=== PATIENT | male | born 1935 | race Caucasian/White ===

== ENCOUNTER 2017-08-17 15:38 | Emergency (ER) | payer OTHER ==
[2017-08-17 15:52] VITALS: BP 156/97
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
== END 2017-08-17 18:18 | disposition home or self-care (01) ==
DX: S06.0X0A Concussion without loss of consciousness, initial encounter (principal); S70.02XA Contusion of left hip, initial encounter; I10 Essential (primary) hypertension; I25.10 Atherosclerotic heart disease of native coronary artery without angina pectoris; Z87.891 Personal history of nicotine dependence; Z79.82 Long term (current) use of aspirin; V18.2XXA Unspecified pedal cyclist injured in noncollision transport accident in nontraffic accident, initial encounter

== ENCOUNTER 2017-08-25 17:19 | Emergency (ER) | payer OTHER ==
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
[2017-08-25] MEDS ORDERED: ACETAMINOPHEN 500 MG TAB PO ONE (18:32)
[2017-08-25 20:11] VITALS: BP 158/78
== END 2017-08-25 20:23 | disposition home or self-care (01) ==
DX: S42.142A Displaced fracture of glenoid cavity of scapula, left shoulder, initial encounter for closed fracture (principal); S70.02XA Contusion of left hip, initial encounter; I10 Essential (primary) hypertension; I25.10 Atherosclerotic heart disease of native coronary artery without angina pectoris; Z95.5 Presence of coronary angioplasty implant and graft; Z79.82 Long term (current) use of aspirin; W01.0XXA Fall on same level from slipping, tripping and stumbling without subsequent striking against object, initial encounter

== ENCOUNTER 2017-09-17 09:39 | Inpatient (IN) | payer OTHER ==
--- NOTE | 2017-09-17 10:00 | CPEKG ---
Heart Rate: 74 RR Interval: 811 P-R Interval: 168 QRSD Interval: 92 QT Interval: 404 QTC Interval: 449 P [place]: 74 QRS [place]: 46 T Wave [place]: 39 EKG Severity - NORMAL ECG - EKG Impression: SINUS RHYTHM Electronically Signed By: Paulo Chisholm 17-Sep-2017 14:10:10
--- NOTE | 2017-09-17 10:18 | EDPHY ---
H & P Stated Complaint: DIFFICULTY SPEAKING, R ARM NUMBNESS Time Seen by Provider: 09/17/17 09:53 HPI/ROS: Chief Complaint: Difficulty speaking, numbness HPI: 82-year-old male with a history of coronary artery disease, diabetes and hypertension was reading his newspaper at 8:45 a.m. This morning when he was having difficulty understanding the words and had to reduce several times. He tried to speak with his and he was unable to get words out. He also is complaining of some weakness and numbness in his right face and right hand. This persisted for about 30-45 minutes. Does not have a history of similar episodes in the past. He says he feels much better and about back to his baseline now. Denies any recent falls. No chest pain shortness of breath. He does take a full adult aspirin every day. 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 ROS: 10 point Review of Systems is negative except as noted in the HPI. Social History: No smoking, no alcohol, no recreational drug use Family History: non-contributory Physical Exam: Gen: Awake, Alert, No Distress HEENT: Nose: no rhinorrhea Eyes: PERRLA, EOMI Mouth: Moist mucosa Neck: Supple, no JVD Chest: nontender, lungs clear to auscultation Heart: S1, S2 normal, no murmur Abd: Soft, non-tender, no guarding Back: no CVA tenderness, no midline tenderness Ext: no edema, non-tender Skin: no rash Neuro: See NIH stroke score - Personal History Current Tetanus/Diphtheria Vaccine: Unsure Tetanus Vaccine Date: guessing 10 years ago - Medical/Surgical History Hx Asthma: No Hx Chronic Respiratory Disease: No Hx Diabetes: No Hx Cardiac Disease: Yes Hx Renal Disease: No Hx Cirrhosis: No Hx Alcoholism: No Hx HIV/AIDS: No Hx Splenectomy or Spleen Trauma: No Other PMH: 2 Stents, CAD, prostate surgery, hernia repair surgery, HTN, knee sx , chronic back pain, NIDDM, hyperlipidemia - Social History Smoking Status: Former smoker Constitutional: Initial Vital Signs Temperature (C) 36.8 C 09/17/17 09:44 Heart Rate 81 09/17/17 09:44 Respiratory Rate 16 09/17/17 09:44 Blood Pressure 178/100 H 09/17/17 09:44 O2 Sat (%) 92 09/17/17 09:44 O2 Delivery Mode Room Air Allergies/Adverse Reactions: No Known Allergies Allergy (Verified 08/17/17 15:53) Home Medications: Medication Instructions Recorded Pantoprazole Sodium [Protonix 40mg 40 mg PO DAILY 04/25/15 (*)] Aspirin [Aspirin 325 mg (*)] 325 mg PO HS 08/17/17 Clopidogrel Bisulfate [Plavix (*)] 75 mg PO HS 08/17/17 metFORMIN HCL [Glucophage 500 mg 500 mg PO DAILY 08/17/17 (*)] Atorvastatin Calcium [Lipitor 40 80 mg PO HS 09/17/17 mg (*)] Calcium Carbonate [Oyster Shell 500 mg PO DAILY 09/17/17 Calcium 500 mg (*)] Carboxymethylcellulose 1% [Refresh 1 drop EACHEYE DAILY PRN 09/17/17 Celluvisc (*)] Cholecalciferol Vit D3 [Vitamin D3 1,000 units PO DAILY 09/17/17 (*)] Lactase [Lactase 3000 Unit (*)] 3,000 unit PO DAILY PRN 09/17/17 Losartan Potassium [Cozaar 25 mg 25 mg PO DAILY 09/17/17 (*)] Melatonin [Melatonin 3 MG (*)] 3 mg PO HS PRN 09/17/17 Metoprolol Succinate Xr [Toprol Xl 50 mg PO HS 09/17/17 50 mg (*)] Multivitamins [Multivitamin (*)] 1 each PO DAILY 09/17/17 metFORMIN HCL [Glucophage 1000 mg] 1,000 mg PO DAILY18 09/17/17 Medical Decision Making - Diagnostics Imaging Results: Imaging Impressions Head CT 09/17/17 09:54 Impression: Stable elderly head CT x 5 weeks. Results called and discussed with Paulo Chisholm MD, at 09/17/2017 10:49 General information for patients regarding this examination can be found at [email or web address]. If you have questions or comments about this report, please contact me at [phone] (hospital) or [phone] (cell). Imaging: Discussed imaging studies w/ career representative Radiologist ED Course/Re-evaluation: 82-year-old male with episode of a facial numbness. Symptoms have resolved. NIH score of [address] head is unremarkable for acute process per Dr. Villa. I have discussed with the hospitalist. Will be admitted under Dr. Perez for further evaluation. - Data Points Laboratory Results: Laboratory Results 09/17/17 09:45 09/17/17 09:49 09/17/17 09/17/17 09/17/17 09:54 09:49 09:45 WBC 4.67 10^3/uL 10^3/uL (3.80-9.50) RBC 3.56 10^6/uL L 10^6/uL (4.40-6.38) Hgb 11.6 g/dL L g/dL (13.7-17.5) POC Hgb 10.9 gm/dL L gm/dL (13.7-17.5) Hct 33.5 % L % (40.0-51.0) POC Hct 32 % L % (40-51) MCV 94.1 fL fL (81.5-99.8) MCH 32.6 pg pg (27.9-34.1) MCHC 34.6 g/dL g/dL (32.4-36.7) RDW 14.0 % % (11.5-15.2) Plt Count 148 10^3/uL L 10^3/uL (150-400) MPV 9.4 fL fL (8.7-11.7) Neut % (Auto) 61.1 % % (39.3-74.2) Lymph % (Auto) 30.2 % % (15.0-45.0) [place] % (Auto) 6.6 % % (4.5-13.0) Eos % (Auto) 1.3 % % (0.6-7.6) Baso % (Auto) 0.6 % % (0.3-1.7) Nucleat RBC Rel Count 0.0 % % (0.0-0.2) Absolute Neuts (auto) 2.85 10^3/uL 10^3/uL (1.70-6.50) Absolute Lymphs (auto) 1.41 10^3/uL 10^3/uL (1.00-3.00) Absolute Monos (auto) 0.31 10^3/uL 10^3/uL (0.30-0.80) Absolute Eos (auto) 0.06 10^3/uL 10^3/uL (0.03-0.40) Absolute Basos (auto) 0.03 10^3/uL 10^3/uL (0.02-0.10) Absolute Nucleated RBC 0.00 10^3/uL 10^3/uL (0-0.01) Immature Gran % 0.2 % % (0.0-1.1) Immature Gran # 0.01 10^3/uL 10^3/uL (0.00-0.10) POC Sodium 142 mEq/L mEq/L (135-145) Sodium 142 mEq/L mEq/L (135-145) POC Potassium 4.1 mEq/L mEq/L (3.3-5.0) Potassium 4.2 mEq/L mEq/L (3.3-5.0) POC Chloride 102 mEq/L mEq/L (97-110) Chloride 103 mEq/L mEq/L (97-110) Carbon Dioxide 29 mEq/l mEq/l (22-31) Anion Gap 10 mEq/L mEq/L (8-16) POC BUN 23 mg/dL mg/dL (7-23) BUN 23 mg/dL mg/dL (7-23) Creatinine 1.0 mg/dL mg/dL (0.7-1.3) POC Creatinine 1.2 mg/dL mg/dL (0.7-1.3) Estimated GFR > 60 Glucose 218 mg/dL H mg/dL (70-100) POC Glucose 225 mg/dL H mg/dL (70-100) Calcium 9.8 mg/dL mg/dL (8.5-10.4) Total Bilirubin 0.7 mg/dL mg/dL (0.1-1.4) AST 24 IU/L IU/L (17-59) ALT 33 IU/L IU/L (21-72) Alkaline Phosphatase 60 IU/L IU/L (38-126) Total Protein 6.4 g/dL g/dL (6.3-8.2) Albumin 3.9 g/dL g/dL (3.5-5.0) Point of Care Test Results: Chemistry 09/17/17 09:54 POC Sodium 142 mEq/L mEq/L (135-145) POC Potassium 4.1 mEq/L mEq/L (3.3-5.0) POC Chloride 102 mEq/L mEq/L (97-110) POC BUN 23 mg/dL mg/dL (7-23) POC Creatinine 1.2 mg/dL mg/dL (0.7-1.3) POC Glucose 225 mg/dL H mg/dL (70-100) ISTAT H&H 09/17/17 09:54 POC Hgb 10.9 gm/dL L gm/dL (13.7-17.5) POC Hct 32 % L % (40-51) NIH Stroke Scale Date of Exam: 09/17/17 Time of Exam: 09:45 Level of Consciousness: Alert LOC Questions: Answers Both LOC Commands: Performs Both Correctly Best Gaze: Normal Visual: No Visual Loss Facial Palsy: Normal Motor Arm-Left: No Drift Motor Arm-Right: No Drift Motor Leg-Left: No Drift Motor Leg-Right: No Drift Limb Ataxis: Absent Sensory: Normal Best Language: No Aphasia Dysarthria: Normal Extinction and Inattention (Neglect): No Abnormality NIH Scale Score: 0
[2017-09-17 10:49] LABS: PLATELET COUNT 148 10^3/uL (150-400)
[2017-09-17] MEDS ORDERED: ONDANSETRON DISINTEGRATING 4 MG TAB PO PRN (12:23)
[2017-09-17] MEDS ORDERED: ONDANSETRON 4 MG/2 ML VIAL IVP PRN (12:23)
[2017-09-17] MEDS: ACETAMINOPHEN 325 MG TAB PO PRN ×2 (12:41→18:20)
[2017-09-17] MEDS ORDERED: CARBOXYMETHYLCELLULOSE 1% 0.4 ML DROPERETTE EACHEYE PRN (12:45)
[2017-09-17] MEDS ORDERED: MELATONIN 3 MG TAB PO PRN (12:45)
[2017-09-17] MEDS ORDERED: LACTASE 3,000 UNIT TAB PO PRN (12:45)
[2017-09-17] MEDS ORDERED: D50W 25 GM/50 ML SYR IVP PRN (12:49)
--- NOTE | 2017-09-17 13:47 | GHP ---
[f rep st] HISTORY AND PHYSICAL DATE OF ADMISSION: 09/17/2017 CHIEF COMPLAINT: Difficulty speaking. HISTORY OF PRESENT ILLNESS: This is an 82-year-old man with a history of heart disease, who presents with difficulty speaking. This occurred at about 8:30 this morning. He was trying to read the news paper, had no problem with his vision, but was unable to understand what he was reading. He also not iced that his right arm was "clumsy." He got up to go to the bathroom, felt odd with these symptoms, as well as a headache, and was going to ask his to bring him to the hospital. He had significa nt difficulty getting these words out. This was not associated with any other weakness in his legs o r confusion. Symptoms resolved in about 20 minutes. He tells me that all the symptoms are completel y resolved, except for the headache. He follows with Varun Miles, had a heart monitor placed about a week ago. He was told that he was skipping beats. He checks his blood pressure at home. His blood pressure was very normal about an hour before the event happened. PAST MEDICAL/SURGICAL HISTORY: 1. Coronary artery disease. 2. Hyperlipidemia. 3. Hypertension. 4. Diabetes mellitus. 5. Chronic kidney disease. 6. 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 7. Lung nodule with a negative biopsy. 8. Prostate cancer, status post radical resection about 25 years ago. MEDICATIONS: Please see medication reconciliation. ALLERGIES: No known drug allergies. FAMILY HISTORY: He believes that his father had a stroke. SOCIAL HISTORY: He drinks about two 5-ounce glasses of wine a night and about 2-3 beers a week. He does not smoke. REVIEW OF SYSTEMS: He has a 10-point negative review of systems, except per HPI. PHYSICAL EXAM: VITAL SIGNS: Blood pressure initially on presentation was 178/100, down to 156/77, h eart rate 81, respiration rate 16, saturating at 92% on room air. Temperature 36.8. GENERAL: The kaela stevens is a pleasant man who is resting comfortably, fully participating in the interview. HEENT: ows him to be normocephalic, atraumatic. CARDIOVASCULAR: Quite diminished S1 and S2. He has occasi onal premature beats. I do not appreciate any murmurs, rubs, or gallops. PULMONARY: Lungs clear to auscultation bilaterally. ABDOMEN: Soft, nontender, nondistended. SKIN: No rash. : No Preston. NEUROLOGIC: Exam shows him to be alert and oriented x3. Cranial nerves 2-12 are intact. Finger-to -nose, as well as dysmetria are normal bilaterally. His motor is 5/5 in the upper and lower extremit ies throughout. He has sensation to light touch intact in the upper and lower extremities. PSYCHIAT ROWAN: Exam shows a normal mood and affect. LABS: His hemoglobin is 11.6. This is the same as his last lab check. Platelets are 148. Basic met abolic panel shows a creatinine of 1.0. Sugar is 218. LFTs are unremarkable. DATA: 1. Reviewed his head CT scan. This shows nothing acute since the last head CT scan 5 weeks ago. 2. EKG, which I personally reviewed and interpreted, shows sinus rhythm. He has mild T-wave flatten ing in lead III. He has a normal axis. IMPRESSION AND PLAN: 1. Neurologic changes: Suspect that this was a transient ischemic attack. Also consider could cons ider complex migraine, as well as hypertensive encephalopathy. Symptoms have resolved. He is curren tly on maximal treatment for his heart disease, which is appropriate treatment for a transient ischem ic attack. This would change if he is having intermittent atrial fibrillation. Will get a carotid u ltrasound of his neck. I would hold on contrast imaging given low likelihood of changing management and mild chronic kidney disease. We will check an echocardiogram, place him on telemetry and have pl aced a neurology consult. 2. Coronary artery disease: He follows with Dr. Miles. He did have stents placed, but not recentl y. We will continue his aspirin, Plavix, statin, and beta-rosalio. 3. Hypertension: Will follow his blood pressures while he is here. Will continue his metoprolol fo r now. Would not be too aggressive with his blood pressure control at this time. 4. Diabetes mellitus: Will hold his metformin, follow his blood sugars, place him on sliding scale insulin. 5. Chronic kidney disease: Creatinine is normal at this point. Will be careful with nephrotoxins. 6. Prostate cancer, status post radical resection. He is followed by Dr. Yang. He has an artifici al urethral sphincter in. He would need a urology consult prior to placing a Preston if this becomes n ecessary. 7. Still waiting on urinalysis. 8. He is a full code, full tube. He confirms this with me. Copy requested to: Dr. Franco Osborne Marketing Developer /[id number]/[id number]
--- NOTE | 2017-09-17 16:13 | GCON ---
[f rep st] CONSULTATION NEUROLOGY CONSULTATION DATE OF CONSULTATION: 09/17/2017 REFERRING PHYSICIAN: Everton Perez MD CHIEF COMPLAINT: Transient neurologic symptoms. HISTORY OF PRESENT ILLNESS: The patient is a very pleasant 82-year-old gentleman with known coronary artery disease on dual antiplatelet therapy with aspirin and Plavix. The patient also is being monitored for [address] Miles of Cardiology for any possible underlying dysrhythmia. He does not have a diagnosis of atrial fibrillation or atrial flutter at this point that I am aware of. The patient was sitting at home after breakfast reading the paper this morning when he suddenly realized he could see the words and letters, but had trouble comprehending meaning from the words and sentences and was unable to read clearly. He struggled to do this for a few minutes and then realized that his right hand was discoordinated. Prior to these symptoms starting, the patient had a slow onset of holocephalic or occipital headache, which slowly grew in intensity with the symptoms starting as described above. He has no history of migraines personally. He then spoke to his and found that he knew what he wanted to say, but the words were coming out less clearly or nonsensically. All of these symptoms lasted for around 20 to 30 minutes and spontaneously resolved. The headache continued and now is slowly diminishing over several hours after the focal neurologic symptoms resolved. He came into the emergency department and was found to have a blood pressure of 170s over 100, which is very elevated for this patient. It is now lowering. He had a carotid Doppler, which is pending. Echo ordered and pending. The head CT showed nothing acute. PAST MEDICAL/SOCIAL/FAMILY/HISTORY/MEDICATIONS/ALLERGIES: See Dr. Perez's H and P. PHYSICAL EXAMINATION: VITAL SIGNS: Blood pressure is now 140s over 70s. He is afebrile. Respiration 18. GENERAL: In no acute distress, very pleasant. NEUROLOGIC: Higher mental function: He is awake and alert. He has no aphasia now. His speech is fluent and clear. He can follow commands 5/5, names 5/5, and repeat 5/5. Cranial nerve exam is normal 2 through 7. He has no facial droop or weakness. On motor exam, there is no focal weakness. Sensory is normal to light touch throughout. Coordination is normal. IMPRESSION/PLAN: 1. Transient neurologic symptoms, resolved. 2. Hypertension. 3. Coronary artery disease. I think the primary differential diagnosis for these transient neurologic symptoms are a left hemisphere transient ischemic attack or a hypertensive encephalopathy with focal symptoms. The factors suggesting hypertensive encephalopathy with transient ischemic attack-like symptoms would be the concomitant headache and elevated blood pressures upon initial evaluation in the emergency department. However, I counseled the patient that we should treat this as if he had a left hemisphere transient ischemic attack. He is agreeable to the plan. He will continue dual anti-platelet therapy. We will await results of echocardiogram and carotid ultrasound. If there are no significant abnormalities on echocardiogram or carotid ultrasound, then the plan would be to discharge with Cardiology followup with his 30 day event monitor. If the 30-day event monitor is negative, then consideration for an implantable area operations director (LINQ) would be reasonable. He understands that if he has atrial fibrillation/flutter, then anti-platelet therapy would need to be changed to oral anticoagulation. Otherwise, if this was a hypertensive emergency diagnosis, then we discussed that the tight control of blood pressure would be long-term treatment, in addition to his other medications for vascular disease. He understood and appreciate the counseling. Seventy total minutes floor time reviewing previous and current hospital records , direct counseling of the patient and coordination of care. I did speak with Dr. Perez regarding our plan. The patient may discharge later today or tomorrow morning. He can follow up with Neurology as well as needed. We will sign off and follow up p.r.n. Please do not hesitate to call if there are any questions or change in neurologic status with this very pleasant patient. Thank you for the consult. /[id number]/MODL MTDD
--- NOTE | 2017-09-17 16:28 | ECHO ---
[email or web address] [address] [address] Main: [phone] Fax: Transthoracic Echocardiogram Name: MATTHEW HEARD MR#: [id number] Study Date: 09/17/2017 Study Time: 02:56 PM Date of : 1935 Age: 82 year(s) Height: 177.8 cm (70 in.) Weight: 72.58 kg (160 lb.) BSA: 1.9 m2 Gender: Male Examination: Indication: TIA Image Quality: Contrast: Requested by: Everton Perez BP: / Heart Rate: Rhythm: Normal sinus rhythm with ectopy Indication: TIA Procedure Staff Silver Cleaner: George Wahl RDCS Reading Physician: Osvaldo Varela MD Requesting Provider: Conclusions: Normal size left ventricle. Normal global systolic LV function. EF is 69 %. No regional wall motion abnormality. Diastolic dysfunction is present. . Mild mitral valve leaflet calcification is present. Trivial to mild mitral regurgitation. Mild aortic cusp calcification is noted. Mild aortic valve regurgitation is present. No obvious cardiac source for embolism. Consider CANELO if there is a high clinical index of suspicion. Measurements: Chambers Valvular Assessment AV/MV Valvular Assessment TV/PV Normal Normal Normal Name Value Range Name Value Range Name Value Range Ao Julissa (MM): 3.4 cm (2.2 cm-3.7 AV Vmax: 1.03 m/s (1 m/s-1.7 PV Vmax: 0.91 m/s (0.6 m/s-0.9 cm) m/s) m/s) IVSd (2D): 1.0 cm (0.6 cm-1.1 AV maxP mmHg ( - ) PV PGmax: 3 mmHg ( - ) cm) AV meanP mmHg ( - ) LVDd (2D): 4.4 cm (4.2 cm-5.9 GREG (VTI): 2.8 cm ( - ) cm) AR (PHT): 599 ms ( - ) LVDs (2D): 2.7 cm (2.1 cm-4 MV E Vmax: 0.58 m/s ( - ) cm) MV A Vmax: 0.90 m/s ( - ) LVPWd (2D): 1.0 cm (0.6 cm-1 cm) MV E/A: 0.64 ( - ) LVOTd 2.1 cm 2.1 cm mm LVEF (2D): 69 (>=54 %) Continued Measurements: Chambers Valvular Assessment AV/MV Patient: MATTHEW HEARD Study Date: 09/17/2017 Page 1 of 2 02:56 PM Name Value Name Value LADs Lon.4 cm MV E' Septal: 0.04 m/s LA Area: 16.3 cm2 MV E/E' Septal: 16.60 MV E/E' Lateral: 10.70 AR Vmax: 2.77 cm/s AR VTI: 111.0 cm Findings: Left Ventricle: Normal size left ventricle. No LV hypertrophy. Normal global systolic LV function. EF is 69 %. No regional wall motion abnormality. Diastolic dysfunction is present. . Right Ventricle: Normal size right ventricle. Normal RV function. Left Atrium: The left atrium is normal in size. Right Atrium: The right atrium is normal in size. Mitral Valve: Mild mitral valve leaflet calcification is present. Trivial to mild mitral regurgitation. Aortic Valve: Mild aortic cusp calcification is noted. Mild aortic valve regurgitation is present. No aortic valve stenosis is present. Tricuspid Valve: The tricuspid valve is normal in appearance and function. Pulmonic Valve: The pulmonic valve is normal in appearance and function. Aorta: The aorta is normal. Pericardium: No pericardial effusion. (No Signature Object) Patient: MATTHEW HEARD Study Date: 09/17/2017 Page 2 of 2 02:56 PM [id number]
[2017-09-17] MEDS: INSULIN LISPRO 100 UNIT/ML SC SCH (18:20)
[2017-09-17] MEDS ORDERED: NS 1,000 ML IV SCH (20:00)
[2017-09-17] MEDS ORDERED: IOPAMIDOL (ISOVUE 370) 100 ML BTL IV ONE (20:03)
[2017-09-17] MEDS: ATORVASTATIN CALCIUM 40 MG TAB PO SCH (20:41)
[2017-09-17] MEDS: METOPROLOL SUCCINATE XR 50 MG TAB PO SCH (20:42)
[2017-09-17] MEDS: ASPIRIN 325 MG TAB PO SCH (20:43)
[2017-09-17] MEDS ORDERED: CLOPIDOGREL BISULFATE 75 MG TAB PO SCH (21:00)
[2017-09-18] MEDS: INSULIN LISPRO 100 UNIT/ML SC SCH ×4 (08:14→17:56)
[2017-09-18] MEDS: PANTOPRAZOLE SODIUM 40 MG TAB PO SCH (08:20)
[2017-09-18] MEDS: CHOLECALCIFEROL VIT D3 1,000 UNITS TAB PO SCH (08:20)
[2017-09-18] MEDS: MULTIVITAMINS 1 EACH TAB PO SCH (08:20)
--- NOTE | 2017-09-18 09:20 | NEUROPROG ---
Assessment: ADDENDUM TO CONSULT: Carotid u/s and revised CTA neck reviewed. Appears that LICA has >70% stenosis. Recommendations: Consultation with surgery (Dr. Hitchcock) Objective: Vital Signs Temp Pulse Resp BP Pulse Ox 36.4 C 64 15 142/68 H 98 09/18/17 08:00 09/18/17 08:00 09/18/17 08:00 09/18/17 08:00 09/18/17 08:00 Laboratory Results 09/18/17 04:17 09/17/17 09/18/17 09/19/17 05:59 05:59 05:59 Intake Total 750 Output Total 1325 525 Balance -575 -525 Allergies/Adverse Reactions: No Known Allergies Allergy (Verified 08/17/17 15:53)
[2017-09-18] MEDS ORDERED: HEPARIN 10,000 UNIT/10 ML MDV (1,000 UNIT/ML) IVP PRN (12:50)
--- NOTE | 2017-09-18 12:57 | HOSPPROG ---
Hospitalist Progress Note Assessment/Plan: # TIA with 74% L ICA stenosis - discussed with Dr Hitchcock - plans CEA tomorrow - heparin gtt overnight - otherwise, hold plavix, cont asa, cont statin # CAD - hold plavix while on heparin gtt - cont asa/statin/metop # casey-operative planning - Dr Bryson will consult given Dr Miles's concern for pauses and patient wearing a heart monitor (nothing on tele) # htn - cont metop # DM - cont SSI Subjective: still no recurrence of aphasia or R arm weakness Objective: Vital Signs Temp Pulse Resp BP Pulse Ox 36.6 C 70 11 L 108/59 L 96 09/18/17 11:32 09/18/17 11:32 09/18/17 11:32 09/18/17 11:32 09/18/17 11:32 Laboratory Results 09/18/17 04:17 09/17/17 09/18/17 09/19/17 05:59 05:59 05:59 Intake Total 750 Output Total 1325 525 Balance -575 -525 - Physical Exam Constitutional: no apparent distress, appears nourished Cardiovascular: regular rate and rhythym, no murmur, rub, or gallop Respiratory: no respiratory distress, no rales or rhonchi, clear to auscultation Gastrointestinal: normoactive bowel sounds, soft, non-tender abdomen, no palpable masses Neurologic: AAOx3, No facial droop ICD10 Worksheet Patient Problems: Problems Problem Status Onset SOCORRO (acute kidney injury) Acute Acute respiratory failure with hypoxia Acute Chronic Disease Mgmt/Transitional Care Acute Community acquired pneumonia Acute 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
[2017-09-18] MEDS ORDERED: HEPARIN/DEXTROSE 500 ML IV SCH (13:00)
--- NOTE | 2017-09-18 13:02 | SOAPPROG ---
MOHIT Progress Note Assessment/Plan: Assessment: 82-YEAR-OLD MALE WITH CLASSIC TIA NOW RESOLVED WITH NO NEURO DEFICIT CTA OF THE NECK REVEALS 75+% LEFT CAROTID STENOSIS AND CT OF THE HEAD REVEALS NO EVIDENCE OF CVA PAST HISTORY OF CARDIAC STENTS AND IS PRESENTLY ON A HEART MONITOR/HE HAS HAD NO PREVIOUS TIA SYMPTOMS HOWEVER HEENT WITH LEFT CAROTID BRUIT CHEST CLEAR COR REGULAR RHYTHM NEURO EXAM SYMMETRIC AND PHYSIOLOGIC, CRANIAL NERVES INTACT IMPRESSION CRITICAL LEFT CAROTID STENOSIS WITH TIA/ I WOULD RECOMMEND ANTICOAGULATION AND REPAIR SOON CONVENIENT RISKS AND OPTIONS FULLY DISCUSSED WITH THE PATIENT WHO WISHES TO PROCEED WITH LEFT CEA IN THE A.M. 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
[2017-09-18 14:10] LABS: PLATELET COUNT 158 10^3/uL (150-400)
[2017-09-18 14:18] LABS: INR 1.03 (0.83-1.16); PROTIME(PATIENT) 13.7 SEC (12.0-15.0)
--- NOTE | 2017-09-18 14:44 | GCON ---
[f rep st] CONSULTATION CARDIOLOGY CONSULTATION DATE OF CONSULTATION: 09/18/2017 REFERRING PHYSICIAN: Everton Perez MD INDICATION FOR CONSULTATION: History of coronary artery disease, TIA. Plan for carotid endarterecto my tomorrow with Dr. Hitchcock. Complaints of palpitations. HISTORY OF PRESENT ILLNESS: The patient is a pleasant 82-year-old gentleman known to [facility] ith a history of coronary artery disease status post PCI to the right coronary artery in 2012, diabet es, hypertension, and hyperlipidemia, who presented to [facility] yesterday with new onset of slurred speech at approximately 8:30 in the morning, coupled with difficulty with understand ing what he was reading in the newspaper and right arm weakness. His symptoms resolved in about 20 m inutes. Workup demonstrated 74% stenosis of the left proximal internal carotid artery, and plans for undergoi ng carotid endarterectomy with Dr. Cong Hitchcock tomorrow. The patient was most recently seen at [facility] by Dr. Varun Miles on August 23, 2017. From a cardi ac perspective, he had been complaining of symptoms of shortness of breath and dyspnea on exertion as well as fatigue. He states the symptoms had been somewhat worse over the previous 4-5 months. Cardozo felisha, he states he has felt this way for at least the last 3 years with no clear answer as to the unde rlying etiology of his symptoms. He had also complained of some intermittent "skipped beats." He is currently wearing a [employer] long-term heart monitor. There are no data to date. Telemetry at [facility] demonstrates sinus rhythm with no significant arrhythmias. He denies any complaints of exertional chest pain. He denies PND, orthopnea, or lower extremity irineo a. He does complain of some mild lightheadedness with change in position, with no associated syncope . He has had some recent falls, resulting in a concussion. He was seen at [facility] for this episode. Currently, at the time of my exam, he is resting comfortably. He is awake, alert, and oriented. PAST MEDICAL HISTORY: Coronary artery disease status post PCI to the RCA in 2012, hypertension, hype rlipidemia, diabetes, history of prostate cancer, essential hypertension, nocturnal hypoxemia. MEDICATIONS ON ADMISSION: Include aspirin 325 mg daily, atorvastatin 80 mg daily, Plavix 75 mg daily , metoprolol succinate 50 mg daily, Protonix 40 mg daily, glipizide 5 mg daily. ALLERGIES TO MEDICATION: None. SOCIAL HISTORY: He lives with his . His is present at the time of my exam. FAMILY HISTORY: No known history of premature coronary artery disease. PHYSICAL EXAMINATION: GENERAL: He is awake, alert, oriented, appropriate. No apparent distress. V ITAL SIGNS: Blood pressure 108/59, heart rate 70 (in sinus rhythm), oxygen saturation 96% on room ai r, temperature 36.6. NECK: There is no evidence of JVP or carotid bruits. LUNGS: Clear to auscult ation bilaterally. CARDIAC EXAM: S1, S2. Regular rate and rhythm. No murmurs, rubs, or gallops. PMI is not displaced. ABDOMEN: Soft, nontender, and nondistended. There is no pulsatile mass or ab dominal bruit. EXTREMITIES: There is no evidence of cyanosis, clubbing, or edema. DATA: White blood cell count 4.67, hemoglobin 11.6, hematocrit 33.5, platelets 148. Sodium 138, pot assium 3.7, chloride 109, bicarbonate 27, BUN 20, creatinine 0.9. Total cholesterol 122, triglycerid es 116, HDL 36, LDL 63. Echocardiogram performed September 17, 2017, demonstrates normal left ventricular size and function with LV EF of 69%. No wall motion abnormalities. Evidence of mild mitral and aortic valve calcifications an d no evidence of stenosis or significant regurgitation, with no obvious cardiac source of embolism. ECG demonstrates normal sinus rhythm at 74 beats per minute with normal intervals and normal axis. Q T corrected of [address] of the carotids demonstrates 74% left proximal internal carotid artery stenosis. Most recent stress test: Exercise nuclear stress test performed February 22, 2016, demonstrates no ev idence of ischemia, with LVEF of 56%. IMPRESSION: 1. New-onset transient ischemic attack with evidence of 74% stenosis of the left internal carotid ar harpal. 2. No evidence of cerebrovascular accident on CAT scan of the brain. Known history of coronary gena ry disease. He has been on dual antiplatelet therapy since his percutaneous coronary intervention in 2012. Echocardiogram demonstrates normal left ventricular function, no significant valvular disease , and no evidence of clear source of cardiac emboli or source of transient ischemic attack. Most rec ent stress test in February 2016 with no evidence of ischemia. He has recent complaints of palpitations and chronic complaints of shortness of breath, dyspnea, and fatigue. He is currently wearing a [employer] heart monitor secondary to complaints of irregular hea rt beats. No known history of atrial fibrillation. ECG demonstrates sinus rhythm. No events on tel emetry. PLAN: 1. No cardiac contraindication to pursuing carotid endarterectomy tomorrow. 2. Continue to keep patient on telemetry. 3. Continue to wear [employer] cardiac long-term monitor throughout the course of his hospitalizatio n. 4. Would recommend evaluation for obstructive sleep apnea as an outpatient with overnight oximetry. Please call with further questions or concerns. /[id number]/MODL
--- NOTE | 2017-09-18 14:46 | ASMTCMCOM ---
CM Note CM Note Notes: Pt admitted to r/o TIA. History includes coronary artery disease, hyperlipidemia, diabetes, chronic kidney disease, prostate cancer. Pt is and lives with his spouse. Per MD notes, pt found to have a 75% occlusion to the carotid artery; intervention and anticoagulation recommended Discharge needs remain unclear at this time. CM will continue to follow. Current Discharge Plan: To be determined Date Signed: 09/18/2017 02:45 PM Electronically Signed By:Mari James RN
[2017-09-18] MEDS: ASPIRIN 325 MG TAB PO SCH (20:19)
[2017-09-18] MEDS: ATORVASTATIN CALCIUM 40 MG TAB PO SCH (20:20)
[2017-09-18] MEDS: METOPROLOL SUCCINATE XR 50 MG TAB PO SCH (20:20)
[2017-09-18] MEDS ORDERED: INSULIN LISPRO 100 UNIT/ML SC ONE (22:00)
[2017-09-19] MEDS: INSULIN LISPRO 100 UNIT/ML SC SCH ×3 (08:11→18:47)
[2017-09-19] MEDS ORDERED: ceFAZolin 2 GM/DEXTROSE 100 ML IV ONE (08:35)
[2017-09-19] MEDS ORDERED: LR 1,000 ML IV ONE (09:49)
[2017-09-19] MEDS: CHOLECALCIFEROL VIT D3 1,000 UNITS TAB PO SCH (10:42)
[2017-09-19] MEDS: MULTIVITAMINS 1 EACH TAB PO SCH (10:42)
[2017-09-19] MEDS: PANTOPRAZOLE SODIUM 40 MG TAB PO SCH (10:43)
--- NOTE | 2017-09-19 10:48 | PDMN ---
Medical Necessity Medical necessity: Change to IP, as of 09/18/17, per MD; los >2 mn for ongoing management of TIA w/74% L ICA stenosis; requiring carotid endarterectomy; hx CAD , HTN & diabetes; per progress note & order 09/18/17
[2017-09-19] MEDS ORDERED: THROMBIN (BOVINE) 20,000 UNIT SPRAY TP ONE (11:45)
[2017-09-19] MEDS ORDERED: PROTAMINE SULFATE 50 MG/5 ML VIAL IVP ONE ×2 (11:45→14:23)
[2017-09-19] MEDS ORDERED: BUPIVACAINE 0.25% 30 ML SDV ONE (11:45)
--- NOTE | 2017-09-19 11:49 | PDANEPAE ---
ANE History of Present Illness 82 year old male with recent TIA for carotid endarterectomy. ANE Past Medical History - Cardiovascular History Hx Hypertension: Yes Hx Arrhythmias: Yes Hx Chest Pain: No Hx Coronary Artery / Peripheral Vascular Disease: Yes Hx CHF / Valvular Disease: Yes Hx Palpitations: Yes Cardiovascular History Comment: Stents x 2 in 2013. Has been wearing a heart monitor due to cardiac pauses. - Pulmonary History Hx COPD: No Hx Asthma/Reactive Airway Disease: No Hx Oxygen in Use at Home: No Hx Sleep Apnea: No Sleep Apnea Screening Result - Last Documented: Positive - Neurologic History Hx Cerebrovascular Accident: Yes Hx Seizures: No Hx Dementia: No Neurologic History Comment: TIA on 09-17-17. - Endocrine History Hx Diabetes: Yes Hypothyroid: No Hyperthyroid: No Obesity: no - Renal History Hx Renal Disorders: No - Cancer History Hx Cancer: No - Congenital Disorder History Hx Congenital Disorders: No - Chronic Pain History Chronic Pain: No ANE Review of Systems Review of Systems: - Exercise capacity Exercise capacity: <4 METS ANE Patient History - Allergies Allergies/Adverse Reactions: No Known Allergies Allergy (Verified 08/17/17 15:53) - Home Medications Home medications: home medication list seen and reviewed Home Medications: RX: Pantoprazole Sodium [Protonix 40mg (*)] 40 mg PO DAILY 04/25/15 [Last Taken 09/17/17] Aspirin [Aspirin 325 mg (*)] 325 mg PO HS 08/17/17 [Last Taken 09/16/17] Clopidogrel Bisulfate [Plavix (*)] 75 mg PO HS 08/17/17 [Last Taken 09/16/17] metFORMIN HCL [Glucophage 500 mg (*)] 500 mg PO DAILY 08/17/17 [Last Taken 09/17] Atorvastatin Calcium [Lipitor 40 mg (*)] 80 mg PO HS 09/17/17 [Last Taken ] Calcium Carbonate [Oyster Shell Calcium 500 mg (*)] 500 mg PO DAILY 09/17/17 [ Last Taken 09/17/17] Carboxymethylcellulose 1% [Refresh Celluvisc (*)] 1 drop EACHEYE DAILY PRN 09/17 [Last Taken Unknown] Cholecalciferol Vit D3 [Vitamin D3 (*)] 1,000 units PO DAILY 09/17/17 [Last Taken 09/17/17] Lactase [Lactase 3000 Unit (*)] 3,000 unit PO DAILY PRN 09/17/17 [Last Taken Unknown] Losartan Potassium [Cozaar 25 mg (*)] 25 mg PO DAILY 09/17/17 [Last Taken ] Melatonin [Melatonin 3 MG (*)] 3 mg PO HS PRN 09/17/17 [Last Taken Unknown] Metoprolol Succinate Xr [Toprol Xl 50 mg (*)] 50 mg PO HS 09/17/17 [Last Taken 09/16/17] Multivitamins [Multivitamin (*)] 1 each PO DAILY 09/17/17 [Last Taken 09/17/17] metFORMIN HCL [Glucophage 1000 mg] 1,000 mg PO DAILY18 09/17/17 [Last Taken 05/05] - NPO status NPO Status: no food or drink >8 hours NPO Since - Liquids (Date): 09/19/17 NPO Since - Liquids (Time): 00:00 NPO Since - Solids (Date): 09/19/17 NPO Since - Solids (Time): 00:00 - Anes Hx Anes Hx: no prior problems - Smoking Hx Smoking Status: Former smoker Marijuana use: No - Family Anes Hx Family Anes Hx: neg - N/A ANE Labs/Vital Signs - Labs Result Diagrams: 09/18/17 13:15 09/18/17 04:17 - Vital Signs Vital Signs: reviewed preoperatively; see RN documention for details Blood Pressure: 180/79 Heart Rate: 67 Respiratory Rate: 16 O2 Sat (%): 97 Height: 167.64 cm Weight: 68.39 kg ANE Physical Exam - Airway Neck exam: decreased ROM Mallampati Score: Class 3 Mouth exam: dentures Mouth image: 1 - bridge - Pulmonary Pulmonary: no respiratory distress - Cardiovascular Cardiovascular: regular rate and rhythym - ASA Status ASA Status: III ANE Anesthesia Plan Anesthesia Plan: general endotracheal anesthesia Lines/Monitors: arterial line
[2017-09-19] MEDS ORDERED: PROPOFOL/EMULSION 500 MG/50 ML BOTTLE IV ONE (12:02)
[2017-09-19] MEDS ORDERED: REMIFENTANIL HCL 1 MG VIAL ONE (12:02)
[2017-09-19] MEDS ORDERED: fentaNYL 100 MCG/2 ML INJ ONE ×2 (12:05→15:53)
[2017-09-19] MEDS ORDERED: PROPOFOL 200 MG/20 ML VIAL ONE (12:05)
--- NOTE | 2017-09-19 12:06 | SOAPPROG ---
MOHIT Progress Note Assessment/Plan: Assessment: 82-YEAR-OLD MALE WITH CLASSIC TIA NOW RESOLVED WITH NO NEURO DEFICIT CTA OF THE NECK REVEALS 75+% LEFT CAROTID STENOSIS AND CT OF THE HEAD REVEALS NO EVIDENCE OF CVA PAST HISTORY OF CARDIAC STENTS AND IS PRESENTLY ON A HEART MONITOR/HE HAS HAD NO PREVIOUS TIA SYMPTOMS HOWEVER HEENT WITH LEFT CAROTID BRUIT CHEST CLEAR COR REGULAR RHYTHM NEURO EXAM SYMMETRIC AND PHYSIOLOGIC, CRANIAL NERVES INTACT IMPRESSION CRITICAL LEFT CAROTID STENOSIS WITH TIA/ I WOULD RECOMMEND ANTICOAGULATION AND REPAIR SOON CONVENIENT RISKS AND OPTIONS FULLY DISCUSSED WITH THE PATIENT WHO WISHES TO PROCEED WITH LEFT CEA IN THE A.M. Plan: LEFT CAROTID ENDARTERECTOMY 09/18/17 13:00 09/19/17 12:05 SURGICAL RISKS AND OPTIONS AGAIN FULLY DISCUSSED THIS MORNING AND HE WISHES TO PROCEED WITH A LEFT CAROTID ENDARTERECTOMY. CHEST CLEAR. COR REGULAR RHYTHM. NEURO INTACT. PATIENT HAS BEEN ON HEPARIN OVERNIGHT Objective: Vital Signs Temp Pulse Resp BP Pulse Ox 36.6 C 67 16 180/79 H 97 09/19/17 09:52 09/19/17 11:51 09/19/17 11:51 09/19/17 11:51 09/19/17 11:51 Laboratory Results 09/18/17 13:15 09/18/17 09/19/17 09/20/17 05:59 05:59 05:59 Intake Total 850 Output Total 875 120 Balance -25 -120 PT 13.7 SEC (12.0-15.0) 09/18/17 13:15 INR 1.03 (0.83-1.16) 09/18/17 13:15 ICD10 Worksheet Patient Problems: Problems Problem Status Onset SOCORRO (acute kidney injury) Acute Acute respiratory failure with hypoxia Acute Chronic Disease [facility]/Transitional Care Acute Community acquired pneumonia Acute 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
[2017-09-19] MEDS ORDERED: PHENYLEPHRINE HCL 100 MCG/ML SYR ONE ×2 (12:26→13:18)
--- NOTE | 2017-09-19 12:42 | NEUROPROG ---
Assessment: PATIENT NOT SEEN - HE WAS IN OR 1. Left internal carotid artery stenosis 2. Left hemisphere TIA Patient is in OR for left CEA. I defer to surgery in terms of timing of restarting anti-platelet therapy postoperatively. Recommendations: 1. Restart anti-platelet therapy (per general surgery in terms of timing) postoperatively 2. Outpatient Cardiology follow-up to complete heart rhythm monitoring for possible paroxysmal atrial fibrillation. No further recommendations now. We will continue to follow up p.r.n. Please do not hesitate to call with any questions or changes in neurologic status with this very pleasant patient. Objective: Vital Signs Temp Pulse Resp BP Pulse Ox 36.6 C 67 16 180/79 H 97 09/19/17 09:52 09/19/17 11:51 09/19/17 11:51 09/19/17 11:51 09/19/17 11:51 Laboratory Results 09/18/17 13:15 09/18/17 09/19/17 09/20/17 05:59 05:59 05:59 Intake Total 850 Output Total 875 120 Balance -25 -120 PT 13.7 SEC (12.0-15.0) 09/18/17 13:15 INR 1.03 (0.83-1.16) 09/18/17 13:15 Allergies/Adverse Reactions: No Known Allergies Allergy (Verified 08/17/17 15:53)
[2017-09-19] MEDS ORDERED: ONDANSETRON 4 MG/2 ML VIAL ONE (13:13)
[2017-09-19] MEDS ORDERED: HEPARIN 10,000 UNIT/10 ML MDV (1,000 UNIT/ML) ONE (13:13)
[2017-09-19] MEDS ORDERED: DEXAMETHASONE 4 MG/ML VIAL ONE (13:13)
[2017-09-19] MEDS ORDERED: fentaNYL 100 MCG/2 ML INJ IVP PRN (13:53)
[2017-09-19] MEDS ORDERED: ONDANSETRON 4 MG/2 ML VIAL IVP PRN ×2 (13:53→18:00)
[2017-09-19] MEDS ORDERED: PHENYLEPHRINE HCL 100 MCG/ML SYR IVP PRN (13:53)
[2017-09-19] MEDS ORDERED: HYDROmorphONE/DILAUDID 1 MG/ML INJ IVP PRN (13:53)
[2017-09-19] MEDS ORDERED: LR 500 ML IV PRN (13:53)
[2017-09-19] MEDS ORDERED: NALOXONE HCL 0.4 MG/ML INJ IVP PRN (13:53)
[2017-09-19] MEDS ORDERED: BACITRACIN ZINC 14.2 GM OINTTUBE TP ONE (14:37)
[2017-09-19] MEDS ORDERED: LABETALOL HCL 5 MG/ML 20 ML MDV ONE (15:16)
[2017-09-19] MEDS: LABETALOL HCL 5 MG/ML 20 ML MDV IVP PRN ×3 (15:16→15:43)
--- NOTE | 2017-09-19 15:54 | HOSPPROG ---
Hospitalist Progress Note Assessment/Plan: # TIA with 74% L ICA stenosis s/p CEA today - restart anti-platelets when appropriate per Dr Hitchcock - cont lipitor - f/u Dr Miles for heart monitoring # CAD - cont asa/statin/metop # casey-operative planning - ok'd for surgery by Dr Bryson # htn - cont metop # DM - cont SSI Subjective: seen in PACU; s/p CEA today; c/o L jaw pain Objective: Vital Signs Temp Pulse Resp BP Pulse Ox 36.5 C 68 17 194/74 H 99 09/19/17 15:06 09/19/17 15:43 09/19/17 15:45 09/19/17 15:43 09/19/17 15:36 Laboratory Results 09/18/17 13:15 09/18/17 09/19/17 09/20/17 05:59 05:59 05:59 Intake Total 850 Output Total 875 270 Balance -25 -270 PT 13.7 SEC (12.0-15.0) 09/18/17 13:15 INR 1.03 (0.83-1.16) 09/18/17 13:15 high risk s/p CEA - Physical Exam Constitutional: uncomfortable Ears, Nose, Mouth, Throat: other (L neck gauze, CDI) Cardiovascular: no murmur, rub, or gallop, systolic murmur Respiratory: no respiratory distress, no rales or rhonchi, clear to auscultation Gastrointestinal: soft, non-tender abdomen, no palpable masses, No distension ICD10 Worksheet Patient Problems: Problems Problem Status Onset 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
--- NOTE | 2017-09-19 16:01 | POSTOPPROG ---
Post Op Note Date of Operation: 09/19/17 Surgeon: Cong Hitchcock Forensics Analyst: LEONA AGUILERA Anesthesiologist: JODY Anesthesia: GET(General Endotracheal) Pre-op Diagnosis: TIA AND LEFT CAROTID STENOSIS Post-op Diagnosis: SAME Indication: TIA AND 75% OCCLUSION Procedure: LEFT CAROTID ENDARTERECTOMY WITH EEG MONITORING Findings: TIGHT ULCERATED PLAQUE BUT NO NEUROLOGIC DEFICITS Inf/Abcess present in the surg proc area at time of surgery?: No Depth: Organ Space EBL: 50-100 Complications: NONE Specimen(s): PLAQUE
[2017-09-19] MEDS ORDERED: hydrALAZINE 20 MG/ML VIAL IVP PRN (16:04)
[2017-09-19] MEDS ORDERED: ONDANSETRON DISINTEGRATING 4 MG TAB PO PRN (18:00)
[2017-09-19] MEDS ORDERED: D5W 1/2 NS W/ 20 KCl/L 1,000 ML IV SCH (18:00)
[2017-09-19] MEDS ORDERED: OXYCODONE/APAP 5/325 TAB PO PRN (18:00)
[2017-09-19] MEDS: HYDROmorphONE/DILAUDID 1 MG/ML INJ IVP PRN (18:19)
--- NOTE | 2017-09-19 18:30 | SOAPPROG ---
MOHIT Progress Note Assessment/Plan: Assessment: 82-YEAR-OLD MALE WITH CLASSIC TIA NOW RESOLVED WITH NO NEURO DEFICIT CTA OF THE NECK REVEALS 75+% LEFT CAROTID STENOSIS AND CT OF THE HEAD REVEALS NO EVIDENCE OF CVA PAST HISTORY OF CARDIAC STENTS AND IS PRESENTLY ON A HEART MONITOR/HE HAS HAD NO PREVIOUS TIA SYMPTOMS HOWEVER HEENT WITH LEFT CAROTID BRUIT CHEST CLEAR COR REGULAR RHYTHM NEURO EXAM SYMMETRIC AND PHYSIOLOGIC, CRANIAL NERVES INTACT IMPRESSION CRITICAL LEFT CAROTID STENOSIS WITH TIA/ I WOULD RECOMMEND ANTICOAGULATION AND REPAIR SOON CONVENIENT RISKS AND OPTIONS FULLY DISCUSSED WITH THE PATIENT WHO WISHES TO PROCEED WITH LEFT CEA IN THE A.M. Plan: LEFT CAROTID ENDARTERECTOMY 09/18/17 13:00 09/19/17 12:05 SURGICAL RISKS AND OPTIONS AGAIN FULLY DISCUSSED THIS MORNING AND HE WISHES TO PROCEED WITH A LEFT CAROTID ENDARTERECTOMY. CHEST CLEAR. COR REGULAR RHYTHM. NEURO INTACT. PATIENT HAS BEEN ON HEPARIN OVERNIGHT 09/19/17 18:29 POSTOP: SOME PAIN/VITAL SIGNS STABLE/WOUND OKAY / NEURO INTACT Objective: Vital Signs Temp Pulse Resp BP Pulse Ox 36.6 C 70 13 117/45 L 100 09/19/17 16:37 09/19/17 18:00 09/19/17 18:00 09/19/17 18:00 09/19/17 18:00 Laboratory Results 09/18/17 13:15 09/18/17 09/19/17 09/20/17 05:59 05:59 05:59 Intake Total 850 3000 Output Total 875 745 Balance -25 2255 PT 13.7 SEC (12.0-15.0) 09/18/17 13:15 INR 1.03 (0.83-1.16) 09/18/17 13:15 ICD10 Worksheet Patient Problems: Problems Problem Status Onset SOCORRO (acute kidney injury) Acute Acute respiratory failure with hypoxia Acute Chronic Disease Mgmt/Transitional Care Acute Community acquired pneumonia Acute 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
[2017-09-19] MEDS ORDERED: NOREPINEPHRINE BITARTRATE 4 MG in NS 500 ML IV SCH (19:30)
[2017-09-19] MEDS ORDERED: NOREPINEPHRINE BITARTRATE 4 MG in D5W 500 ML IV SCH (19:30)
[2017-09-19] MEDS ORDERED: NS BOLUS 1000 ML (Wide open) IV ONE (19:30)
[2017-09-19] MEDS: LOSARTAN POTASSIUM 25 MG TAB PO SCH (20:23)
--- NOTE | 2017-09-19 20:26 | POSTANESTH ---
Post Anesthetic Evaluation Cardiovascular Status: Similar to Pre-Op Cond, Tx Hyper/Hypo-tension (Patient required labetalol and hydralazine in PACU to keep systolic BP < 160mmHg.) Respiratory Status: Normal, Stable, Similar to Pre-op Cond. Level of Consciousness/Mental Status: Can Participate in Eval, Alert and Oriented Pain Control: Adequate, Prn Tx Ordered Nausea/Vomiting Control: Adequate, Prn Tx Ordered Complications Possibly Related to Anesthesia: None Noted
[2017-09-19] MEDS: ASPIRIN 325 MG TAB PO SCH (20:27)
[2017-09-19] MEDS: ATORVASTATIN CALCIUM 40 MG TAB PO SCH (20:27)
[2017-09-19] MEDS: METOPROLOL SUCCINATE XR 50 MG TAB PO SCH (20:27)
[2017-09-19] MEDS ORDERED: NS W/ 20 KCl/L 1,000 ML IV SCH (23:45)
--- NOTE | 2017-09-20 02:38 | GOP ---
[f rep st] OPERATIVE REPORT DATE OF OPERATION: 09/19/2017 SURGEON: Cong Hitchcock MD HAT BRIM CURLER: Esperanza Joshi, nurse practitioner. ANESTHESIOLOGIST: Dr. White. PREOPERATIVE DIAGNOSIS: Transient ischemic attack and critical left carotid stenosis. POSTOPERATIVE DIAGNOSIS: Transient ischemic attack and critical left carotid stenosis. PROCEDURE PERFORMED: Left carotid endarterectomy with EEG monitoring. FINDINGS: The patient was found to have a tight ulcerated plaque in the origin of the internal carot id artery extending well up into the internal carotid itself. He had a fair amount of scar tissue in the area from previous procedure in the neck. DESCRIPTION OF PROCEDURE: The patient was taken to the operating room where he received a satisfacto ry general endotracheal anesthesia by Dr. White. The patient was systemically heparinized prior to induction of anesthesia. He was prepped and draped in the usual sterile fashion. A longitudinal inc ision was made along the anterior border of the sternocleidomastoid muscle. Dissection was carried d own through the platysma and subcutaneous tissue and then through the cervical fascia. The carotid a rterial tree was dissected free and exposed. There were multiple venous branches rather than 1 big f acial vein. These were multiply ligated and divided and the carotid arterial tree was completely exp osed with care to avoid injury to the hypoglossal nerve, common carotid, external carotid, internal c arotid, and the thyroid artery were all controlled with vessel loops. After adequate exposure was ac hieved additional heparin was given. The patient had been totally heparinized prior to induction of anesthesia. Good control was obtained. Arteriotomy was made in the common carotid and extended up t hrough the ulcerated plaque into the internal carotid artery. There was significant amount of bleedi ng encountered and posterior collateral branch coming through the carotid body was eventually identif ied and controlled with a bulldog vascular clamp. Expeditious endarterectomy was done removing the plaque with a good feathered end. A shunt was then placed in the artery and circulation was restored through the shunt. The carotid bed was evaluated. All debris was irrigated out or removed with vascular forceps. A Dacron patch was then sewn in plac e with a Hemashield 7 suture securing it to the arterial wall. When the suture line was almost compl ete, the shunt was cross clamped and removed and there was excellent return of flow. All vessels wer e flushed and the arteriotomy was completed. Flow was first established through the external carotid then back through the carotid and with good pulsations in the carotid artery above the suture line. The suture line was reinforced in places with interrupted 6-0 Prolene sutures where necessary. Hepa rin was reversed with protamine. The wound was sprayed with some topical thrombin, closed in layers using 3-0 Vicryl for the cervical fascia, 3-0 Vicryl for the platysma and subcutaneous tissue and a r unning vertical mattress 3-0 Prolene suture for the skin because of the ooziness of the skin edges. The wound was infiltrated with 0.5% Marcaine. He tolerated procedure well, was taken to the recovery room in good condition. He awoke moving all extremities and neurologically intact. /[id number]/MODL
[2017-09-20] MEDS: HYDROmorphONE/DILAUDID 1 MG/ML INJ IVP PRN ×2 (03:12→07:33)
[2017-09-20 04:25] LABS: PLATELET COUNT 135 10^3/uL (150-400)
[2017-09-20] MEDS: hydrALAZINE 20 MG/ML VIAL IVP PRN ×2 (07:19→23:24)
[2017-09-20] MEDS: LOSARTAN POTASSIUM 25 MG TAB PO SCH (08:32)
[2017-09-20] MEDS: CHOLECALCIFEROL VIT D3 1,000 UNITS TAB PO SCH (08:33)
[2017-09-20] MEDS: PANTOPRAZOLE SODIUM 40 MG TAB PO SCH (08:33)
[2017-09-20] MEDS: MULTIVITAMINS 1 EACH TAB PO SCH (08:33)
[2017-09-20] MEDS: INSULIN LISPRO 100 UNIT/ML SC SCH ×3 (08:33→17:12)
--- NOTE | 2017-09-20 09:57 | SOAPPROG ---
MOHIT Progress Note Assessment/Plan: Assessment: 82-YEAR-OLD MALE WITH CLASSIC TIA NOW RESOLVED WITH NO NEURO DEFICIT CTA OF THE NECK REVEALS 75+% LEFT CAROTID STENOSIS AND CT OF THE HEAD REVEALS NO EVIDENCE OF CVA PAST HISTORY OF CARDIAC STENTS AND IS PRESENTLY ON A HEART MONITOR/HE HAS HAD NO PREVIOUS TIA SYMPTOMS HOWEVER HEENT WITH LEFT CAROTID BRUIT CHEST CLEAR COR REGULAR RHYTHM NEURO EXAM SYMMETRIC AND PHYSIOLOGIC, CRANIAL NERVES INTACT IMPRESSION CRITICAL LEFT CAROTID STENOSIS WITH TIA/ I WOULD RECOMMEND ANTICOAGULATION AND REPAIR SOON CONVENIENT RISKS AND OPTIONS FULLY DISCUSSED WITH THE PATIENT WHO WISHES TO PROCEED WITH LEFT CEA IN THE A.M. Plan: LEFT CAROTID ENDARTERECTOMY 09/18/17 13:00 09/19/17 12:05 SURGICAL RISKS AND OPTIONS AGAIN FULLY DISCUSSED THIS MORNING AND HE WISHES TO PROCEED WITH A LEFT CAROTID ENDARTERECTOMY. CHEST CLEAR. COR REGULAR RHYTHM. NEURO INTACT. PATIENT HAS BEEN ON HEPARIN OVERNIGHT 09/19/17 18:29 POSTOP: SOME PAIN/VITAL SIGNS STABLE/WOUND OKAY / NEURO INTACT 09/20/17 09:56 DOING WELL/ VS STABLE/ AFEBRILE/ NEURO INTACT/ WOUND OK PLAN TRANSFER TO PCU/ CONTINUE PLAVIX AND LIPITOR Objective: Vital Signs Temp Pulse Resp BP Pulse Ox 36.6 C 70 15 130/45 H 92 09/20/17 09:00 09/20/17 09:00 09/20/17 09:00 09/20/17 09:00 09/20/17 09:00 Laboratory Results 09/20/17 04:11 09/20/17 04:11 09/19/17 09/20/17 09/21/17 05:59 05:59 05:59 Intake Total 850 5526.8 Output Total 875 1395 Balance -25 4131.8 PT 13.7 SEC (12.0-15.0) 09/18/17 13:15 INR 1.03 (0.83-1.16) 09/18/17 13:15 ICD10 Worksheet Patient Problems: Problems Problem Status Onset SOCORRO (acute kidney injury) Acute Acute respiratory failure with hypoxia Acute Chronic Disease Mgmt/Transitional Care Acute Community acquired pneumonia Acute 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
[2017-09-20] MEDS ORDERED: CALCIUM CARBONATE 500 MG CHEWABLE TAB PO PRN (15:17)
--- NOTE | 2017-09-20 16:13 | HOSPPROG ---
Hospitalist Progress Note Assessment/Plan: # TIA with 74% L ICA stenosis s/p CEA 09/19 - restart anti-platelets when appropriate per Dr Hitchcock - cont lipitor - f/u Dr Miles for heart monitoring # CAD - cont plavix/statin/metop # htn - cont metop # DM - cont SSI # dispo - possibly tomorrow Subjective: still with some jaw pain; very somnolent today Objective: Vital Signs Temp Pulse Resp BP Pulse Ox 36.4 C 77 12 146/69 H 94 09/20/17 12:00 09/20/17 12:00 09/20/17 12:00 09/20/17 12:00 09/20/17 12:00 Laboratory Results 09/20/17 04:11 09/20/17 04:11 09/19/17 09/20/17 09/21/17 05:59 05:59 05:59 Intake Total 850 5526.8 50 Output Total 875 1395 Balance -25 4131.8 50 PT 13.7 SEC (12.0-15.0) 09/18/17 13:15 INR 1.03 (0.83-1.16) 09/18/17 13:15 - Physical Exam Constitutional: no apparent distress, appears nourished Cardiovascular: regular rate and rhythym, no murmur, rub, or gallop Respiratory: no respiratory distress, no rales or rhonchi, clear to auscultation Gastrointestinal: normoactive bowel sounds, soft, non-tender abdomen Neurologic: AAOx3, other (motor 5/5 UE bilat) ICD10 Worksheet Patient Problems: Problems Problem Status Onset 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
[2017-09-20] MEDS: CLOPIDOGREL BISULFATE 75 MG TAB PO SCH (17:13)
[2017-09-20] MEDS: METOPROLOL SUCCINATE XR 50 MG TAB PO SCH (21:02)
[2017-09-20] MEDS: ATORVASTATIN CALCIUM 40 MG TAB PO SCH (21:02)
--- NOTE | 2017-09-21 08:57 | SOAPPROG ---
SOAP Progress Note Assessment/Plan: Assessment: s/p L CEA Ideally would like BP <150. Had one reading o SBP 180 Feeling well Eager to go home F/U with Dr. Hitchcock in 1-2 weeks Call if headaches, BP not controlled or concerns of bleeding or infection S: Feeling well. Eager to dc O: Incision CDI NV intact CTAB regular rate Plan: 09/21/17 08:55 Objective: Vital Signs Temp Pulse Resp BP Pulse Ox 36.8 C 81 18 120/61 95 09/21/17 07:56 09/21/17 07:56 09/21/17 07:56 09/21/17 07:56 09/21/17 07:56 Laboratory Results 09/20/17 04:11 09/20/17 04:11 09/20/17 09/21/17 09/22/17 05:59 05:59 05:59 Intake Total 5526.8 850 Output Total 1395 Balance 4131.8 850 PT 13.7 SEC (12.0-15.0) 09/18/17 13:15 INR 1.03 (0.83-1.16) 09/18/17 13:15 ICD10 Worksheet Patient Problems: Problems Problem Status Onset SOCORRO (acute kidney injury) Acute Acute respiratory failure with hypoxia Acute Chronic Disease Mgmt/Transitional Care Acute Community acquired pneumonia Acute 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
[2017-09-21] MEDS: INSULIN LISPRO 100 UNIT/ML SC SCH ×2 (09:04→12:58)
[2017-09-21] MEDS: CLOPIDOGREL BISULFATE 75 MG TAB PO SCH (09:05)
[2017-09-21] MEDS: PANTOPRAZOLE SODIUM 40 MG TAB PO SCH (09:05)
[2017-09-21] MEDS: CHOLECALCIFEROL VIT D3 1,000 UNITS TAB PO SCH (09:05)
[2017-09-21] MEDS: LOSARTAN POTASSIUM 25 MG TAB PO SCH (09:05)
[2017-09-21] MEDS: MULTIVITAMINS 1 EACH TAB PO SCH (09:05)
[2017-09-21 11:29] VITALS: BP 122/51
--- NOTE | 2017-09-21 12:16 | ASMTCMCOM ---
CM Note CM Note Notes: 09/21/2017 Case Management Note Met w/pt and to discuss d/c needs. PT recommending home PT. Pt agreeable to need for home care. Faxed referrals via [employer]. [facility] accepted pt. Pt has previously used [facility] outpatient PT and plans to resume after home care is complete. Case Management d/c poc: [facility] PT and OT Case Management to follow. Date Signed: 09/21/2017 12:15 PM Electronically Signed By:Nilsa Weinstein RN
[2017-09-21] MEDS ORDERED: LOSARTAN POTASSIUM 25 MG TAB PO PRN (12:30)
--- NOTE | 2017-09-21 12:30 | HOSPPROG ---
Hospitalist Progress Note Assessment/Plan: 82 yo M pod 3 from CEA TIA with 74% L ICA stenosis s/p CEA / -plavix restarted - cont lipitor - f/u Dr Miles for heart monitoring CAD - cont plavix/statin/metop htn - cont metop losartan DM - cont SSI dispo - home today > 30 minutes Subjective: case d/w dr queen. anxious for dc Objective: Vital Signs Temp Pulse Resp BP Pulse Ox 36.8 C 79 18 122/51 H 96 09/21/17 11:29 09/21/17 11:29 09/21/17 11:29 09/21/17 11:29 09/21/17 11:29 Laboratory Results 09/20/17 04:11 09/20/17 04:11 09/20/17 09/21/17 09/22/17 05:59 05:59 05:59 Intake Total 5526.8 850 Output Total 1395 Balance 4131.8 850 PT 13.7 SEC (12.0-15.0) 09/18/17 13:15 INR 1.03 (0.83-1.16) 09/18/17 13:15 - Physical Exam Constitutional: no apparent distress, appears nourished Eyes: PERRL, anicteric sclera Ears, Nose, Mouth, Throat: moist mucous membranes, hearing normal, other ( carotid incision c/d/i) Cardiovascular: regular rate and rhythym, no murmur, rub, or gallop Respiratory: no respiratory distress Gastrointestinal: normoactive bowel sounds, soft, non-tender abdomen Genitourinary: no bladder fullness, No ruiz in urethra Skin: warm, normal color Musculoskeletal: full muscle strength Neurologic: AAOx3 Psychiatric: interacting appropriately ICD10 Worksheet Patient Problems: Problems Problem Status Onset SOCORRO (acute kidney injury) Acute Acute respiratory failure with hypoxia Acute Chronic Disease Mgmt/Transitional Care Acute Community acquired pneumonia Acute 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
--- NOTE | 2017-09-21 13:01 | GDS ---
[f rep st] DISCHARGE SUMMARY DISCHARGE DIAGNOSES: 1. Transient ischemic attack. 2. Left carotid stenosis status post carotid endarterectomy. 3. Hypertension. 4. Coronary artery disease. 5. Diabetes. 6. Chronic kidney disease. HOSPITAL COURSE: Please see admission history and physical by Dr. Alejandro Perez. The patient presented with difficulty speaking. It was felt to be consistent with a TIA. He was not a candidate for lytics. He had carotid ultrasounds showing evidence of carotid artery disease. This was confirmed with CTA. He underwent carotid endarterectomy with Dr. Sumit Hitchcock without difficulty. He had his Plavix restarted. His aspirin was held for a week following surgery. His blood pressures intermittently elevated but mostly at goal. He was advised to take an additional losartan on a daily basis for blood pressures greater than 175. This was put in his discharge paperwork. He is to follow up with Dr. Hitchcock. /[id number]/MODL MTDD
--- NOTE | 2017-09-21 13:30 | NEUROPROG ---
Assessment: 1. Left internal carotid artery stenosis, status post left carotid endarterectomy this hospitalization 2. Left hemisphere TIA 35 total minutes floor time; this included review of interim inpatient records, direct counseling and coordination of care. Essentially, the patient has done very well with left carotid endarterectomy and has had no further symptoms of retinal or cerebral ischemia. He has been restarted on Plavix 75 mg daily by surgery. He will continue other cardiovascular medications as prescribed. I mainly followed up to see if the patient and his family had any further questions from the neurologic standpoint. I answered their questions to the best my ability. I recommend an indefinite anti-platelet therapy and follow-up with cardiology to complete his 30 day event monitor to screen for any paroxysmal atrial fibrillation. He is agreeable to the plan. I left my name and office number in case they need further neurologic follow- up. He will likely discharge home later today. We will sign off and follow up as needed. Subjective: No new symptoms Objective: Vital Signs Temp Pulse Resp BP Pulse Ox 36.8 C 79 18 122/51 H 96 09/21/17 11:29 09/21/17 11:29 09/21/17 11:29 09/21/17 11:29 09/21/17 11:29 Laboratory Results 09/20/17 04:11 09/20/17 04:11 09/20/17 09/21/17 09/22/17 05:59 05:59 05:59 Intake Total 5526.8 850 Output Total 1395 Balance 4131.8 850 PT 13.7 SEC (12.0-15.0) 09/18/17 13:15 INR 1.03 (0.83-1.16) 09/18/17 13:15 Awake alert No aphasia Decreased hearing Allergies/Adverse Reactions: No Known Allergies Allergy (Verified 08/17/17 15:53)
--- NOTE | 2017-09-21 15:10 | ASMTDCNOTE ---
Case Management Discharge Discharge Order Complete? Answers: Yes Patient to Obtain Answers: via Family Medications Transportation Arranged Answers: Family/Friends Faxed Final Orders Answers: Yes Agency/Facility Transfer Answers: Yes Report Printed & Faxed to Receiving Agency Discharge Comments Notes: 09/21/2017 Case Management Note Pt d/c with [facility]. Faxed final orders. Pt transported home. No further case management needs were identified. Date Signed: 09/21/2017 03:09 PM Electronically Signed By:Nilsa Weinstein RN
--- NOTE | 2017-09-21 15:11 | PDIAF ---
- Diagnosis Diagnosis: carotid stenosis Code Status: Full Code - Medication Management Discharge Medications: Medications to Continue on Transfer Pantoprazole Sodium [Protonix 40mg (*)] 40 mg PO DAILY 04/25/15 [Last Taken 06/02] Clopidogrel Bisulfate [Plavix (*)] 75 mg PO HS 08/17/17 [Last Taken 09/16/17] metFORMIN HCL [Glucophage 500 mg (*)] 500 mg PO DAILY 08/17/17 [Last Taken 09/17] Atorvastatin Calcium [Lipitor 40 mg (*)] 80 mg PO HS 09/17/17 [Last Taken ] Calcium Carbonate [Oyster Shell Calcium 500 mg (*)] 500 mg PO DAILY 09/17/17 [ Last Taken 09/17/17] Carboxymethylcellulose 1% [Refresh Celluvisc (*)] 1 drop EACHEYE DAILY PRN 09/17 [Last Taken Unknown] Cholecalciferol Vit D3 [Vitamin D3 (*)] 1,000 units PO DAILY 09/17/17 [Last Taken 09/17/17] Lactase [Lactase 3000 Unit (*)] 3,000 unit PO DAILY PRN 09/17/17 [Last Taken Unknown] Losartan Potassium [Cozaar 25 mg (*)] 25 mg PO DAILY 09/17/17 [Last Taken ] Melatonin [Melatonin 3 MG (*)] 3 mg PO HS PRN 09/17/17 [Last Taken Unknown] Metoprolol Succinate Xr [Toprol Xl 50 mg (*)] 50 mg PO HS 09/17/17 [Last Taken 09/16/17] Multivitamins [Multivitamin (*)] 1 each PO DAILY 09/17/17 [Last Taken 09/17/17] metFORMIN HCL [Glucophage 1000 mg] 1,000 mg PO DAILY18 09/17/17 [Last Taken 05/05] Aspirin [Aspirin 325 mg (*)] 325 mg PO DAILY #1 tab 09/21/17 [Last Taken Unknown ] Losartan Potassium [Cozaar 25 mg (*)] 25 mg PO DAILY PRN tab 09/21/17 [Last Taken Unknown] Discharge Medications: Refer to the Discharge Home Medication list for PRN reason. - Orders Services needed: Home Care, Registered Nurse, Physical Therapy, Occupational Therapy Home Care Face to Face: I certify that this patient was under my care and that I had the required [id number] encounter meeting the encounter requirements on the discharge day. My findings support the fact that the patient is homebound as defined in Home Care Face to Face Continued: CMS Chapter 7 Medicare Benefits Manual 30.1.1 , The condition of the patient is such that there exists a normal inability to leave home and consequently, leaving home would require a considerable and taxing effort. Isolation Type: None Diet Texture: Regular Texture Diet, Thin Liquids, Meds Whole w/Liquids, Meds Whole in Puree Additional Instructions: May shower F/U with Dr. Hitchcock in 1-2 weeks Call if headaches, BP not controlled or concerns of bleeding or infection - Follow Up Care Current Providers and Referrals: Cong Hitchcock MD [Medical Doctor] - (1-2 weeks) Keith Contreras MD [Primary Care Provider] - As per Instructions
--- NOTE | 2017-09-21 16:07 | ASDISCHSUM ---
Discharge Information Plan Status:Home with Home Health Medically Cleared to Leave:09/21/2017 Discharge Date:09/21/2017 02:00 PM CM D/C Disposition:Home Health Service ADT D/C Disposition:Home Health Service Projected Discharge Date:09/21/2017 11:00 AM Transportation at D/C:Family Discharge Delay Reason: Follow-Up Date:09/21/2017 11:00 AM Discharge Slot: Final Diagnosis: Placement Information Referral Type:*Home Health Care Services Referral ID:[id number] Provider Name:[facility] (formerly [facility]) Address 1[address] [facility] [address] [place] [place] [address] Address 2: City:[place] Selection Factors: State:[place] Patient Contact Information Contact Name:TANI Relationship: Address:[facility] Work Phone: City:[place] Alternate Phone: [facility]/Zip Code:[place] [address] Email: Financial Information Financial Class:Medicare Primary Plan Desc:MEDICARE INPATIENT Primary Plan Number:[id number] Secondary Plan Desc: Secondary Plan Number:[id number] Assessment Information LACE LACE Length of stay for Answers: 3 days current admission Acuity / Level of Answers: Yes Care: Did the patient have an inpatient admission? Comorbidities - select Answers: Any tumor (including all that apply lymphoma or leukemia) Coronary Artery Disease Diabetes (uncontrolled or controlled) Mild liver or renal disease Other Notes: HTN, hyperlipidemia # of Emergency department Answers: 3-4 visits in the last 6 months Score: 17 Date Signed: 09/21/2017 04:06 PM Electronically Signed By:Nilsa Weinstein RN [facility] CM Progress Note CM Note CM Note Notes: Pt admitted to r/o TIA. History includes coronary artery disease, hyperlipidemia, diabetes, chronic kidney disease, prostate cancer. Pt is and lives with his spouse. Per MD notes, pt found to have a 75% occlusion to the carotid artery; intervention and anticoagulation recommended Discharge needs remain unclear at this time. CM will continue to follow. Current Discharge Plan: To be determined Date Signed: 09/18/2017 02:45 PM Electronically Signed By:Mari James RN [facility] CM Progress Note CM Note CM Note Notes: 09/21/2017 Case Management Note Met w/pt and to discuss d/c needs. PT recommending home PT. Pt agreeable to need for home care. Faxed referrals via [employer]. [facility] accepted pt. Pt has previously used [facility] outpatient PT and plans to resume after home care is complete. Case Management d/c poc: [facility] PT and OT Case Management to follow. Date Signed: 09/21/2017 12:15 PM Electronically Signed By:Nilsa Weinstein RN Case Management Discharge Plan Note Case Management Discharge Discharge Order Complete? Answers: Yes Patient to Obtain Answers: via Family Medications Transportation Arranged Answers: Family/Friends Faxed Final Orders Answers: Yes Agency/Facility Transfer Answers: Yes Report Printed & Faxed to Receiving Agency Discharge Comments Notes: 09/21/2017 Case Management Note Pt d/c with [facility]. Faxed final orders. Pt transported home. No further case management needs were identified. Date Signed: 09/21/2017 03:09 PM Electronically Signed By:Nilsa Weinstein RN Intervention Information
== END 2017-09-21 14:00 | disposition home health service (06) | DRG 39 ==
LOC: INTOOBSV 11:17 → F3N 13:24 → OBSVTOIN 09-18 12:58 → F2N 09-19 14:41 → F2W 09-20 12:03
PROVIDERS: ADMIT Student in an Organized Health Care Education/Training Program; ATTEND Internal Medicine
PROC: 03CL0ZZ Extirpation of Matter from Left Internal Carotid Artery, Open Approach (ICD-10-PCS; principal; 2017-09-19 10:45)
DX: G45.9 Transient cerebral ischemic attack, unspecified (principal); I65.22 Occlusion and stenosis of left carotid artery; I25.10 Atherosclerotic heart disease of native coronary artery without angina pectoris; E78.5 Hyperlipidemia, unspecified; I12.9 Hypertensive chronic kidney disease with stage 1 through stage 4 chronic kidney disease, or unspecified chronic kidney disease; E11.9 Type 2 diabetes mellitus without complications; N18.9 Chronic kidney disease, unspecified; K86.9 Disease of pancreas, unspecified; R91.8 Other nonspecific abnormal finding of lung field; Z90.79 Acquired absence of other genital organ(s); Z85.46 Personal history of malignant neoplasm of prostate; Z79.82 Long term (current) use of aspirin
CPT/HCPCS: 82435-PO; 82565-PO; 82947-PO; 84132-PO; 84295-PO; 84520-PO; 85014-PO; 85520-90; 92610-GN; 97116-GP; 97161-GP; 97165-GO; 97535-GO; C1768; G0378; G8978-GP-CJ; G8979-GP-CI; G8987-GO-CI; G8988-GO-CI; G8996-GN-CH; G8996-GN-CI; G8997-GN-CH; G8998-GN-CH; J0360; J0690; J1100; J1170; J1644; J1815; J2370; J2405; J2704; J2720; J3010; Q9967

== ENCOUNTER 2017-09-22 08:57 | Observation (INO) | payer OTHER ==
--- NOTE | 2017-09-22 09:13 | CPEKG ---
Heart Rate: 70 RR Interval: 857 P-R Interval: 180 QRSD Interval: 94 QT Interval: 436 QTC Interval: 471 P [place]: 74 QRS [place]: 34 T Wave [place]: 55 EKG Severity - NORMAL ECG - EKG Impression: SINUS RHYTHM Electronically Signed By: Paulo Chisholm 22-Sep-2017 14:38:42
[2017-09-22 09:22] LABS: PLATELET COUNT 219 10^3/uL (150-400)
--- NOTE | 2017-09-22 09:34 | EDPHY ---
General Time Seen by Provider: 09/22/17 09:19 Narrative: CHIEF COMPLAINT: Loss of consciousness in the shower HISTORY OF PRESENT ILLNESS: Patient presents by EMS with complaints of loss of consciousness in the shower. This happened just prior to arrival. He was showering or 9:00 a.m. When he began to feel very warm and lightheaded. He began to feel faint and grabbed a hand support in the shower. He called for his . When she arrived she noticed him slumping down to the ground. He did strike his head on the side of the shower wall as he fell. She did not witness any seizure-like activity, shaking or urination. She said after only a few seconds he was much more coherent and conversing with her. He had no chest pain preceding this or at this time. He has no headache. He has ongoing neck pain from recent left end arterectomy this week. No numbness, tingling or weakness. No unilateral complaints. He was able to ambulate out of the shower but felt very lightheaded and laid down. EMS was activated. He does have 1 previous episode of vasovagal syncope remotely. No other associated complaints or modifying factors. REVIEW OF SYSTEMS: Ten systems reviewed and are negative unless otherwise noted in the HPI SPECIALISTS: Dr. Hitchcock, general surgeon Endocrinology PAST MEDICAL HISTORY: TIA, coronary artery disease, carotid stenosis, diabetes PAST SURGICAL HISTORY: Left Endarterectomy September 17, 2017 SOCIAL HISTORY: Never smoker. Retired. Lives independently with his spouse in [place] FAMILY HISTORY: Noncontributory EXAMINATION General Appearance: Alert, no distress Head: normocephalic, atraumatic. No Cruz sign. No raccoon eyes. No depression or hematoma. Eyes: EOM symmetric. Pupils equal and round, no conjunctival pallor or injection ENT, Mouth: Mucous membranes moist. Airway patent. Neck: There is a left-sided incision consistent with his recent endarterectomy that is clean, dry and intact. No dehiscence. No hematoma. No cellulitis or crepitus. There is no midline tenderness of the neck. No crepitus or deformity. Respiratory: Lungs are clear to auscultation. No wheezing rhonchi or crackles Cardiovascular: Regular rate and rhythm. No murmur Gastrointestinal: Abdomen is soft and nontender Back: non-tender, no bony abnormalities Neurological: GCS 15. A&O, nonfocal, strength is symmetric in all 4 limbs. No pronator drift. Normal [id number]. Skin: Warm and dry, no rash. Surgical incision as above. Skin is otherwise grossly intact. Extremities: Nontender, no pedal edema. Symmetric range of motion. Psychiatric: Mood and affect normal DIFFERENTIAL DIAGNOSES: Including but not limited to vasovagal syncope, syncope, seizure, dehydration, closed head injury, intracranial hemorrhage MDM: 9:25 a.m. Loss of consciousness that is suspected vasovagal episode. He has no headache. He has unchanged neck pain from recent surgery. No neuro complaints distally. There is no unilateral complaints or any abnormalities on his neuro examination. Vital signs are within normal limits with no hypotension. No chest pain. Cardiac workup commenced. Due to Plavix use and his head injury, I have ordered CT scan of the head and cervical spine. 10:40 a.m. Case discussed radiologist Dr. Underwood. We discussed the chronic changes as documented in the report. There are no acute findings. 11:00 a.m. Patient re-evaluated. I discussed his negative laboratory studies and CT scans. 11:20 a.m. Orthostatics are borderline positive with an 18 mm change in the systolic pressure, he has ambulated but felt somewhat lightheaded. I do feel it is reasonable for the patient to be admitted for observation, the patient is not comfortable going home. I will discuss with hospitalist for admission and we will proceed with slow IV fluid resuscitation. 11:30 a.m. Case discussed with hospitalist Dr. Aiken including his recent admission. He will admit the patient to his service. He requested a medical-surgical bed with telemetry, observation status. Patient is admitted in stable condition SUPERVISION: Patient was independently examined, but I discussed the case with my secondary supervising physician Dr. Chisholm - Diagnostics Imaging Results: Imaging Impressions Cervical Spine CT 09/22/17 09:35 Impression: 1. Elderly brain with atrophy and probable white matter small vessel disease. 2. Negative for intracranial hemorrhage. CT Cervical Spine Without Contrast History: Trauma. Technique: Multislice helical CT through the cervical spine without contrast from the skull base to T1. Soft tissue and bone evaluation is performed. Sagittal and coronal reconstructions are obtained and reviewed. Dose reduction techniques were utilized. Findings: There is mild reversal the normal cervical curvature. Postoperative changes of anterior cervical fusion are seen extending from C5 to C7. The hardware appears intact.. No fracture or dislocation is identified. The relationship between skull base and C1 is normal. The C1-C2 articulation is normal. The odontoid process is normal. The cervical thoracic junction is normal. Soft tissue window evaluation does not show evidence of epidural or prevertebral hematoma. Multilevel degenerative changes are noted disk space loss, postoperative changes and facet and uncovertebral arthropathy extending from C2-C3 to the C7- T1 level. Multilevel neural foraminal impingement is noted. Calcified carotid plaque is noted on the right side. The patient has had a left carotid endarterectomy. Bilateral thyroid nodules are noted. Impression: 1. Negative for fracture. 2. Reversal of the cervical curvature may reflect muscle spasm. 3. Postoperative and multilevel degenerative changes are noted. 4. See above report for additional findings. Results called and discussed with Eagle APODACA on 09/22/2017 at 10:40. Chest X-Ray 09/22/17 09:35 Impression: 1. Chest negative for acute cardiopulmonary abnormality. 2. See above report for additional findings. Head CT 09/22/17 09:35 Impression: 1. Elderly brain with atrophy and probable white matter small vessel disease. 2. Negative for intracranial hemorrhage. CT Cervical Spine Without Contrast History: Trauma. Technique: Multislice helical CT through the cervical spine without contrast from the skull base to T1. Soft tissue and bone evaluation is performed. Sagittal and coronal reconstructions are obtained and reviewed. Dose reduction techniques were utilized. Findings: There is mild reversal the normal cervical curvature. Postoperative changes of anterior cervical fusion are seen extending from C5 to C7. The hardware appears intact.. No fracture or dislocation is identified. The relationship between skull base and C1 is normal. The C1-C2 articulation is normal. The odontoid process is normal. The cervical thoracic junction is normal. Soft tissue window evaluation does not show evidence of epidural or prevertebral hematoma. Multilevel degenerative changes are noted disk space loss, postoperative changes and facet and uncovertebral arthropathy extending from C2-C3 to the C7- T1 level. Multilevel neural foraminal impingement is noted. Calcified carotid plaque is noted on the right side. The patient has had a left carotid endarterectomy. Bilateral thyroid nodules are noted. Impression: 1. Negative for fracture. 2. Reversal of the cervical curvature may reflect muscle spasm. 3. Postoperative and multilevel degenerative changes are noted. 4. See above report for additional findings. Results called and discussed with Eagle APODACA on 09/22/2017 at 10:40. - History Smoking Status: Former smoker - Objective Vital Signs: Initial Vital Signs Temperature (C) 98.6 F 09/22/17 09:08 Heart Rate 72 09/22/17 09:08 Respiratory Rate 16 09/22/17 09:08 Blood Pressure 144/74 H 09/22/17 09:08 O2 Sat (%) 85 L 09/22/17 09:08 O2 Delivery Mode Room Air O2 (L/minute) 2 Allergies/Adverse Reactions: No Known Allergies Allergy (Verified 08/17/17 15:53) Home Medications: Medication Instructions Recorded Pantoprazole Sodium [Protonix 40mg 40 mg PO DAILY 04/25/15 (*)] Clopidogrel Bisulfate [Plavix (*)] 75 mg PO HS 08/17/17 metFORMIN HCL [Glucophage 500 mg 500 mg PO DAILY 08/17/17 (*)] Cholecalciferol Vit D3 [Vitamin D3 1,000 units PO DAILY 09/17/17 (*)] Lactase [Lactase 3000 Unit (*)] 3,000 unit PO DAILY PRN 09/17/17 Melatonin [Melatonin 3 MG (*)] 3 mg PO HS PRN 09/17/17 Metoprolol Succinate Xr [Toprol Xl 50 mg PO HS 09/17/17 50 mg (*)] Multivitamins [Multivitamin (*)] 1 each PO DAILY 09/17/17 metFORMIN HCL [Glucophage 1000 mg] 1,000 mg PO DAILY18 09/17/17 Aspirin [Aspirin 325 mg (*)] 325 mg PO HS 09/22/17 Atorvastatin Calcium 80 mg PO HS 09/22/17 Calcium Carbonate/Vitamin D3 1 tab PO DAILY 09/22/17 [Calcium 1,000 + D3 Caplet] Laboratory Results: Laboratory Results 09/22/17 09:00 09/22/17 09:00 09/22/17 09/22/17 09/22/17 09:50 09:00 09:00 WBC 9.21 10^3/uL 10^3/uL (3.80-9.50) RBC 3.23 10^6/uL L 10^6/uL (4.40-6.38) Hgb 10.7 g/dL L g/dL (13.7-17.5) Hct 30.2 % L % (40.0-51.0) MCV 93.5 fL fL (81.5-99.8) MCH 33.1 pg pg (27.9-34.1) MCHC 35.4 g/dL g/dL (32.4-36.7) RDW 14.7 % % (11.5-15.2) Plt Count 219 10^3/uL 10^3/uL (150-400) MPV 10.0 fL fL (8.7-11.7) Neut % (Auto) 49.2 % % (39.3-74.2) Lymph % (Auto) 41.4 % % (15.0-45.0) [place] % (Auto) 8.0 % % (4.5-13.0) Eos % (Auto) 0.9 % % (0.6-7.6) Baso % (Auto) 0.3 % % (0.3-1.7) Nucleat RBC Rel Count 0.0 % % (0.0-0.2) Absolute Neuts (auto) 4.53 10^3/uL 10^3/uL (1.70-6.50) Absolute Lymphs (auto) 3.81 10^3/uL H 10^3/uL (1.00-3.00) Absolute Monos (auto) 0.74 10^3/uL 10^3/uL (0.30-0.80) Absolute Eos (auto) 0.08 10^3/uL 10^3/uL (0.03-0.40) Absolute Basos (auto) 0.03 10^3/uL 10^3/uL (0.02-0.10) Absolute Nucleated RBC 0.00 10^3/uL 10^3/uL (0-0.01) Immature Gran % 0.2 % % (0.0-1.1) Immature Gran # 0.02 10^3/uL 10^3/uL (0.00-0.10) Sodium 139 mEq/L mEq/L (135-145) Potassium 3.8 mEq/L mEq/L (3.3-5.0) Chloride 104 mEq/L mEq/L (97-110) Carbon Dioxide 27 mEq/l mEq/l (22-31) Anion Gap 8 mEq/L mEq/L (8-16) BUN 19 mg/dL mg/dL (7-23) Creatinine 1.0 mg/dL mg/dL (0.7-1.3) Estimated GFR > 60 Glucose 231 mg/dL H mg/dL (70-100) Calcium 9.9 mg/dL mg/dL (8.5-10.4) Total Bilirubin 1.0 mg/dL mg/dL (0.1-1.4) AST 22 IU/L IU/L (17-59) ALT 28 IU/L IU/L (21-72) Alkaline Phosphatase 63 IU/L IU/L (38-126) POC Troponin I 0.01 ng/mL ng/mL (0.00-0.08) Total Protein 6.4 g/dL g/dL (6.3-8.2) Albumin 3.8 g/dL g/dL (3.5-5.0) Point of Care Test Results: Chemistry 09/22/17 09:50 POC Troponin I 0.01 ng/mL ng/mL (0.00-0.08) Departure - Departure Disposition: [facility] Inpatient Acute Clinical Impression: Orthostasis Syncope Qualifiers: Syncope type: unspecified Qualified Code(s): R55 - Syncope and collapse Condition: Good Referrals: Patient,NotPresent [Unknown] - As per Instructions
[2017-09-22] MEDS ORDERED: NS 500 ML IV ONE (11:21)
[2017-09-22] MEDS ORDERED: ONDANSETRON 4 MG/2 ML VIAL IVP PRN (11:35)
[2017-09-22] MEDS ORDERED: ONDANSETRON DISINTEGRATING 4 MG TAB PO PRN (11:35)
[2017-09-22] MEDS ORDERED: MELATONIN 3 MG TAB PO PRN (13:15)
[2017-09-22] MEDS ORDERED: LACTASE 3,000 UNIT TAB PO PRN (13:15)
--- NOTE | 2017-09-22 14:30 | ASMTLACE ---
SHIMAE Acuity / Level of Answers: Yes Care: Did the patient have an inpatient admission? Comorbidities - select Answers: Any tumor (including all that apply lymphoma or leukemia) Cerebrovascular disease (CVA, TIA, aneurysms, vasc ular dementia) Coronary Artery Disease Diabetes (uncontrolled or controlled) History of falls Moderate or severe liver or renal disease Other Notes: Carotid stenosis # of Emergency department Answers: 3-4 visits in the last 6 months Score: 20 Date Signed: 09/22/2017 02:29 PM Electronically Signed By:Mari James RN
--- NOTE | 2017-09-22 14:36 | ASMTCMCOM ---
CM Note CM Note Notes: Pt presented to the Emergency Department s/p a syncopal episode this morning. Pt's history is extensive and includes a recent TIA, diabetes, carotid stenosis, chronic kidney disease, hyperlipidemia, coronary artery disease, prostate cancer. Pt is and lives with his . The pt has had four recent visits to [facility]. Last admission the pt was discharged home with [facility] (PT/OT services). Pt was admitted today for further observation and treatment. Discharge needs remain unclear at this time. CM will continue to follow. Current Discharge Plan: To be determined Date Signed: 09/22/2017 02:35 PM Electronically Signed By:Mari James RN
[2017-09-22] MEDS: ACETAMINOPHEN 325 MG TAB PO PRN ×2 (14:49→15:57)
--- NOTE | 2017-09-22 15:51 | PDGENHP ---
History and Physical - Chief Complaint Acute dizziness - History of Present Illness Primary product development actuary: Dr. Miles Primary oncologist: Dr. Rapp Primary surgeon: Dr. Hitchcock Primary restaurant hourly team member: Dr. Osborne HPI: 82-year-old male presenting with acute dizziness characterized as a "faint " sensation with associated brief loss of consciousness with onset of symptoms while he was engaging in a hot shower on the morning of presentation. The patient reports that after returning home from his most recent hospitalization last night, he was feeling particularly fatigue. He reports that he slept very deeply and very well. On the morning of presentation, the patient awoke, shaved in his bathroom, and then took a hot shower. At approximately 8:30 a.m. , the patient began experiencing dizziness while in the shower, and then slowly slid down the shower very briefly losing consciousness, and then awakening sitting in a crouching position. He did not experience any trauma. He had otherwise taken all of his home medications on the evening prior, but he is unclear as to the exact dosages. He denies any chest symptoms during the episode; he had yet to reconnect his outpatient 30 day monitor. History Information - Allergies/Home Medication List Allergies/Adverse Reactions: No Known Allergies Allergy (Verified 08/17/17 15:53) Home Medications: Pantoprazole Sodium [Protonix 40mg (*)] 40 mg PO DAILY 04/25/15 [Last Taken 10/02] Clopidogrel Bisulfate [Plavix (*)] 75 mg PO HS 08/17/17 [Last Taken 09/21/17] metFORMIN HCL [Glucophage 500 mg (*)] 500 mg PO DAILY 08/17/17 [Last Taken 09/21] Cholecalciferol Vit D3 [Vitamin D3 (*)] 1,000 units PO DAILY 09/17/17 [Last Taken 09/21/17] Lactase [Lactase 3000 Unit (*)] 3,000 unit PO DAILY PRN 09/17/17 [Last Taken 10/02] Melatonin [Melatonin 3 MG (*)] 3 mg PO HS PRN 09/17/17 [Last Taken 09/21/17] Metoprolol Succinate Xr [Toprol Xl 50 mg (*)] 50 mg PO HS 09/17/17 [Last Taken 09/21/17] Multivitamins [Multivitamin (*)] 1 each PO DAILY 09/17/17 [Last Taken 09/21/17] metFORMIN HCL [Glucophage 1000 mg] 1,000 mg PO DAILY18 09/17/17 [Last Taken 10/02] Aspirin [Aspirin 325 mg (*)] 325 mg PO HS 09/22/17 [Last Taken 09/21/17] Atorvastatin Calcium 80 mg PO HS 09/22/17 [Last Taken 09/21/17] Calcium Carbonate/Vitamin D3 [Calcium 1,000 + D3 Caplet] 1 tab PO DAILY [Last Taken 09/21/17] I have personally reviewed and updated: family history, medical history, social history, surgical history - Past Medical History Additional medical history: Carotid stenosis. Coronary artery disease. Chronic kidney disease stage 3. Diabetes mellitus. Hypertension. Benign pancreatic mass. Prostate cancer - Surgical History Additional surgical history: Recent CEA. Prostatectomy 25 years - Family History Additional family history: Father with CVA - Social History Smoking Status: Former smoker Alcohol Use: Other (Patient has wine nightly, but he did not have any alcohol on the evening prior to presentation) Drug Use: None Additional social history: Independent in his ADLs, lives with Review of Systems Review of Systems: ROS: 10pt was reviewed & negative except for what was stated in HPI & below Neurological: Reports: other (Dizziness, brief loss of consciousness) Physical Exam Physical Exam: Temp Pulse Resp BP Pulse Ox 36.9 C 98 14 169/82 H 95 09/22/17 15:25 09/22/17 15:25 09/22/17 15:25 09/22/17 15:25 09/22/17 15:25 Constitutional: no apparent distress, appears nourished, not in pain Eyes: PERRL, anicteric sclera, EOMI Ears, Nose, Mouth, Throat: moist mucous membranes, hearing normal, ears appear normal, no oral mucosal ulcers Cardiovascular: regular rate and rhythym, no murmur, rub, or gallop, No edema Respiratory: no respiratory distress, no rales or rhonchi, clear to auscultation Gastrointestinal: normoactive bowel sounds, soft, non-tender abdomen, no palpable masses Skin: warm, No abrasion Neurologic: AAOx3, sensation intact bilaterally, No weakness Psychiatric: interacting appropriately, not anxious, not encephalopathic, thought process linear Lab Data & Imaging Review 09/22/17 09:00 09/22/17 09:00 WBC 9.21 10^3/uL (3.80-9.50) 09/22/17 09:00 RBC 3.23 10^6/uL (4.40-6.38) L 09/22/17 09:00 Hgb 10.7 g/dL (13.7-17.5) L 09/22/17 09:00 Hct 30.2 % (40.0-51.0) L 09/22/17 09:00 MCV 93.5 fL (81.5-99.8) 09/22/17 09:00 MCH 33.1 pg (27.9-34.1) 09/22/17 09:00 MCHC 35.4 g/dL (32.4-36.7) 09/22/17 09:00 RDW 14.7 % (11.5-15.2) 09/22/17 09:00 Plt Count 219 10^3/uL (150-400) 09/22/17 09:00 MPV 10.0 fL (8.7-11.7) 09/22/17 09:00 Neut % (Auto) 49.2 % (39.3-74.2) 09/22/17 09:00 Lymph % (Auto) 41.4 % (15.0-45.0) 09/22/17 09:00 [place] % (Auto) 8.0 % (4.5-13.0) 09/22/17 09:00 Eos % (Auto) 0.9 % (0.6-7.6) 09/22/17 09:00 Baso % (Auto) 0.3 % (0.3-1.7) 09/22/17 09:00 Nucleat RBC Rel Count 0.0 % (0.0-0.2) 09/22/17 09:00 Absolute Neuts (auto) 4.53 10^3/uL (1.70-6.50) 09/22/17 09:00 Absolute Lymphs (auto) 3.81 10^3/uL (1.00-3.00) H 09/22/17 09:00 Absolute Monos (auto) 0.74 10^3/uL (0.30-0.80) 09/22/17 09:00 Absolute Eos (auto) 0.08 10^3/uL (0.03-0.40) 09/22/17 09:00 Absolute Basos (auto) 0.03 10^3/uL (0.02-0.10) 09/22/17 09:00 Absolute Nucleated RBC 0.00 10^3/uL (0-0.01) 09/22/17 09:00 Immature Gran % 0.2 % (0.0-1.1) 09/22/17 09:00 Immature Gran # 0.02 10^3/uL (0.00-0.10) 09/22/17 09:00 Sodium 139 mEq/L (135-145) 09/22/17 09:00 Potassium 3.8 mEq/L (3.3-5.0) 09/22/17 09:00 Chloride 104 mEq/L (97-110) 09/22/17 09:00 Carbon Dioxide 27 mEq/l (22-31) 09/22/17 09:00 Anion Gap 8 mEq/L (8-16) 09/22/17 09:00 BUN 19 mg/dL (7-23) 09/22/17 09:00 Creatinine 1.0 mg/dL (0.7-1.3) 09/22/17 09:00 Estimated GFR > 60 09/22/17 09:00 Glucose 231 mg/dL (70-100) H 09/22/17 09:00 Calcium 9.9 mg/dL (8.5-10.4) 09/22/17 09:00 Total Bilirubin 1.0 mg/dL (0.1-1.4) 09/22/17 09:00 AST 22 IU/L (17-59) 09/22/17 09:00 ALT 28 IU/L (21-72) 09/22/17 09:00 Alkaline Phosphatase 63 IU/L (38-126) 09/22/17 09:00 POC Troponin I 0.01 ng/mL (0.00-0.08) 09/22/17 09:50 Troponin I < 0.012 ng/mL (0.000-0.034) 09/22/17 16:00 Total Protein 6.4 g/dL (6.3-8.2) 09/22/17 09:00 Albumin 3.8 g/dL (3.5-5.0) 09/22/17 09:00 Visualized and Interpreted Chest x-ray results: Yes Chest X-Ray results: no infiltrate Visualized and Interpreted EKG results: Yes Assessment & Plan Assessment: 82-year-old male presents with acute syncope Plan: 1. Syncope. Acute, new problem this provider, further workup indicated. Most likely etiology is peripheral vasodilation in the setting of hot shower -that being said, the patient is currently being evaluated by his outpatient cardiology provider for tachyarrhythmia with 30 day event monitor -seeing as the patient's event monitor was not placed during the event, and he has most recently been hospitalized for TIA, and is prudent to monitor him overnight on telemetry to ensure no recurrence of any pervasive arrhythmias, and then have him connective 30 day event monitor tomorrow upon discharge if no arrhythmias are present -his orthostatic vital signs in the emergency department were positive, but the patient experienced no syncopal symptoms while these vitals were being obtained , indicating that he does not currently have clinically relevant orthostasis -will monitor his blood pressure closely and avoid over medicating his chronic hypertension, as this could certainly contribute to future syncopal episodes 2. Hypertension. Continue home medications, avoid over medicating 3. Coronary artery disease and carotid stenosis. Reviewed outside records including 09/21/2017 neurology consultation note by Dr. Polo Kapadia, recommending 30 day event monitor after discharge, for marking on the patient's most recent CEA for left ICA stenosis -continue Plavix 4. Chronic kidney disease stage 3. Creatinine currently at baseline, monitor Diet. Regular Prophylaxis. Moderate risk patient, Lovenox 40 Code. Full Disposition. Anticipated discharge is 09/23, pending further workup as outlined above. I have discussed patient's presentation with Eagle Duncan, emergency department provider, he and I both agree the patient warrants observation overnight given his possibility of pathological arrhythmia.
[2017-09-22] MEDS: NS W/ 20 KCl/L 1,000 ML IV SCH (15:52)
[2017-09-22] MEDS ORDERED: CLOPIDOGREL BISULFATE 75 MG TAB PO SCH (18:00)
[2017-09-22] MEDS ORDERED: ASPIRIN 325 MG TAB PO SCH (18:00)
[2017-09-22] MEDS ORDERED: metFORMIN HCL 500 MG TAB PO SCH (18:00)
[2017-09-22] MEDS ORDERED: ATORVASTATIN CALCIUM 40 MG TAB PO SCH (18:00)
[2017-09-22] MEDS ORDERED: METOPROLOL SUCCINATE XR 50 MG TAB PO SCH (18:00)
[2017-09-23] MEDS: NS W/ 20 KCl/L 1,000 ML IV SCH (04:59)
[2017-09-23] MEDS: ACETAMINOPHEN 325 MG TAB PO PRN (08:54)
[2017-09-23] MEDS ORDERED: metFORMIN HCL 500 MG TAB PO SCH (09:00)
[2017-09-23] MEDS ORDERED: MULTIVITAMINS 1 EACH TAB PO SCH (09:00)
[2017-09-23] MEDS ORDERED: CALCIUM CARB W/VIT D 500 MG TAB PO SCH (09:00)
[2017-09-23] MEDS ORDERED: PANTOPRAZOLE SODIUM 40 MG TAB PO SCH (09:00)
[2017-09-23] MEDS ORDERED: CHOLECALCIFEROL VIT D3 1,000 UNITS TAB PO SCH (09:00)
[2017-09-23] MEDS ORDERED: ENOXAPARIN 40 MG/0.4 ML SYR SC SCH (09:00)
[2017-09-23] MEDS ORDERED: NS 1,000 ML IV SCH (12:00)
[2017-09-23 12:34] VITALS: BP 151/65
--- NOTE | 2017-09-23 13:20 | PDIAF ---
- Diagnosis Diagnosis: Syncope, recent L CEA/TIA Code Status: Full Code - Medication Management Discharge Medications: Medications to Continue on Transfer Pantoprazole Sodium [Protonix 40mg (*)] 40 mg PO DAILY 04/25/15 [Last Taken 10/02] Clopidogrel Bisulfate [Plavix (*)] 75 mg PO HS 08/17/17 [Last Taken 09/21/17] metFORMIN HCL [Glucophage 500 mg (*)] 500 mg PO DAILY 08/17/17 [Last Taken 09/21] Cholecalciferol Vit D3 [Vitamin D3 (*)] 1,000 units PO DAILY 09/17/17 [Last Taken 09/21/17] Lactase [Lactase 3000 Unit (*)] 3,000 unit PO DAILY PRN 09/17/17 [Last Taken 10/02] Melatonin [Melatonin 3 MG (*)] 3 mg PO HS PRN 09/17/17 [Last Taken 09/21/17] Metoprolol Succinate Xr [Toprol Xl 50 mg (*)] 50 mg PO HS 09/17/17 [Last Taken 09/21/17] Multivitamins [Multivitamin (*)] 1 each PO DAILY 09/17/17 [Last Taken 09/21/17] metFORMIN HCL [Glucophage 1000 mg] 1,000 mg PO DAILY18 09/17/17 [Last Taken 10/02] Aspirin [Aspirin 325 mg (*)] 325 mg PO HS 09/22/17 [Last Taken 09/21/17] Atorvastatin Calcium 80 mg PO HS 09/22/17 [Last Taken 09/21/17] Calcium Carbonate/Vitamin D3 [Calcium 1,000 + D3 Caplet] 1 tab PO DAILY [Last Taken 09/21/17] Losartan Potassium 25 mg PO DAILY #30 tablet 09/23/17 [Last Taken Unknown] Detention Antibiotics: NA Discharge Medications: Refer to the Discharge Home Medication list for PRN reason. PICC Care - Routine: N/A - Orders Services needed: Home Care, Registered Nurse, Physical Therapy Home Care Face to Face: I certify that this patient was under my care and that I had the required [id number] encounter meeting the encounter requirements on the discharge day. My findings support the fact that the patient is homebound as defined in Home Care Face to Face Continued: CMS Chapter 7 Medicare Benefits Manual 30.1.1 , The condition of the patient is such that there exists a normal inability to leave home and consequently, leaving home would require a considerable and taxing effort. Isolation Type: None Oxygen: NA Diet Recommendation: cardiac -low fat low salt Weigh Patient: weekly [place]: Not applicable Activity/Weight Bearing Restrictions: as tolerated Additional Instructions: please check blood pressure during home visits and keep a log for patient that he can take to Dr. Miles's office in follow-up - Follow Up Care Current Providers and Referrals: Patient,NotPresent [Unknown] - As per Instructions Cong Hitchcock MD [Medical Doctor] - (follow-up for routine, post-surgical care as scheduled) Varun Miles MD [Medical Doctor] - (please follow-up after equipment monitor phototypesetting results available)
--- NOTE | 2017-09-23 13:24 | ASMTDCNOTE ---
Case Management Discharge Discharge Order Complete? Answers: Yes Patient to Obtain Answers: via Family Medications Transportation Arranged Answers: Family/Friends EMTALA Complete Answers: No Case Management Transport Answers: No Form Complete Faxed Final Orders Answers: Yes Agency/Facility Transfer Answers: Yes Report Printed & Faxed to Receiving Agency Family Notified Answers: Yes Discharge Comments Notes: CM spoke to Dr. Aiken regarding d/c POC. CM met w/ pt and for dispo planning. PT is recommending HC. Pts would like CM to make a referral to the HC agency he used the last time he was at the hospital; [facility]. Referral and d/c orders sent to [facility]. [facility] is able to accept. CM available for changes. Plan: Malia HUNT, RN Date Signed: 09/23/2017 01:24 PM Electronically Signed By:GHAZALA Scruggs
--- NOTE | 2017-09-23 13:26 | PDDCSUM ---
Discharge Summary Discharge Summary: DISCHARGE SUMMARY FOLLOW-UP ITEMS: Please follow up with Dr. Hitchcock is office as scheduled Please resume cardiac rn DATE OF ADMISSION: September 22 2017 DATE OF DISCHARGE: 09/23/2017 DISCHARGE DIAGNOSES: 1. Acute syncope 2. Recent CEA and TIA 3. Chronic hypertension CONSULTATIONS: General surgery PROCEDURES / IMAGING: Ultrasound of the left neck demonstrating no hematoma, soft tissue edema Telemetry monitoring demonstrating occasional PVCs, occasional PACs, no atrial fibrillation CHIEF COMPLAINT: Acute syncope SUBJECTIVE: Patient is feeling well, he has been able to shower without any symptoms PHYSICAL EXAM ON DISCHARGE: Systolic blood pressure is 140-170, heart rate 80, afebrile overnight, satting well on room air, alert awake oriented x3, no apparent distress, pain level 0/10 , left neck is firm, very minimally tender, no fluctuance, no erythema at the surgical site, full range of motion of his neck LABS ON DISCHARGE: Creatinine 0.7, hemoglobin 10.7, potassium 4.1, troponin negative x2 HOSPITAL COURSE BY PROBLEM: The patient presented with acute syncope, most likely secondary to a vasovagal event as well as heat mediated peripheral vasodilation, while the patient was taking his 1st hot shower upon returning home after a recent CEA surgery. I suspect that the patient experienced peripheral vasodilation as he was standing in the hot shower, and he may have experienced some concomitant vasovagal event in the setting of pressure on his left carotid bulb from soft tissue edema following his left-sided CEA surgery. Ultrasound demonstrated no evidence of hematoma, and no further surgical intervention is indicated. He underwent orthostatic vital signs which were initially positive on presentation, by numbers, but the patient did not have any clinical recurrence of his symptoms. He received IV fluids and repeat orthostatic vital signs were negative. His systolic blood pressure has been running greater than 140, and the patient was recently discharged off of his home ARB. We have re-initiated that medication and recommend home blood pressure monitoring prior to follow up with Cardiology. We also recommend resumption of his home cardiac rn, which had been ordered to evaluate for any cardiac arrhythmias. He demonstrated no arrhythmias on telemetry during this hospitalization. He had an echocardiogram last week which demonstrated only mild aortic insufficiency, diastolic dysfunction, and no other structural abnormalities. His recent carotid vascular imaging demonstrated 40% stenosis on the right, 70% stenosis on the left, which received a left-sided CEA by Dr. Hitchcock, the patient will follow up with Dr. Hitchcock for routine postsurgical follow-up after this hospitalization. Given the ongoing mild degree of stenosis on the right, the patient will remain on vascular protective medications. DISCHARGE MEDICATIONS: Please see official discharge medication reconciliation sheet in chart , losartan 25 mg restart, continue other home medications. DISCHARGE INSTRUCTIONS: Please follow up with Dr. Hitchcock as scheduled, please follow up with Dr. Miles after cardiac rn result available.
--- NOTE | 2017-09-23 13:27 | ASDISCHSUM ---
Discharge Information Plan Status:Home with Home Health Medically Cleared to Leave:09/23/2017 Discharge Date:09/23/2017 CM D/C Disposition: ADT D/C Disposition:Home Health Service Projected Discharge Date:09/23/2017 11:00 AM Transportation at D/C: Discharge Delay Reason: Follow-Up Date:09/23/2017 11:00 AM Discharge Slot: Final Diagnosis: Placement Information Referral Type:*Home Health Care Services Referral ID:[id number] Provider Name:[facility] (formerly [facility]) Address 1:[address] [place] [address] Address 2: City:[place] Selection Factors: State:[place] Patient Contact Information Contact Name:TANI Relationship: Address:[facility] [facility] Work Phone: City:[place] Alternate Phone: State/Zip Code:[place] [address] Email: Financial Information Financial Class:Medicare Primary Plan Desc:MEDICARE OUTPATIENT Primary Plan Number:[id number] Secondary Plan Desc: Secondary Plan Number:[id number] Assessment Information LACE LACE Acuity / Level of Answers: Yes Care: Did the patient have an inpatient admission? Comorbidities - select Answers: Any tumor (including all that apply lymphoma or leukemia) Cerebrovascular disease (CVA, TIA, aneurysms, vasc ular dementia) Coronary Artery Disease Diabetes (uncontrolled or controlled) History of falls Moderate or severe liver or renal disease Other Notes: Carotid stenosis # of Emergency department Answers: 3-4 visits in the last 6 months Score: 20 Date Signed: 09/22/2017 02:29 PM Electronically Signed By:Mari James RN [facility] Progress Note CM Note CM Note Notes: Pt presented to the Emergency Department s/p a syncopal episode this morning. Pt's history is extensive and includes a recent TIA, diabetes, carotid stenosis, chronic kidney disease, hyperlipidemia, coronary artery disease, prostate cancer. Pt is and lives with his . The pt has had four recent visits to [facility]. Last admission the pt was discharged home with [facility] (PT/OT services). Pt was admitted today for further observation and treatment. Discharge needs remain unclear at this time. CM will continue to follow. Current Discharge Plan: To be determined Date Signed: 09/22/2017 02:35 PM Electronically Signed By:Mari James RN Case Management Discharge Plan Note Case Management Discharge Discharge Order Complete? Answers: Yes Patient to Obtain Answers: via Family Medications Transportation Arranged Answers: Family/Friends EMTALA Complete Answers: No Case Management Transport Answers: No Form Complete Faxed Final Orders Answers: Yes Agency/Facility Transfer Answers: Yes Report Printed & Faxed to Receiving Agency Family Notified Answers: Yes Discharge Comments Notes: CM spoke to Dr. Aiken regarding d/c POC. CM met w/ pt and for dispo planning. PT is recommending HC. Pts would like CM to make a referral to the HC agency he used the last time he was at the hospital; [facility]. Referral and d/c orders sent to [facility]. [facility]. CM available for changes. Plan: Юлия; GILBERT RN Date Signed: 09/23/2017 01:24 PM Electronically Signed By:GHAZALA Scruggs Intervention Information Intervention Type:*ROJAS-Signed Date of Service:09/23/2017 11:36 AM Patient Type:Observation Staff Member:Anat Moncada Hours: Discipline: Severity: Comment:
== END 2017-09-23 14:14 | disposition home health service (06) ==
LOC: EDUNIT# → F3E 12:44
PROVIDERS: ADMIT Internal Medicine; ATTEND Internal Medicine
DX: R55 Syncope and collapse (principal); R60.9 Edema, unspecified; I65.22 Occlusion and stenosis of left carotid artery; I25.10 Atherosclerotic heart disease of native coronary artery without angina pectoris; I12.9 Hypertensive chronic kidney disease with stage 1 through stage 4 chronic kidney disease, or unspecified chronic kidney disease; N18.3 Chronic kidney disease, stage 3 (moderate); E11.59 Type 2 diabetes mellitus with other circulatory complications; Z85.46 Personal history of malignant neoplasm of prostate; Z90.79 Acquired absence of other genital organ(s); Z79.01 Long term (current) use of anticoagulants
CPT/HCPCS: 70450; 71045; 72125; 76536; 93005; 97161; G0378; G8978; G8979; J1650; 84484-PO

== ENCOUNTER → 2017-09-26 | Outpatient (CLI) | payer OTHER ==
[~2017-09-26] MED LIST: IOPAMIDOL (ISOVUE 370) 100 ML BTL IV ONE
== END ==
LOC: FIMAGING 15:02
PROVIDERS: ATTEND Surgery
DX: I65.21 Occlusion and stenosis of right carotid artery (principal); R13.10 Dysphagia, unspecified; R93.8 Abnormal findings on diagnostic imaging of other specified body structures; Z98.890 Other specified postprocedural states
CPT/HCPCS: 70498; Q9967

== ENCOUNTER 2017-11-03 | Emergency (ER) | payer OTHER | END 2017-11-03 15:37 | disposition home or self-care (01) ==

== ENCOUNTER 2017-11-13 08:15 | Inpatient (IN) | payer OTHER ==
[2017-11-15] MEDS ORDERED: PHENYLEPHRINE HCL 50 MG in NS 250 ML IV ONE (06:00)
[2017-11-15] MEDS ORDERED: AMINOCAPROIC ACID 5 GM/20 ML VIAL IV ONE (06:00)
[2017-11-15] MEDS ORDERED: MANNITOL 25% 12.5 GM/50 ML VIAL IVP ONE (06:00)
[2017-11-15] MEDS ORDERED: SODIUM BICARBONATE 20 MEQ, LIDOCAINE 1% 10 ML in NORMOSOL-R 1,000 ML MISC ONE (06:00)
[2017-11-15] MEDS ORDERED: INSULIN REGULAR HUMAN 100 UNIT in NS 100 ML IV ONE (06:00)
[2017-11-15] MEDS ORDERED: VERAPAMIL 5 MG, NITROGLYCERIN 2.5 MG, HEPARIN 500 UNIT, SODIUM BICARBONATE 0.2 MEQ in L... MISC ONE (06:00)
[2017-11-15] MEDS ORDERED: CITRATE DEXTROSE SOLN 500 ML BAG MISC ONE (06:13)
[2017-11-15] MEDS ORDERED: ceFAZolin 2 GM/DEXTROSE 100 ML IV ONE (06:13)
[2017-11-15] MEDS ORDERED: niCARdipine/NACL 200 ML IV ONE (06:13)
[2017-11-15] MEDS ORDERED: MUPIROCIN 2% 22 GM OINT NS ONE (06:13)
[2017-11-15] MEDS ORDERED: LIDOCAINE 1% 5 ML SDV ID PRN (06:13)
--- NOTE | 2017-11-15 06:27 | PDHPUP ---
History & Physical Update H&P update statement: This history and physical update is based on an assessment of the patient which was completed after admission or registration (within 24 hours), but prior to the surgery/procedure. H&P update: H&P reviewed & patient examined, changes noted (AUC deflated and ruiz placed by urology)
[2017-11-15] MEDS ORDERED: CALCIUM CHLORIDE 1 GM/10 ML INJ ONE ×3 (06:40→06:42)
[2017-11-15] MEDS ORDERED: PROTAMINE SULFATE 50 MG/5 ML VIAL IVP ONE (06:40)
[2017-11-15] MEDS ORDERED: MILRINONE/DEXTROSE/100 ML BAG IV ONE (06:40)
[2017-11-15] MEDS ORDERED: LR 1,000 ML IV ONE (06:41)
[2017-11-15] MEDS ORDERED: NA BICARBONATE 50 MEQ/50 ML VIAL ONE (06:41)
[2017-11-15] MEDS ORDERED: AMIODARONE HCL 150 MG/3 ML VIAL ONE ×2 (06:41→06:43)
[2017-11-15] MEDS ORDERED: niCARdipine/NACL/200 ML BAG IV ONE ×2 (06:41→18:36)
[2017-11-15] MEDS ORDERED: ceFAZolin 1 GM VIAL ONE (06:41)
[2017-11-15] MEDS ORDERED: ADENOSINE 6 MG/2 ML VIAL ONE (06:41)
[2017-11-15] MEDS ORDERED: HEPARIN 10,000 UNIT/10 ML MDV (1,000 UNIT/ML) ONE ×2 (06:41→06:42)
[2017-11-15] MEDS ORDERED: DOPamine/DEXTROSE 400 MG/250 ML BAG IV ONE (06:41)
[2017-11-15] MEDS ORDERED: ALBUMIN 5% 250 ML BOTTLE IV ONE (06:42)
[2017-11-15] MEDS ORDERED: LIDOCAINE 2% 100 MG/5 ML SYR ONE (06:42)
[2017-11-15] MEDS ORDERED: CITRATE DEXTROSE SOLN 500 ML BAG ONE (06:42)
[2017-11-15] MEDS ORDERED: NITROGLYCERIN/D5W 50 MG/250 ML BOTTLE IV ONE (06:42)
[2017-11-15] MEDS ORDERED: MAGNESIUM SULFATE 1 GM/2 ML VIAL ONE (06:43)
[2017-11-15] MEDS ORDERED: methylPREDNISolone SOD SUCC 1 GM/8 ML VIAL ONE (06:43)
[2017-11-15] MEDS ORDERED: MIDAZOLAM 2 MG/2 ML VIAL IVP ONE (06:55)
--- NOTE | 2017-11-15 06:56 | PDANEPAE ---
ANE History of Present Illness cab ANE Past Medical History - Cardiovascular History Hx Hypertension: Yes Hx Arrhythmias: Yes Hx Chest Pain: No Hx Coronary Artery / Peripheral Vascular Disease: Yes Hx CHF / Valvular Disease: Yes Hx Palpitations: Yes Cardiovascular History Comment: Stents x 2 in 2012 - Pulmonary History Hx COPD: No Hx Asthma/Reactive Airway Disease: No Hx Oxygen in Use at Home: Yes O2 in Use at Home (L/minute): NOC O2 2L Hx Sleep Apnea: No Sleep Apnea Screening Result - Last Documented: Positive Pulmonary History Comment: LUNG NODULES BX - BENIGN. YEAR ROUND PND W/ ALLERGIES. STILL HAS THROAT IRRITATION FROM FOLLOWING CEA PROCEDURE - Neurologic History Hx Cerebrovascular Accident: Yes Hx Seizures: No Hx Dementia: No Neurologic History Comment: TIA on 09-17-17 - Endocrine History Hx Diabetes: Yes Hypothyroid: No Hyperthyroid: No - Renal History Hx Renal Disorders: Yes Renal History Comment: AUS IMPLANTED ARTIFICIAL URINARY SPHINCTER DEVICE - Liver History Hx Hepatic Disorders: No - Neurological & Psychiatric Hx Hx Neurological and Psychiatric Disorders: No - Cancer History Hx Cancer: No Cancer History Comment: MOHS SURG FACE/NECK - Congenital Disorder History Hx Congenital Disorders: No - GI History Hx Gastrointestinal Disorders: Yes Gastrointestinal History Comment: ACID REFLUX - Other Health History Other Health History: NEG - Chronic Pain History Chronic Pain: No - Surgical History Prior Surgeries: ANGIOGRAM 10/2017. PLACEMENT AUS IMPLANT URINARY- 2016. ANGIOGRAM W/STENT 2012. CAROTID ENDARTERECTOMY 09/2017. PROSTATECTOMY. CERVICAL FUSION 2015. PULMONARY NODULES BX 05/2015. ULNAR TRANSLOCATION L ARM. TONSILLECTOMY. L MIDDLE FINGER. L ELBOW BONE SPURS. L KNEE SCOPE. HERNIA ANE Review of Systems Review of Systems: - Exercise capacity Exercise capacity: <4 METS METS (RN): 4 METS ANE Patient History - Allergies Allergies/Adverse Reactions: No Known Allergies Allergy (Verified 11/15/17 06:45) - Home Medications Home medications: home medication list seen and reviewed Home Medications: Pantoprazole Sodium [Protonix 40mg (*)] 40 mg PO DAILY 04/25/15 [Last Taken ] Clopidogrel Bisulfate [Plavix (*)] 75 mg PO DAILY18 08/17/17 [Last Taken ] metFORMIN HCL [Glucophage 500 mg (*)] 500 mg PO DAILY@08 08/17/17 [Last Taken ] Aspirin [Aspirin 325 mg (*)] 325 mg PO DAILY18 09/22/17 [Last Taken 11/14/17] Atorvastatin Calcium 80 mg PO DAILY18 09/22/17 [Last Taken 11/14/17] Metoprolol Succinate 25 mg PO DAILY@18 10/29/17 [Last Taken 11/14/17] Calcium Carbonate/Vitamin D3 [Calcium 600-Vit D3 400 Tablet] 1 each PO DAILY [Last Taken 11/14/17] Cholecalciferol Vit D3 [Vitamin D3 (*)] 1,000 units PO DAILY 11/07/17 [Last Taken 11/14/17] Multivitamins [Multivitamin (*)] 1 each PO DAILY 11/07/17 [Last Taken 11/14/17] metFORMIN HCL [Glucophage 500 mg (*)] 1,000 mg PO DAILY18 11/07/17 [Last Taken 11/13/17] - NPO status NPO Status: no food or drink >8 hours NPO Since - Liquids (Date): 11/14/17 NPO Since - Liquids (Time): 20:00 NPO Since - Solids (Date): 11/14/17 NPO Since - Solids (Time): 20:00 - Smoking Hx Smoking Status: Former smoker ANE Labs/Vital Signs - Vital Signs Blood Pressure: 145/69 Heart Rate: 75 Respiratory Rate: 16 O2 Sat (%): 96 Height: 177.8 cm Weight: 70.307 kg ANE Physical Exam - Airway Mallampati Score: Class 2 Mouth exam: normal dental/mouth exam - Pulmonary Pulmonary: no respiratory distress - Cardiovascular Cardiovascular: regular rate and rhythym - ASA Status ASA Status: III ANE Anesthesia Plan Anesthesia Plan: general endotracheal anesthesia Lines/Monitors: arterial line, central line
[2017-11-15] MEDS ORDERED: PAPAVERINE HCL 60 MG/2 ML SDV ONE (07:01)
[2017-11-15] MEDS ORDERED: MINERAL OIL 10 ML VIAL ONE (07:01)
[2017-11-15] MEDS ORDERED: VERAPAMIL 5 MG/2 ML VIAL ONE (07:01)
[2017-11-15] MEDS ORDERED: fentaNYL 250 MCG/5 ML INJ ONE ×2 (07:07)
[2017-11-15] MEDS ORDERED: PROPOFOL 200 MG/20 ML VIAL ONE (07:07)
[2017-11-15] MEDS ORDERED: MIDAZOLAM 2 MG/2 ML VIAL ONE (07:08)
[2017-11-15] MEDS ORDERED: ROCURONIUM 100 MG/10 ML VIAL ONE (07:12)
[2017-11-15] MEDS ORDERED: SUCCINYLCHOLINE CHLORIDE 200 MG/10 ML SYR IVP ONE (07:12)
[2017-11-15] MEDS ORDERED: LIDOCAINE 2% 5 ML SDV ONE (07:13)
[2017-11-15] MEDS ORDERED: PHENYLEPHRINE 10 MG/ML SDV ONE (07:15)
[2017-11-15] MEDS ORDERED: EPINEPHrine 1 MG/ML INJ ONE (07:15)
[2017-11-15] MEDS ORDERED: LABETALOL HCL 5 MG/ML 20 ML MDV ONE (07:19)
[2017-11-15] MEDS ORDERED: NOREPINEPHRINE BITARTRATE 16 MG in NS 250 ML IV ONE (07:30)
[2017-11-15] MEDS ORDERED: SUGAMMADEX SODIUM 200 MG/2 ML VIAL IVP ONE ×2 (11:38→11:56)
--- NOTE | 2017-11-15 12:04 | ASMTCASEMG ---
Living Arrangements What is your living Answers: With Spouse arrangement? Who do you live with? Type Of Residence What kind of residence do Answers: House you live in? Discharge Plan Comments Coordination Status Comments Notes: Patient is an 82yo male who has severe progressive CAD with significant instent restenosis of proximal RCA. Patient was admitted for coronary artery bypass graft x3, perfusion, and trans esophageal echocardiogram. No therapies ordered at this time. CM to stay in touch with Dr. Kapoor and his team regarding patient needs. D/C plan TBD. CM will follow. Date Signed: 11/15/2017 12:03 PM Electronically Signed By:Ankita Swanson LCSW
[2017-11-15] MEDS ORDERED: PANTOPRAZOLE SODIUM 40 MG VIAL IVP ONE (12:06)
[2017-11-15] MEDS ORDERED: ONDANSETRON DISINTEGRATING 4 MG TAB PO PRN (12:06)
[2017-11-15] MEDS ORDERED: POLYETHYLENE GLYCOL 3350 17 GM PKT PO PRN (12:06)
[2017-11-15] MEDS ORDERED: BISACODYL 10 MG SUPP PR PRN (12:06)
[2017-11-15] MEDS ORDERED: D50W 25 GM/50 ML SYR IVP PRN (12:06)
[2017-11-15] MEDS ORDERED: ALBUMIN 5% 250 ML IV PRN (12:06)
[2017-11-15] MEDS ORDERED: CEPACOL LOZENGE PO PRN (12:06)
[2017-11-15] MEDS ORDERED: MAGNESIUM HYDROXIDE 30 ML UDCUP PO PRN (12:06)
[2017-11-15] MEDS ORDERED: ACETAMINOPHEN 650 MG SUPP PR PRN (12:06)
[2017-11-15] MEDS ORDERED: METOCLOPRAMIDE 10 MG/2 ML VIAL IVP PRN (12:06)
[2017-11-15] MEDS ORDERED: HYDROCODONE/APAP 5/325 TAB PO PRN (12:06)
[2017-11-15] MEDS ORDERED: SODIUM CL NASAL 45 ML BTL EACHNARE PRN (12:06)
[2017-11-15] MEDS ORDERED: ONDANSETRON 4 MG/2 ML VIAL IVP PRN (12:06)
[2017-11-15] MEDS ORDERED: MEPERIDINE 25 MG/0.5 ML AMP IVP PRN (12:06)
[2017-11-15] MEDS ORDERED: LACTULOSE 20 GM/30 ML UDCUP PO PRN (12:06)
[2017-11-15] MEDS ORDERED: NS 1,000 ML IV SCH (12:15)
[2017-11-15] MEDS ORDERED: INSULIN REGULAR HUMAN 100 UNIT in NS 100 ML IV SCH (12:30)
[2017-11-15] MEDS ORDERED: DEXMEDETOMIDINE HCL 400 MCG in NS 100 ML IV SCH (12:30)
[2017-11-15] MEDS ORDERED: NALOXONE HCL 0.4 MG/ML INJ IVP PRN (12:37)
--- NOTE | 2017-11-15 12:37 | POSTANESTH ---
Post Anesthetic Evaluation Cardiovascular Status: Normal, Stable, Similar to Pre-Op Cond, Tx Hyper/Hypo- tension Respiratory Status: Other, See Comment (stable on vent) Level of Consciousness/Mental Status: Mildly Sleepy, Arousable Pain Control: Adequate, Prn Tx Ordered Nausea/Vomiting Control: Adequate, Prn Tx Ordered Complications Possibly Related to Anesthesia: None Noted
[2017-11-15] MEDS: fentaNYL 100 MCG/2 ML INJ IVP PRN ×3 (12:58→14:00)
[2017-11-15] MEDS: POTASSIUM Cl (KCl) 50 ML IV PRN ×4 (13:08→20:39)
[2017-11-15] MEDS: ceFAZolin 2 GM/DEXTROSE 100 ML IV SCH ×2 (13:09→22:55)
--- NOTE | 2017-11-15 13:11 | GOP ---
[f rep st] OPERATIVE REPORT DATE OF OPERATION: 11/15/2017 SURGEON: Maxim Kapoor DO AUTOMATIC GLOVE TURNER AND FORMER: Lucero Patricio, PAC ANESTHESIA: Ricky Santos MD PREOPERATIVE DIAGNOSIS: Arteriosclerotic heart disease. POSTOPERATIVE DIAGNOSIS: Arteriosclerotic heart disease. PROCEDURE PERFORMED: 1. Coronary artery bypass grafting x3 with left internal mammary artery to left anterior descending, saphenous vein graft to the lateral circumflex, and saphenous vein graft to posterior descending art saud. 2. Ligation of the left atrial appendage. 3. Endoscopic vein harvest of both legs. FINDINGS: DESCRIPTION OF PROCEDURE: The patient was consented for surgery brought to the operating room, intub ated. Monitoring lines were placed. He was prepped and draped in sterile classical manner. Vein wa s harvested from both thighs until adequate conduit was identified. A sternotomy was performed. Frank ghosh was harvested. He was heparinized. We then interrogated the aorta. The patient had heavy calc ification on the anterior wall in segment 2. Segment 3 was free of disease as was distal 4. Under s [facility] echo guidance, the aorta was cannulated in an area without plaque, and the cannula was threade d beyond the left subclavian. With echo guidance to avoid blasting the arch as the patient had a rec ent stroke, bypass was begun. We then turned the pump down to very low flow in order to gently palpa te the aorta. At the distal segment of 2, there was absolutely no plaque. It was quite soft, and a cross-clamp was applied at a low of pressure and low force. Antegrade cardioplegia was utilized as w as topical hypothermia and systemic cooling. We then grafted the circumflex which was a 2.6 mm excel lent quality vessel with a 2.6 mm vein which was then brought off the ascending aorta with a continuo us running 5-0 Prolene. We then identified the PDA, which was a good 2.5 mm vessel with some diffuse disease but good caliber. This was grafted with the proximal brought off the ascending aorta as wel l. We then looked a posterolateral of the right. It was a 1.2 mm vessel, poor quality and felt best left alone. I then spent a great deal of time looking for a deep intramuscular small LAD, which was unsuccessful. It never emerged in the distal 3rd of the apex of the heart in order to retrograde pr obe, and despite multiple attempts and getting quite deep into the septum, I had concerns about moose santana creating a VSD or entering the right ventricle, at which point I backed off. He did have an o stial LAD lesion which was questionable on cath, and for that reason, I grafted a healthier diagonal vessel which was on cath bigger than the LAD measuring 2.5 mm with the mammary. My thoughts were shahzad t if this patient did have persistent anterior ischemia that the diagonal and the circumflex were pro tected and I may be able to stent the ostium of the LAD if necessary without obstructing the diagonal or the circumflex. We then placed a 35 mm clip across the atrial appendage which was free of thromb us on echo. The cross-clamp was then removed with suction on the ascending aortic vent. Spontaneous cardiac activity was noted to resume. The patient was rewarmed, weaned from bypass. Heparin was re versed with protamine. Cannula was removed and oversewn. Two ventricular pacing wires, 2 pleural an d 1 mediastinal drains were placed. The thymic fat and pericardium were closed. Chest was closed in standard fashion. The patient was returned to ICU in stable condition. /[id number]/MODL
--- NOTE | 2017-11-15 13:21 | GCON ---
[f rep st] CONSULTATION BINGO CASHIER CONSULTATION REASON FOR CONSULTATION: Patient examined postoperatively after receiving coronary artery bypass gra ft. HISTORY OF PRESENT ILLNESS: The patient is an 82-year-old white male with a past medical history inc luding coronary artery disease, chronic renal insufficiency, diabetes, hypertension, prostate cancer, a benign pancreatic mass, and carotid stenosis. Again, he is examined postoperatively after receivi ng coronary artery bypass graft. The patient is currently sedated, on mechanical ventilation. All history is gleaned from the record. He was seen in September of this year for acute dizziness and a syncopal episode. In October, he was see n by Dr. Kapoor in the office. Currently, , he is mildly agitated on mechanical ventilation. PAST MEDICAL HISTORY: Again significant for carotid stenosis, coronary artery disease, chronic renal insufficiency, diabetes, hypertension, prostate cancer. REVIEW OF SYSTEMS: A 10-point review of systems was performed and negative with the exception of wha t is listed in HPI. FAMILY HISTORY: Noncontributory. SOCIAL HISTORY: Previous smoker. He drinks wine nightly. He is , lives his , has excell ent family support. He apparently is on oxygen at night. MEDICATIONS: At home include Protonix, Plavix, Glucophage, vitamin D3, melatonin, Toprol-XL, multivi tamin, Glucophage, aspirin. PHYSICAL EXAM: VITAL SIGNS: Blood pressure 145/69, pulse 75, respirations are 16. He is afebrile. Oxygen saturation 90% on 100% FiO2 mechanical ventilation with PEEP of 5. GENERAL: He is a thin, e lderly white male who is mildly agitated but on mechanical ventilation. HEENT: Eyes are ALEXIA. EOMI . Throat: Endotracheal tube is in good position. NECK: Supple. No cervical adenopathy. HEART: Regular rate and rhythm with a 2/6 systolic murmur at the left sternal border without radiation. DESIREE GS: Diminished breath sounds. Mild prolongation of the expiratory phase but there is no wheeze. AB DOMEN: Soft, nontender. Bowel sounds are present in all 4 quadrants. EXTREMITIES: No clubbing, cy anosis, or edema. LABORATORIES: Currently pending. IMAGING: Chest x-ray reviewed by myself reveals endotracheal tube is a little high. Central line is in good position. Minimal atelectasis in the right base. IMPRESSION: 1. Coronary artery disease. 2. Status post status post coronary artery bypass graft. 3. Chronic renal insufficiency. 4. Diabetes. 5. Hypertension. 6. History of prostate cancer. RECOMMENDATIONS: 1. Continue mechanical ventilation for now. We will wean from mechanical ventilation when appropria te. 2. DVT and PE prophylaxis, holding anticoagulation for now. 3. Stress ulcer prophylaxis. 4. Aggressive blood sugar control. 5. Early ambulation. 6. PT and OT. 7. Close monitoring of his kidney function. /[id number]/MODL
[2017-11-15] MEDS ORDERED: NALOXONE HCL 0.4 MG/ML INJ ONE (15:21)
[2017-11-15] MEDS ORDERED: KETOROLAC 15 MG/1 ML SDV IVP ONE (16:00)
--- NOTE | 2017-11-15 16:02 | CPEKG ---
Test Reason : OPEN Blood Pressure : / mmHG Vent. Rate : 085 BPM Atrial Rate : 085 BPM P-R Int : 236 ms QRS Dur : 103 ms QT Int : 403 ms P-R-T Axes : 021 -09 112 degrees QTc Int : 480 ms Sinus rhythm Ventricular premature complex First degree AVB Borderline prolonged QT interval Confirmed by Varun Miles ([id number]) on 11/15/2017 4:02:36 PM Referred By: Confirmed By:Varun Miles
--- NOTE | 2017-11-15 17:47 | PDMN ---
Medical Necessity Medical necessity: [facility] IP only surgery; cpt 09648 CABG
[2017-11-15] MEDS: niCARdipine/NACL 200 ML IV SCH (19:06)
[2017-11-15] MEDS ORDERED: FAMOTIDINE 20 MG/NACL 50 ML IV SCH (21:00)
[2017-11-15] MEDS ORDERED: CHLORHEXIDINE GLUCONATE 15 ML UDL PO SCH (21:00)
[2017-11-15] MEDS: MUPIROCIN 2% 22 GM OINT NS SCH (21:19)
[2017-11-15] MEDS: KETOROLAC 30 MG/1 ML SDV IVP PRN (23:16)
[2017-11-16] MEDS: niCARdipine/NACL 200 ML IV SCH (04:18)
[2017-11-16 05:45] LABS: PLATELET COUNT 95 10^3/uL (150-400)
[2017-11-16] MEDS: KETOROLAC 30 MG/1 ML SDV IVP PRN ×3 (05:55→17:59)
[2017-11-16] MEDS: ceFAZolin 2 GM/DEXTROSE 100 ML IV SCH ×3 (05:56→22:12)
[2017-11-16] MEDS: HEPARIN 5,000 UNIT/0.5 ML INJ SC SCH ×2 (05:57→15:01)
--- NOTE | 2017-11-16 07:17 | SOAPPROG ---
SOAP Progress Note Assessment/Plan: Assessment: POD#1 CABG x 3 (VELEZ-D1, SV-lat LCX, SV-PDA), EVH bilat thighs, prophylactic AtriClip ligation left atrial appendage Sx severe CAD with preserved LV systolic fx - Intramuscular LAD and VELEZ grafted to principal diagonal. Hemodynamically stable overnoc. Intermittent low dose cardene for BP control. No tachyarrhythmias. No sig volume overload. Secondary prevention with ASA, BB and statin when appropriate. Acute expected blood loss anemia - Stable s/p 2u PRBC. No evidence active bleeding. Care w VTE prophylaxis while platelets depressed. Acute postoperative respiratory insufficiency - Hypercarbia, exacerbated by underlying ZION. No sig delay in extubation. Stable sats on BiPAP. Presence of artificial urinary sphincter s/p prostate CA - AUS deflated and indwelling ruiz placed by urology preoperatively. Plan condom cath until AUS reactivated. Plan: Routine POD#1 orders re. wires, tubes, and mobility Strict NPO until orals cleared by COMPUTER SCIENCE INSTRUCTOR Transition Cardene to metoprolol tartrate once taking po D/C mandie if good correlation to cuff pressures Keep ruiz until more mobile 11/16/17 07:15 Subjective: Feels a little disoriented. Comfortable sitting in chair. No nausea or dizziness. Objective: Vital Signs Temp Pulse Resp BP Pulse Ox 36.9 C 88 15 159/58 H 98 11/16/17 05:00 11/16/17 05:00 11/16/17 05:00 11/16/17 05:00 11/16/17 05:00 Laboratory Results 11/16/17 05:25 11/16/17 05:25 11/15/17 11/16/17 11/17/17 05:59 05:59 05:59 Intake Total 1341 Output Total 1555 Balance -214 Cardene at 2 mg/hr for SBP > 160. Holding SR 70s-80s. Extubated yest afternoon. Min suppl O2 req. CTOP low. CXR -> No PTX, no pulm vasc congestion, no undrained effusions. Labs as expected. Physical Exam - Physical Exam General Appearance: alert, no apparent distress (cooperative with exam) Respiratory: lungs clear (grossly), other (blakes x 3 y-d to pleurovac, serosang drainage, no air leak) Cardiac/Chest: regular rate, rhythm, other (Sternotomy CDI. V wires intact.) Abdomen: normal bowel sounds, non-tender, soft Skin: warm/dry Extremities: swelling (Trace dependent), other (Bilateral leg wraps intact) ICD10 Worksheet Patient Problems: Problems Problem Status Onset Acute blood loss anemia Acute Coronary stent restenosis Acute S/P CABG x 3 Acute ~11/15/17 CAD, multiple vessel Chronic CVD (cardiovascular disease) Chronic Diabetes mellitus type 2, controlled Chronic Other artificial openings of urinary tract status Chronic Chronic Disease Mgmt/Transitional Care Acute
[2017-11-16] MEDS ORDERED: ASPIRIN 81 MG CHEWABLE TAB TUBE PRN (09:00)
--- NOTE | 2017-11-16 09:11 | PDINTPN ---
Healthcare Administrative Assistant Progress Note Assessment/Plan: Assessment/plan: * Status post coronary bypass graft * Hypercarbic respiratory failure-markedly improved -OFF BIPAP * Obstructive sleep apnea -have instructed patient to follow-up for a outpatient sleep study a month after discharge * Coronary artery disease * Diabetes-blood sugar under control * History of prostate cancer * Pain-well controlled * PT/OT * Ambulation Subjective: Sitting up in chair. Somewhat confused. Pain well tolerated. Objective: Vital Signs Temp Pulse Resp BP Pulse Ox 36.6 C 90 16 171/54 H 99 11/16/17 07:40 11/16/17 07:40 11/16/17 07:40 11/16/17 07:40 11/16/17 07:40 Laboratory Results 11/16/17 05:25 11/16/17 05:25 11/15/17 11/16/17 11/17/17 05:59 05:59 05:59 Intake Total 1341 Output Total 1555 Balance -214 Chest x-ray by myself. Central line in good position. Chest tube in good position. Lungs are clear. - Time Spent With Patient Time Spent With Patient: 35 min of time spent with patient, over 1/2 involved with coordination of care or counseling Case discussed with surgery and nursing Physical Exam - Physical Exam General Appearance: alert, no apparent distress EENT: PERRL/EOMI Neck: non-tender, full range of motion, supple, normal inspection Respiratory: decreased breath sounds, No respiratory distress, No wheezing Cardiac/Chest: normal peripheral pulses, regular rate, rhythm, systolic murmur Peripheral Pulses: 2+: carotid (R), carotid (L), femoral (R), femoral (L), dorsalis-pedis (R), dorsalis-pedis (L) Abdomen: normal bowel sounds, non-tender, soft Male Genitalia: deferred Rectal: deferred Skin: normal color, warm/dry Extremities: normal range of motion, non-tender, normal inspection, normal capillary refill Neuro/Psych: alert, other (Some confusion) ICD10 Worksheet Patient Problems: Problems Problem Status Onset Acute blood loss anemia Acute Coronary stent restenosis Acute S/P CABG x 3 Acute ~11/15/17 CAD, multiple vessel Chronic CVD (cardiovascular disease) Chronic Diabetes mellitus type 2, controlled Chronic Other artificial openings of urinary tract status Chronic Chronic Disease Mgmt/Transitional Care Acute
[2017-11-16] MEDS ORDERED: METOPROLOL TARTRATE 25 MG TAB PO ONE (11:12)
[2017-11-16] MEDS: ACETAMINOPHEN 325 MG TAB PO PRN ×2 (11:34→17:59)
[2017-11-16] MEDS: PANTOPRAZOLE SODIUM 40 MG TAB PO SCH (11:34)
[2017-11-16] MEDS: ASPIRIN 81 MG CHEWABLE TAB PO SCH (11:34)
[2017-11-16] MEDS: MUPIROCIN 2% 22 GM OINT NS SCH ×2 (11:35→20:15)
[2017-11-16] MEDS ORDERED: traMADol 50 MG TAB PO PRN (13:14)
[2017-11-16] MEDS ORDERED: NALOXONE HCL 0.4 MG/ML INJ IVP ONE (15:30)
[2017-11-16] MEDS: INSULIN LISPRO 100 UNIT/ML SC SCH (17:59)
[2017-11-16] MEDS ORDERED: METOPROLOL TARTRATE 25 MG TAB PO SCH (21:00)
[2017-11-17] MEDS: ACETAMINOPHEN 325 MG TAB PO PRN ×4 (00:43→17:40)
[2017-11-17] MEDS: KETOROLAC 15 MG/1 ML SDV IVP PRN ×3 (06:20→19:06)
[2017-11-17] MEDS ORDERED: POTASSIUM CL 10 MEQ TAB PO ONE (07:07)
[2017-11-17] MEDS ORDERED: FUROSEMIDE 20 MG/2 ML VIAL IVP ONE (07:07)
--- NOTE | 2017-11-17 07:25 | SOAPPROG ---
SOAP Progress Note Assessment/Plan: Assessment: POD#2 CABG x 3 (VELEZ-D1, SV-lat LCX, SV-PDA), EVH bilat thighs, prophylactic AtriClip ligation left atrial appendage Sx severe CAD/ISR RCA with preserved LV systolic fx - Intramuscular LAD and VELEZ grafted to principal diagonal. Hemodynamically stable early postop course. No pressor support. No bradyarrhythmias. No sig volume overload. Secondary prevention with ASA, BB and statin when appropriate. No further need for Plavix. Acute expected blood loss anemia - Stable s/p 2u PRBC. No evidence active bleeding. Care w VTE prophylaxis while platelets depressed. Acute postoperative respiratory insufficiency - Hypercarbia, exacerbated by underlying ZION. No sig delay in extubation. Stable sats on BiPAP. Postoperative PAF - Freq PACs with couple runs (10-15 beats) of AF last noc. Sufficient BP to escalate BB. Amio reserved for sustained RVR. Presence of artificial urinary sphincter s/p prostate CA - AUS deflated and indwelling ruzi placed by urology preoperatively. Interim condom cath until AUS reactivated. DM2 - Well controlled by preop A1c of 6.5%. Postop hyperglycemia managed with insulin gtt. Transitioned to SSI. Reintro of Metformin as oral intake improves. Plan: Start gentle diuresis. Increase metoprolol tartrate to 25 mg BID. Consider removal TCPW and ant mediastinal drain later today. Increase activity as tolerated. Tx to PCU. 11/17/17 07:24 Subjective: Much better than yest. Improved comfort, IS, mobility and appetite. No acute concerns. Objective: Vital Signs Temp Pulse Resp BP Pulse Ox 37 C 91 17 162/78 H 96 11/17/17 05:43 11/17/17 05:43 11/17/17 05:43 11/17/17 05:43 11/17/17 05:43 Laboratory Results 11/17/17 05:37 11/17/17 05:37 11/16/17 11/17/17 11/18/17 05:59 05:59 05:59 Intake Total 1341 1410 Output Total 1555 1035 Balance -214 375 Rhythm sinus w freq PACs, PVCs. Couple bursts of AF last noc. Uptrending SBPs. Borderline suppl O2 req. Balanced I/Os. +2 kg overall. CTOP approaching removal criteria. Platelets yet to rebound. 4u correctional insulin yest. Physical Exam - Physical Exam General Appearance: alert, no apparent distress Respiratory: lungs clear, other (blakes x 3 to bulb suction, serosang drainage) Cardiac/Chest: regular rate, rhythm, other (Sternotomy and bilat venotomies CDI. Vwires intact.) Abdomen: normal bowel sounds, non-tender, soft Skin: warm/dry Extremities: swelling (1+ dependent) ICD10 Worksheet Patient Problems: Problems Problem Status Onset Acute blood loss anemia Acute Coronary stent restenosis Acute S/P CABG x 3 Acute ~11/15/17 CAD, multiple vessel Chronic CVD (cardiovascular disease) Chronic Diabetes mellitus type 2, controlled Chronic Other artificial openings of urinary tract status Chronic Chronic Disease Mgmt/Transitional Care Acute
[2017-11-17] MEDS: METOPROLOL TARTRATE 25 MG TAB PO SCH ×2 (08:53→23:58)
[2017-11-17] MEDS: INSULIN LISPRO 100 UNIT/ML SC SCH ×3 (08:54→17:19)
[2017-11-17] MEDS: SENNOSIDES/DOCUSATE SODIUM TAB PO SCH ×2 (08:54→23:58)
[2017-11-17] MEDS: ASPIRIN 81 MG CHEWABLE TAB PO SCH (08:55)
[2017-11-17] MEDS: PANTOPRAZOLE SODIUM 40 MG TAB PO SCH (08:56)
[2017-11-17] MEDS: MUPIROCIN 2% 22 GM OINT NS SCH (08:59)
[2017-11-17] MEDS: metFORMIN HCL 500 MG TAB PO SCH ×2 (09:11→17:19)
--- NOTE | 2017-11-17 09:24 | PDINTPN ---
[facility] Progress Note Assessment/Plan: Assessment/plan: * Status post coronary bypass graft * Hypercarbic respiratory failure-hypercarbia resolved -wean FiO2 as tolerated * Obstructive sleep apnea -have instructed patient to follow-up for a outpatient sleep study a month after discharge * Coronary artery disease * Diabetes-blood sugar under control * History of prostate cancer * Pain-well controlled * PT/OT * Ambulation * Disposition-transfer to PCU today Subjective: Sitting up in chair. Resting comfortably. Pain well controlled. Denies any dyspnea. Good appetite Objective: Vital Signs Temp Pulse Resp BP Pulse Ox 37.1 C 90 20 141/52 H 93 11/17/17 08:00 11/17/17 08:53 11/17/17 08:00 11/17/17 08:53 11/17/17 08:00 Laboratory Results 11/17/17 05:37 11/17/17 05:37 11/16/17 11/17/17 11/18/17 05:59 05:59 05:59 Intake Total 1341 1410 Output Total 1555 1035 Balance -214 375 - Time Spent With Patient Time Spent With Patient: 35 min of time spent with patient, over 1/2 involved with coordination of care or counseling. Case discussed with cardiothoracic surgery and nursing Physical Exam - Physical Exam General Appearance: alert, no apparent distress EENT: PERRL/EOMI Neck: non-tender, full range of motion, supple, normal inspection Respiratory: prolonged expiration, No respiratory distress, No wheezing Cardiac/Chest: normal peripheral pulses, regular rate, rhythm, systolic murmur Peripheral Pulses: 2+: carotid (R), carotid (L), femoral (R), femoral (L), dorsalis-pedis (R), dorsalis-pedis (L) Abdomen: normal bowel sounds, non-tender, soft Male Genitalia: deferred Rectal: deferred Skin: normal color, warm/dry Extremities: non-tender Neuro/Psych: no motor/sensory deficits, alert, normal mood/affect, oriented x 3 ICD10 Worksheet Patient Problems: Problems Problem Status Onset Acute blood loss anemia Acute Coronary stent restenosis Acute S/P CABG x 3 Acute ~11/15/17 CAD, multiple vessel Chronic CVD (cardiovascular disease) Chronic Diabetes mellitus type 2, controlled Chronic Other artificial openings of urinary tract status Chronic Chronic Disease Mgmt/Transitional Care Acute
[2017-11-17] MEDS ORDERED: AMIODARONE HCL 100 ML IV ONE (09:55)
[2017-11-17] MEDS ORDERED: AMIODARONE HCL 200 ML IV ONE (09:55)
[2017-11-17] MEDS ORDERED: AMIODARONE HCL 540 MG in D5W 300 ML IV ONE (16:00)
[2017-11-18] MEDS: ACETAMINOPHEN 325 MG TAB PO PRN (06:24)
--- NOTE | 2017-11-18 07:55 | SOAPPROG ---
SOAP Progress Note Assessment/Plan: Assessment: POD#3 CABG x 3 (VELEZ-D1, SV-lat LCX, SV-PDA), EVH bilat thighs, prophylactic AtriClip ligation left atrial appendage Sx severe CAD/ISR RCA with preserved LV systolic fx - Intramuscular LAD and VELEZ grafted to principal diagonal. Hemodynamically stable early postop course. No pressor support. No bradyarrhythmias. No sig volume overload. Secondary prevention with ASA, BB and statin. No further need for Plavix. Acute expected blood loss anemia - Stable s/p 2u PRBC. No evidence active bleeding. Platelet rebound evident. Acute postoperative respiratory insufficiency - Hypercarbia, exacerbated by underlying ZION. No sig delay in extubation. Stable sats on BiPAP. Suppl O2 needs resolving. Postoperative PAF - Freq PACs with couple runs (10-15 beats) of AF POD#1 and more sustained AF yest morning. SR promptly restored on amio. Sufficient BP to escalate BB. [id number] VASc score of 7. Antithrombotic prophylaxis with Eliquis if recurrent. Presence of artificial urinary sphincter s/p prostate CA - AUS deflated and indwelling ruiz placed by urology preoperatively. Interim condom cath until AUS reactivated. DM2 - Well controlled by preop A1c of 6.5%. Postop hyperglycemia managed with insulin gtt. Transitioned to SSI and home Metformin. No sig correctional needs. Plan: Transition to oral amio. Switch to oral diuresis. Inc metoprolol tartrate to 37.5 mg BID. Remove TCPW, ant mediastinal and left pleural drain. Increase activity as tolerated. Wean O2. Expect urology to reactivate AUS tomorrow. Dispo - Anticipate SNF in 2-3 days. 11/18/17 07:55 Subjective: Feels well. Satisfactory analgesia. Good appetite. Improving mobility. Objective: Vital Signs Temp Pulse Resp BP Pulse Ox 36.8 C 79 17 156/71 H 99 11/18/17 07:31 11/18/17 07:31 11/18/17 07:31 11/18/17 07:31 11/18/17 07:31 Laboratory Results 11/18/17 06:10 11/18/17 06:10 11/17/17 11/18/17 11/19/17 05:59 05:59 05:59 Intake Total 1410 900.4 Output Total 1035 540 Balance 375 360.4 Holding SR. Uptrending SBPs. Excellent O2 sats. CTOP approaching removal criteria. Platelets rebounding. Physical Exam - Physical Exam General Appearance: alert, no apparent distress Respiratory: lungs clear (grossly), other (Blakes x 3 to bulb suction, serosang drainage) Cardiac/Chest: regular rate, rhythm, other (Sternotomy and bilat thigh venots CDI) Abdomen: non-tender, soft Skin: warm/dry Extremities: swelling (1+ dependent) ICD10 Worksheet Patient Problems: Problems Problem Status Onset Acute blood loss anemia Acute Coronary stent restenosis Acute Paroxysmal atrial fibrillation Acute S/P CABG x 3 Acute ~11/15/17 CAD, multiple vessel Chronic CVD (cardiovascular disease) Chronic Diabetes mellitus type 2, controlled Chronic Other artificial openings of urinary tract status Chronic Chronic Disease Mgmt/Transitional Care Acute
[2017-11-18] MEDS: INSULIN LISPRO 100 UNIT/ML SC SCH ×3 (09:30→18:56)
[2017-11-18] MEDS: POTASSIUM CL 20 MEQ TAB PO SCH ×2 (09:55→21:00)
[2017-11-18] MEDS: ASPIRIN 81 MG CHEWABLE TAB PO SCH (09:55)
[2017-11-18] MEDS: metFORMIN HCL 500 MG TAB PO SCH ×2 (09:55→18:56)
[2017-11-18] MEDS: SENNOSIDES/DOCUSATE SODIUM TAB PO SCH (09:56)
[2017-11-18] MEDS: CHOLECALCIFEROL VIT D3 1,000 UNITS TAB PO SCH (09:56)
[2017-11-18] MEDS: AMIODARONE HCL 200 MG TAB PO SCH ×2 (09:56→21:00)
[2017-11-18] MEDS: PANTOPRAZOLE SODIUM 40 MG TAB PO SCH (09:56)
[2017-11-18] MEDS: METOPROLOL TARTRATE 25 MG TAB PO SCH (09:56)
[2017-11-18] MEDS: MULTIVITAMINS 1 EACH TAB PO SCH (09:56)
[2017-11-18] MEDS: FUROSEMIDE 40 MG TAB PO SCH ×2 (09:56→15:47)
[2017-11-18] MEDS ORDERED: METOPROLOL TARTRATE 25 MG TAB PO ONE (12:00)
--- NOTE | 2017-11-18 16:03 | ASMTCMCOM ---
CM Note CM Note Notes: 11/18/2017 Case Management Note Reviewed case with Lucero Patricio this morning. PT is recommending outpatient cardiac rehab. Case Management d/c poc: anticipating independent with cardiac rehab. Case Management to follow. Date Signed: 11/18/2017 04:03 PM Electronically Signed By:Nilsa Weinstein RN
[2017-11-18] MEDS ORDERED: METOPROLOL TARTRATE 25 MG TAB PO SCH (21:00)
[2017-11-18] MEDS ORDERED: SENNOSIDES/DOCUSATE SODIUM TAB PO PRN (21:00)
[2017-11-19] MEDS: ACETAMINOPHEN 325 MG TAB PO PRN (06:24)
--- NOTE | 2017-11-19 07:44 | SOAPPROG ---
SOAP Progress Note Assessment/Plan: Assessment: POD#4 CABG x 3 (VELEZ-D1, SV-lat LCX, SV-PDA), EVH bilat thighs, prophylactic AtriClip ligation left atrial appendage Sx severe CAD/ISR RCA with preserved LV systolic fx - Intramuscular LAD and VELEZ grafted to principal diagonal. Hemodynamically stable early postop course. No pressor support. No bradyarrhythmias. No sig volume overload. Secondary prevention with ASA, BB and statin. No further need for Plavix. Acute expected blood loss anemia - Stable s/p 2u PRBC. No evidence active bleeding. Platelet rebound evident. Acute postoperative respiratory insufficiency - Hypercarbia, exacerbated by underlying ZION. No sig delay in extubation. Stable sats on BiPAP. Suppl O2 needs resolving. Postoperative PAF - Freq PACs with couple runs (10-15 beats) of AF POD#1 and more sustained AF yest morning. SR promptly restored on amio. Sufficient BP to escalate BB. [id number] VASc score of 7. Antithrombotic prophylaxis with Eliquis if recurrent. Presence of artificial urinary sphincter s/p prostate CA - AUS deflated and indwelling ruiz placed by urology preoperatively. Interim condom cath until AUS reactivated. DM2 - Well controlled by preop A1c of 6.5%. Postop hyperglycemia managed with insulin gtt. Transitioned to SSI and home Metformin. No sig correctional needs. Plan: Remove rt pleural drain. Cont amio 200 mg BID. Hold diuresis today. Inc metoprolol tartrate to 50 mg BID. Increase activity as tolerated. Will ask urology (Ishan) to reactivate AUS. Dispo - Anticipate SNF in 1-2 days. 11/19/17 07:43 Subjective: Tired today. Looking forward to a shower. +BM Objective: Vital Signs Temp Pulse Resp BP Pulse Ox 36.9 C 83 18 132/61 H 97 11/19/17 07:28 11/19/17 07:28 11/19/17 07:28 11/19/17 07:28 11/19/17 07:28 Laboratory Results 11/18/17 06:10 11/19/17 06:20 11/18/17 11/19/17 11/20/17 05:59 05:59 05:59 Intake Total 900.4 900 Output Total 540 815 Balance 360.4 85 Holding SR w SBPs > 120. Borderline suppl O2 req. 3+ kg wt loss/24h. Now 2 kg below admit wt. CTOP at removal criteria. - Pending Discharge Pending Discharge Within 48 Hours: Yes Pending Discharge Date: 11/21/17 Pending Discharge Time: 11:00 Physical Exam - Physical Exam General Appearance: alert, no apparent distress Respiratory: rales (rt base), other (palomo to bulb suction, mostly serous drainage) Abdomen: non-tender, soft Skin: warm/dry Extremities: swelling (trace dependent), other (bilat venots CDI) ICD10 Worksheet Patient Problems: Problems Problem Status Onset Acute blood loss anemia Acute Coronary stent restenosis Acute Paroxysmal atrial fibrillation Acute S/P CABG x 3 Acute ~11/15/17 CAD, multiple vessel Chronic CVD (cardiovascular disease) Chronic Diabetes mellitus type 2, controlled Chronic Other artificial openings of urinary tract status Chronic Chronic Disease Mgmt/Transitional Care Acute
[2017-11-19] MEDS: AMIODARONE HCL 200 MG TAB PO SCH ×2 (08:13→21:33)
[2017-11-19] MEDS: ASPIRIN 81 MG CHEWABLE TAB PO SCH (08:13)
[2017-11-19] MEDS: metFORMIN HCL 500 MG TAB PO SCH ×2 (08:14→18:41)
[2017-11-19] MEDS: MULTIVITAMINS 1 EACH TAB PO SCH (08:14)
[2017-11-19] MEDS: METOPROLOL TARTRATE 50 MG TAB PO SCH ×2 (08:14→21:33)
[2017-11-19] MEDS: PANTOPRAZOLE SODIUM 40 MG TAB PO SCH (08:14)
[2017-11-19] MEDS: CHOLECALCIFEROL VIT D3 1,000 UNITS TAB PO SCH (08:15)
[2017-11-19] MEDS: HEPARIN 5,000 UNIT/0.5 ML INJ SC SCH ×3 (08:15→21:33)
[2017-11-19] MEDS: INSULIN LISPRO 100 UNIT/ML SC SCH ×3 (08:16→19:38)
[2017-11-19] MEDS ORDERED: ALBUMIN 5% 250 ML IV ONE (09:45)
[2017-11-19] MEDS ORDERED: D50W 25 GM/50 ML VIAL IVP PRN (16:00)
--- NOTE | 2017-11-19 18:05 | SOAPPROG ---
SOAP Progress Note Assessment/Plan: Assessment: Asked by CV team to reactivate pt's AUS. Preston removed this past weekend and pt. managed with diapers since. No -specific complaints. Plan: AUS reactivated without complication. Pt. to RTC prn following hospital discharge. Subjective: No complaints. Having incontinence as expected following postop Preston removal. Objective: Vital Signs Temp Pulse Resp BP Pulse Ox 36.9 C 77 17 136/66 H 99 11/19/17 15:42 11/19/17 15:42 11/19/17 15:42 11/19/17 15:42 11/19/17 15:42 Laboratory Results 11/18/17 06:10 11/19/17 06:20 11/18/17 11/19/17 11/20/17 05:59 05:59 05:59 Intake Total 900.4 900 470 Output Total 540 815 270 Balance 360.4 85 200 Physical Exam - Physical Exam General Appearance: WD/WN, alert, no apparent distress Abdomen: soft Rectal: other (AUS reactivated in standard fashion) Neuro/Psych: alert, normal mood/affect ICD10 Worksheet Patient Problems: Problems Problem Status Onset Acute blood loss anemia Acute Coronary stent restenosis Acute Paroxysmal atrial fibrillation Acute S/P CABG x 3 Acute ~11/15/17 CAD, multiple vessel Chronic CVD (cardiovascular disease) Chronic Diabetes mellitus type 2, controlled Chronic Other artificial openings of urinary tract status Chronic Chronic Disease Mgmt/Transitional Care Acute
[2017-11-19] MEDS: ATORVASTATIN CALCIUM 40 MG TAB PO SCH (18:40)
[2017-11-20] MEDS: HEPARIN 5,000 UNIT/0.5 ML INJ SC SCH ×3 (06:12→21:52)
--- NOTE | 2017-11-20 06:58 | SOAPPROG ---
SOAP Progress Note Assessment/Plan: POD#5: CABG x3 (VELEZ-D1, SV-lat LCX, SV-PDA), EVH bilat thighs, prophylactic AtriClip ligation left atrial appendage Sx severe CAD/ISR RCA with preserved LV systolic fx - Intramuscular LAD and VELEZ grafted to principal diagonal. Hemodynamically stable early postop course. No pressor support. No bradyarrhythmias. No sig volume overload. Secondary prevention with ASA, BB and statin. No further need for Plavix. Acute expected blood loss anemia - Stable s/p 2u PRBC. No evidence active bleeding. Platelet rebound evident. Acute postoperative respiratory insufficiency - Hypercarbia, exacerbated by underlying ZION. No sig delay in extubation. Stable sats on BiPAP. Suppl O2 needs resolving. Postoperative PAF - Freq PACs with couple runs (10-15 beats) of AF POD#1 and more sustained AF yest morning. SR promptly restored on amio. Sufficient BP to escalate BB. [id number] VASc score of 7. Antithrombotic prophylaxis with Eliquis if recurrent. Presence of artificial urinary sphincter s/p prostate CA - AUS reactivated and working properly as per patient. DM2 - Well controlled by preop A1c of 6.5%. Postop hyperglycemia managed with insulin gtt. Transitioned to SSI and home Metformin. No sig correctional needs. Disposition - [facility] . Subjective: Feels well. Denies pain/SOB. Objective: Vital Signs Temp Pulse Resp BP Pulse Ox 36.6 C 85 18 136/73 H 94 11/20/17 04:00 11/20/17 04:00 11/20/17 04:00 11/20/17 04:00 11/20/17 04:00 Laboratory Results 11/20/17 04:40 11/20/17 04:40 11/19/17 11/20/17 11/21/17 05:59 05:59 05:59 Intake Total 900 1340 Output Total 815 1145 Balance 85 195 Physical Exam - Physical Exam General Appearance: WD/WN, alert, no apparent distress EENT: No scleral icterus (R), No scleral icterus (L) Neck: normal inspection Respiratory: No respiratory distress Cardiac/Chest: regular rate, rhythm Abdomen: non-tender, soft, No distended Skin: normal color, warm/dry Extremities: pedal edema Neuro/Psych: no motor/sensory deficits, alert, normal mood/affect, oriented x 3 ICD10 Worksheet Patient Problems: Problems Problem Status Onset Acute blood loss anemia Acute Coronary stent restenosis Acute Paroxysmal atrial fibrillation Acute S/P CABG x 3 Acute ~11/15/17 CAD, multiple vessel Chronic CVD (cardiovascular disease) Chronic Diabetes mellitus type 2, controlled Chronic Other artificial openings of urinary tract status Chronic Chronic Disease Mgmt/Transitional Care Acute
[2017-11-20] MEDS: INSULIN LISPRO 100 UNIT/ML SC SCH (08:38)
[2017-11-20] MEDS: MULTIVITAMINS 1 EACH TAB PO SCH (08:39)
[2017-11-20] MEDS: METOPROLOL TARTRATE 50 MG TAB PO SCH ×2 (08:39→21:52)
[2017-11-20] MEDS: FUROSEMIDE 40 MG/4 ML VIAL IVP SCH ×2 (08:39→15:30)
[2017-11-20] MEDS: ASPIRIN 81 MG CHEWABLE TAB PO SCH (08:39)
[2017-11-20] MEDS: AMIODARONE HCL 200 MG TAB PO SCH ×2 (08:40→21:52)
[2017-11-20] MEDS: POTASSIUM CL 20 MEQ TAB PO SCH ×2 (08:40→21:52)
[2017-11-20] MEDS: PANTOPRAZOLE SODIUM 40 MG TAB PO SCH (08:40)
[2017-11-20] MEDS: CHOLECALCIFEROL VIT D3 1,000 UNITS TAB PO SCH (08:40)
[2017-11-20] MEDS: CALCIUM CARB W/VIT D 500 MG TAB PO SCH (08:40)
[2017-11-20] MEDS: metFORMIN HCL 500 MG TAB PO SCH ×2 (08:40→18:02)
--- NOTE | 2017-11-20 13:43 | ASMTCMCOM ---
CM Note CM Note Notes: Case Management note 11/20/17 Both [facility] and [facility] have accepted pt. CM met w/ pt and pts for dispo planning. Pt and would like to go w/ [facility]. CM notified [facility] and [facility]. CM spoke to PAULIE Elkins regarding d/c POC. Anticapte d/c for tomorrow. CM to follow. Plan: [facility] Case Management note 11/19/17 Per PAULIE Crockett patient and want tro explore options for rehab stay prior to discharge home. I have placed referrals to [facility] and [facility] per family request. CM to follow. Plan: to SNF Date Signed: 11/20/2017 01:42 PM Electronically Signed By:GHAZALA Scruggs
[2017-11-20] MEDS: ATORVASTATIN CALCIUM 40 MG TAB PO SCH (18:02)
[2017-11-20] MEDS: ACETAMINOPHEN 325 MG TAB PO PRN (21:51)
[2017-11-21] MEDS: HEPARIN 5,000 UNIT/0.5 ML INJ SC SCH ×3 (06:31→22:11)
--- NOTE | 2017-11-21 07:30 | SOAPPROG ---
SOAP Progress Note Assessment/Plan: POD#6: CABG x3 (VELEZ-D1, SV-lat LCX, SV-PDA), EVH bilat thighs, prophylactic AtriClip ligation left atrial appendage Severe CAD/ISR RCA with preserved LV systolic fx s/p CABGx3 - Secondary prevention with ASA, BB and statin. No further need for Plavix. Acute expected blood loss anemia - Stable s/p 2u PRBC. No evidence active bleeding. Platelet rebound evident. Acute postoperative respiratory insufficiency - Resolved. Postoperative PAF - SR promptly restored on amio/BB. [id number] VASc score of 7. Antithrombotic prophylaxis with Eliquis if recurrent. Presence of artificial urinary sphincter s/p prostate CA - AUS reactivated and working properly as per patient. DM2 - Well controlled by preop A1c of 6.5%. Home Metformin restarted. Disposition - [facility] Saturday. Subjective: Pt c/o of chest tightness this morning and feeling sweaty. Denies SOB. Objective: Vital Signs Temp Pulse Resp BP Pulse Ox 36.6 C 95 16 114/59 L 95 11/21/17 04:00 11/21/17 04:00 11/21/17 04:00 11/21/17 04:00 11/21/17 04:00 Laboratory Results 11/20/17 04:40 11/20/17 04:40 11/20/17 11/21/17 11/22/17 05:59 05:59 05:59 Intake Total 1340 1050 Output Total 1145 1725 Balance 195 -675 Physical Exam - Physical Exam General Appearance: WD/WN, alert, no apparent distress EENT: No scleral icterus (R), No scleral icterus (L) Neck: normal inspection Respiratory: No respiratory distress Cardiac/Chest: regular rate, rhythm Abdomen: non-tender, soft, No distended Skin: normal color, warm/dry Extremities: pedal edema Neuro/Psych: no motor/sensory deficits, alert, normal mood/affect, oriented x 3 ICD10 Worksheet Patient Problems: Problems Problem Status Onset Acute blood loss anemia Acute Coronary stent restenosis Acute Paroxysmal atrial fibrillation Acute S/P CABG x 3 Acute ~11/15/17 CAD, multiple vessel Chronic CVD (cardiovascular disease) Chronic Diabetes mellitus type 2, controlled Chronic Other artificial openings of urinary tract status Chronic Chronic Disease Mgmt/Transitional Care Acute
[2017-11-21] MEDS: MULTIVITAMINS 1 EACH TAB PO SCH (08:18)
[2017-11-21] MEDS: AMIODARONE HCL 200 MG TAB PO SCH ×2 (08:18→22:11)
[2017-11-21] MEDS: CALCIUM CARB W/VIT D 500 MG TAB PO SCH (08:18)
[2017-11-21] MEDS: metFORMIN HCL 500 MG TAB PO SCH ×2 (08:18→17:52)
[2017-11-21] MEDS: ASPIRIN 81 MG CHEWABLE TAB PO SCH (08:18)
[2017-11-21] MEDS: ACETAMINOPHEN 325 MG TAB PO PRN (08:18)
[2017-11-21] MEDS: PANTOPRAZOLE SODIUM 40 MG TAB PO SCH (08:18)
[2017-11-21] MEDS: CHOLECALCIFEROL VIT D3 1,000 UNITS TAB PO SCH (08:18)
[2017-11-21] MEDS: METOPROLOL TARTRATE 50 MG TAB PO SCH ×2 (08:19→22:11)
[2017-11-21] MEDS: POTASSIUM CL 20 MEQ TAB PO SCH (08:25)
[2017-11-21] MEDS: FUROSEMIDE 40 MG TAB PO SCH (08:29)
[2017-11-21] MEDS: ATORVASTATIN CALCIUM 40 MG TAB PO SCH (17:53)
--- NOTE | 2017-11-22 06:17 | SOAPPROG ---
SOAP Progress Note Assessment/Plan: POD#7: CABG x3 (VELEZ-D1, SV-lat LCX, SV-PDA), EVH bilat thighs, prophylactic AtriClip ligation left atrial appendage Severe CAD/ISR RCA with preserved LV systolic fx s/p CABGx3 - Secondary prevention with ASA, BB and statin. No further need for Plavix. Acute expected blood loss anemia - Stable s/p 2u PRBC. No evidence active bleeding. Platelet rebound evident. Acute postoperative respiratory insufficiency - Resolved. Postoperative PAF - SR promptly restored on amio/BB. [id number] VASc score of 7. Antithrombotic prophylaxis with Eliquis if recurrent. Presence of artificial urinary sphincter s/p prostate CA - AUS reactivated and working properly as per patient. DM2 - Well controlled by preop A1c of 6.5%. Home Metformin restarted. Disposition - SNF today. Subjective: Feeling strong. Denies pain/SOB. Ready to be discharged. Objective: Vital Signs Temp Pulse Resp BP Pulse Ox 36.9 C 76 16 122/57 H 96 11/22/17 05:45 11/22/17 05:45 11/22/17 05:45 11/22/17 05:45 11/22/17 05:45 Laboratory Results 11/20/17 04:40 11/20/17 04:40 11/21/17 11/22/17 11/23/17 05:59 05:59 05:59 Intake Total 1050 750 Output Total 1725 1600 Balance -675 -850 Physical Exam - Physical Exam General Appearance: WD/WN, alert, no apparent distress EENT: No scleral icterus (R), No scleral icterus (L) Neck: normal inspection Respiratory: No respiratory distress Cardiac/Chest: regular rate, rhythm Abdomen: non-tender, soft, No distended Skin: normal color, warm/dry Extremities: pedal edema Neuro/Psych: no motor/sensory deficits, alert, normal mood/affect, oriented x 3 ICD10 Worksheet Patient Problems: Problems Problem Status Onset Acute blood loss anemia Acute Coronary stent restenosis Acute Paroxysmal atrial fibrillation Acute S/P CABG x 3 Acute ~11/15/17 CAD, multiple vessel Chronic CVD (cardiovascular disease) Chronic Diabetes mellitus type 2, controlled Chronic Other artificial openings of urinary tract status Chronic Chronic Disease Mgmt/Transitional Care Acute
[2017-11-22] MEDS: HEPARIN 5,000 UNIT/0.5 ML INJ SC SCH (06:38)
[2017-11-22] MEDS: CALCIUM CARB W/VIT D 500 MG TAB PO SCH (08:12)
[2017-11-22] MEDS: METOPROLOL TARTRATE 50 MG TAB PO SCH (08:13)
[2017-11-22] MEDS: ASPIRIN 81 MG CHEWABLE TAB PO SCH (08:13)
[2017-11-22] MEDS: MULTIVITAMINS 1 EACH TAB PO SCH (08:13)
[2017-11-22] MEDS: POTASSIUM CL 20 MEQ TAB PO SCH (08:13)
[2017-11-22] MEDS: metFORMIN HCL 500 MG TAB PO SCH (08:14)
[2017-11-22] MEDS: AMIODARONE HCL 200 MG TAB PO SCH (08:15)
[2017-11-22] MEDS: CHOLECALCIFEROL VIT D3 1,000 UNITS TAB PO SCH (08:15)
[2017-11-22] MEDS: FUROSEMIDE 40 MG TAB PO SCH (08:15)
[2017-11-22] MEDS: PANTOPRAZOLE SODIUM 40 MG TAB PO SCH (08:15)
[2017-11-22 11:39] VITALS: BP 116/52
--- NOTE | 2017-11-22 12:31 | ASMTLACE ---
[facility]ACE Length of stay for Answers: 7-13 days current admission Acuity / Level of Answers: Yes Care: Did the patient have an inpatient admission? Comorbidities - select Answers: Coronary Artery Disease all that apply Other Notes: severe, progressive CAD # of Emergency department Answers: 5-8 visits in the last 6 months Score: 15 Date Signed: 11/22/2017 12:30 PM Electronically Signed By:GHAZALA Scruggs
--- NOTE | 2017-11-22 13:20 | PDIAF ---
- Diagnosis Diagnosis: CABGx3 Code Status: Full Code - Medication Management Discharge Medications: Medications to Continue on Transfer Pantoprazole Sodium [Protonix 40mg (*)] 40 mg PO DAILY 04/25/15 [Last Taken ] metFORMIN HCL [Glucophage 500 mg (*)] 500 mg PO DAILY@08 08/17/17 [Last Taken ] Atorvastatin Calcium 80 mg PO DAILY18 09/22/17 [Last Taken 11/14/17] Calcium Carbonate/Vitamin D3 [Calcium 600-Vit D3 400 Tablet] 1 each PO DAILY [Last Taken 11/14/17] Cholecalciferol Vit D3 [Vitamin D3 (*)] 1,000 units PO DAILY 11/07/17 [Last Taken 11/14/17] Multivitamins [Multivitamin (*)] 1 each PO DAILY 11/07/17 [Last Taken 11/14/17] metFORMIN HCL [Glucophage 500 mg (*)] 1,000 mg PO DAILY18 11/07/17 [Last Taken 11/13/17] Acetaminophen [Tylenol 325mg (*)] 325 - 650 mg PO Q4HRS PRN tab 11/22/17 [Last Taken Unknown] Amiodarone HCl [Pacerone (*)] 200 mg PO BID tab 11/22/17 [Last Taken Unknown] Aspirin [Aspirin 81mg (*)] 81 mg PO DAILY tab.chew 11/22/17 [Last Taken Unknown ] Furosemide [Lasix 20 MG (*)] 20 mg PO DAILY #30 tab 11/22/17 [Last Taken Unknown ] Metoprolol Tartrate [Lopressor 50 mg (*)] 50 mg PO BID tab 11/22/17 [Last Taken Unknown] Potassium Chloride [Klor-Con 10] 10 meq PO DAILY #30 tablet.er 11/22/17 [Last Taken Unknown] traMADol [Ultram 50 mg (*)] 25 - 50 mg PO Q6HRS PRN tab 11/22/17 [Last Taken Unknown] Discharge Medications: Refer to the Discharge Home Medication list for PRN reason. PICC Care - Routine: N/A - Orders Services needed: Registered Nurse, Certified Ncr Operator, Master Data Administrator , Physical Therapy, Occupational Therapy Isolation Type: None Oxygen: 1 l/min via nasal cannula continuous Diet Recommendation: cardiac -low fat low salt, fluid restriction (use comment for amount) (2 liters per day) Diet Texture: Regular Texture Diet, Thin Liquids, Meds Whole w/Liquids Weigh Patient: daily Preston: No Additional Instructions: Discharge Instructions: Call [facility] cardiac rehab to enroll in phase 2 classes if not already arranged. Sternal precautions x 4 weeks. Avoid lifting > 10lbs with an outstretched arm. Avoid push/pull activities. No driving until cleared by surgery. Elevate low legs at rest. Avoid prolonged standing or dangling. Cleanse wounds once daily with soap and water. Avoid immersion (pool, hot tub, bath) until scabs off. Ok to leave all wounds open to air. Avoid creams or ointments until scabs fall off. Log daily vital signs once home: weight, heart rate, blood pressure, and pulse oximetry if on oxygen. Call [facility] for overnight weight gain > 2lbs, weekly gain > 5lbs or worsening leg swelling. Call [facility] for resting heart rate > 120 OR for systolic blood pressure consistently < 90 or > 140. Target oxygen saturation > 89%. Ok to use [id number] medications for bowel function. Chest x-ray Instructions: Please obtain a chest xray prior to surgical appointment. Chest x-rays dont require an appointment. Come to the Emergency Room entrance at the [facility] location. Sign in at the computer kiosk in the entryway. You will be given a number and may sit in the waiting area until called. You will be registered and directed to the Imaging desk on the 1st floor. This process can take up to an hour. Make sure you allow enough time before your appointment to have your x-ray taken. - Follow Up Care Current Providers and Referrals: Keith Contreras MD [Primary Care Provider] - Maxim Kapoor DO [Doctor of Osteopathy] - 11/26/17 10:00 am
--- NOTE | 2017-11-22 13:23 | PDDCSUM ---
Discharge Summary Discharge Summary: ADMISSION DATE: 11/15/17 DISCHARGE DATE: 11/22/17 DISCHARGE DIAGNOSES 1. Severe coronary atherosclerotic disease 2. Acute blood loss anemia 3. Acute postoperative respiratory insufficiency 4. Post-operative paroxysmal atrial fibrillation 5. Presence of artificial urinary sphincter s/p prostate CA PROCEDURES 11/14/17, Maxim Kapoor: 1. CABGx3 (VELEZ-LAD, SVG-lateral circumflex, SVG-PDA) 2. Ligation left atrial appendage 3. EVH BL thighs HPI 72M with severe CAD admitted for elective CABG. HOSPITAL COURSE BY PROBLEM LIST 1. Severe coronary atherosclerotic disease - s/p CABGx4. Beta-rosalio, aspirin, and statin prescribed for secondary prevention. 2. Acute blood loss anemia - stable s/p transfusion of 2 units PRBCs. 3. Acute postoperative respiratory insufficiency - resolution with supportive care. 4. Post-operative paroxysmal atrial fibrillation - beta-rosalio, calcium channel rosalio and amiodarone prescribed for rhythm and rate control. AC deferred d/t short duration of arrhythmia. 5. Presence of artificial urinary sphincter s/p prostate CA - reactivated by urology after surgery and functioning normal as per patient. CONDITION Good DISPOSITION [facility] [place] ACTIVITY Pt was instructed on sternal precautions, activity limitations, and which problems to call [facility] with. Please see Discharge Plan and Interagency Discharge Form in chart for specifics. DISCHARGE MEDICATIONS Continue: Pantoprazole Sodium [Protonix 40mg (*)] 40 mg PO DAILY metFORMIN HCL [Glucophage 500 mg (*)] 500 mg PO DAILY@08 Atorvastatin Calcium 80 mg PO DAILY18 Calcium Carbonate/Vitamin D3 [Calcium 600-Vit D3 400 Tablet] 1 each PO DAILY Cholecalciferol Vit D3 [Vitamin D3 (*)] 1,000 units PO DAILY Multivitamins [Multivitamin (*)] 1 each PO DAILY metFORMIN HCL [Glucophage 500 mg (*)] 1,000 mg PO DAILY18 New: Acetaminophen [Tylenol 325mg (*)] 325 - 650 mg PO Q4HRS PRN Amiodarone HCl [Pacerone (*)] 200 mg PO BID Aspirin [Aspirin 81mg (*)] 81 mg PO DAILY tab.chew Furosemide [Lasix 20 MG (*)] 20 mg PO DAILY Metoprolol Tartrate [Lopressor 50 mg (*)] 50 mg PO BID Potassium Chloride [Klor-Con 10] 10 meq PO DAILY traMADol [Ultram 50 mg (*)] 25 - 50 mg PO Q6HRS PRN Discontinue: Plavix, ASA 325 mg, Metoprolol Succinate 25 mg PENDING STUDIES/LABS 1. CXR prior to surgical follow-up FOLLOW-UP 1. Maxim Kapoor, 11/26/17, 10:00 AM
--- NOTE | 2017-11-22 13:42 | ASDISCHSUM ---
Discharge Information Plan Status:SNF Medically Cleared to Leave:11/22/2017 Discharge Date:11/22/2017 CM D/C Disposition: ADT D/C Disposition:Long-Term Facility Projected Discharge Date:11/22/2017 11:00 AM Transportation at D/C: Discharge Delay Reason: Follow-Up Date:11/22/2017 11:00 AM Discharge Slot: Final Diagnosis: Placement Information Referral Type:*Jail/SNF Referral ID:[id number] Provider Name:[place] [facility] [place] Address 1:[address] [facility] Address 2: City:[place] Selection Factors: State:[place] Patient Contact Information Contact Name:TANI Relationship: Address:[address] [place] [address] Work Phone: [facility] Phone: State/Zip Code:[place] [address] Email: Financial Information Financial Class:Medicare Primary Plan Desc:MEDICARE INPATIENT Primary Plan Number:[id number] Secondary Plan Desc:CHARLIE Rangel/u[employer]inn SUPPLEMENTAL INS Secondary Plan Number:[id number] Assessment Information [facility] Initial CM Assessment Living Arrangements What is your living Answers: With Spouse arrangement? Who do you live with? Type Of Residence What kind of residence do Answers: House you live in? Discharge Plan Comments Coordination Status Comments Notes: Patient is an 82yo male who has severe progressive CAD with significant instent restenosis of proximal RCA. Patient was admitted for coronary artery bypass graft x3, perfusion, and trans esophageal echocardiogram. No therapies ordered at this time. CM to stay in touch with Dr. Kapoor and his team regarding patient needs. D/C plan TBD. CM will follow. Date Signed: 11/15/2017 12:03 PM Electronically Signed By:Ankita Swanson LCSW LACE DARRYL Length of stay for Answers: 7-13 days current admission Acuity / Level of Answers: Yes Care: Did the patient have an inpatient admission? Comorbidities - select Answers: Coronary Artery Disease all that apply Other Notes: severe, progressive CAD # of Emergency department Answers: 5-8 visits in the last 6 months Score: 15 Date Signed: 11/22/2017 12:30 PM Electronically Signed By:GHAZALA Scruggs [facility] Progress Note CM Note CM Note Notes: 11/18/2017 Case Management Note Reviewed case with Lucero Patricio this morning. PT is recommending outpatient cardiac rehab. Case Management d/c poc: anticipating independent with cardiac rehab. Case Management to follow. Date Signed: 11/18/2017 04:03 PM Electronically Signed By:Nilsa Weinstein RN [facility] Progress Note CM Note CM Note Notes: Case Management note 11/20/17 [facility] accepted pt. CM met w/ pt and pts for dispo planning. Pt and would like to go w/ [facility]. CM notified [facility]. CM spoke to PAULIE Elkins regarding d/c POC. Anticapte d/c for tomorrow. CM to follow. Plan: [facility] Case Management note 11/19/17 Per PAULIE Crockett patient and want tro explore options for rehab stay prior to discharge home. I have placed referrals to [facility] and [facility] per family request. CM to follow. Plan: to SNF Date Signed: 11/20/2017 01:42 PM Electronically Signed By:GHAZALA Scruggs Case Management Discharge Plan Note Case Management Discharge Discharge Order Complete? Answers: Yes Patient to Obtain Answers: Other Notes: [facility] Medications Transportation Arranged Answers: Other Notes: Naye Waller W/C o2 Transport will Pick (Date 11/22/2017 02:00 PM & Time) EMTALA Complete Answers: No Case Management Transport Answers: Yes Form Complete Faxed Final Orders Answers: Yes Agency/Facility Transfer Answers: Yes Report Printed & Faxed to Receiving Agency Family Notified Answers: Yes Discharge Comments Notes: Pts case discussed w/ REBECCA Hernandez and PAULIE Elkins. Pt is being discharged today. DC orders sent to [facility]. provided REBECCA Hernandez w/ phone number to give report. CM available for changes. Plan: [facility] Date Signed: 11/22/2017 01:41 PM Electronically Signed By:GHAZALA Scruggs Intervention Information
--- NOTE | 2017-11-22 13:42 | ASMTDCNOTE ---
Case Management Discharge Discharge Order Complete? Answers: Yes Patient to Obtain Answers: Other Notes: [facility] Medications Transportation Arranged Answers: Other Notes: Naye Waller W/C o2 Transport will Pick (Date 11/22/2017 02:00 PM & Time) EMTALA Complete Answers: No Case Management Transport Answers: Yes Form Complete Faxed Final Orders Answers: Yes Agency/Facility Transfer Answers: Yes Report Printed & Faxed to Receiving Agency Family Notified Answers: Yes Discharge Comments Notes: Pts case discussed w/ REBECCA Hernandez and PAULIE Elkins. Pt is being discharged today. DC orders sent to [facility]. CM provided REBECCA Hernandez w/ phone number to give report. CM available for changes. Plan: [facility] Date Signed: 11/22/2017 01:41 PM Electronically Signed By:GHAZALA Scruggs
== END 2017-11-22 14:16 | DRG 235 ==
LOC: F2W 11-15 05:28 → F2N 11-15 07:32 → F2W 11-17 09:24 → F2N 11-17 09:28 → F2W 11-17 14:44
PROVIDERS: ADMIT Thoracic Surgery (Cardiothoracic Vascular Surgery); ATTEND Thoracic Surgery (Cardiothoracic Vascular Surgery)
PROC: 02100Z9 Bypass Coronary Artery, One Artery from Left Internal Mammary, Open Approach (ICD-10-PCS; principal; 2017-11-15 07:15)
PROC: 06BQ4ZZ Excision of Left Saphenous Vein, Percutaneous Endoscopic Approach (ICD-10-PCS; principal; 2017-11-15 07:15)
PROC: 06BP4ZZ Excision of Right Saphenous Vein, Percutaneous Endoscopic Approach (ICD-10-PCS; principal; 2017-11-15 07:15)
PROC: 02L70CK Occlusion of Left Atrial Appendage with Extraluminal Device, Open Approach (ICD-10-PCS; principal; 2017-11-15 07:15)
PROC: 5A1221Z Performance of Cardiac Output, Continuous (ICD-10-PCS; principal; 2017-11-15 07:15)
PROC: 021109W Bypass Coronary Artery, Two Arteries from Aorta with Autologous Venous Tissue, Open Approach (ICD-10-PCS; principal; 2017-11-15 07:15)
DX: I25.10 Atherosclerotic heart disease of native coronary artery without angina pectoris (principal); Z95.5 Presence of coronary angioplasty implant and graft; D62 Acute posthemorrhagic anemia; J96.02 Acute respiratory failure with hypercapnia; I48.0 Paroxysmal atrial fibrillation; E11.9 Type 2 diabetes mellitus without complications; G47.33 Obstructive sleep apnea (adult) (pediatric); I10 Essential (primary) hypertension; Z96.0 Presence of urogenital implants; Z85.46 Personal history of malignant neoplasm of prostate; Z86.73 Personal history of transient ischemic attack (TIA), and cerebral infarction without residual deficits
CPT/HCPCS: 82435-PO; 82565-PO; 82947-PO; 83605-PO; 84132-PO; 84295-PO; 84520-PO; 85014-PO; 92526-GN; 92610-GN; 97116-GP; 97161-GP; 97166-GO; 97530-GO; 97530-GP; 97535-GO; G8978-GP-CK; G8979-GP-CI; G8987-GO-CL; G8988-GO-CJ; G8996-GN-CI; G8997-GN-CH; G8998-GN-CH; J0153; J0171; J0282; J0330; J0690; J1265; J1644; J1815; J1885; J1940; J2001; J2150; J2250; J2260; J2270; J2310; J2370; J2440; J2704; J2720; J2930; J3010; J3475; J3480; J7060; P9016; P9041

== ENCOUNTER → 2017-11-26 | Outpatient (CLI) | payer OTHER | LOC: FIMAGING 09:08 | PROVIDERS: ATTEND Thoracic Surgery (Cardiothoracic Vascular Surgery) | DX: J90 Pleural effusion, not elsewhere classified (principal); R91.1 Solitary pulmonary nodule; Z95.1 Presence of aortocoronary bypass graft ==

== ENCOUNTER → 2017-12-03 | Outpatient (CLI) | payer OTHER | LOC: FIMAGING 08:48 | PROVIDERS: ATTEND Thoracic Surgery (Cardiothoracic Vascular Surgery) | DX: Z09 Encounter for follow-up examination after completed treatment for conditions other than malignant neoplasm (principal); Z95.1 Presence of aortocoronary bypass graft; Z98.890 Other specified postprocedural states ==

== ENCOUNTER → 2018-02-02 | Outpatient (CLI) | payer OTHER | LOC: FCPNEURO 21:00 | PROVIDERS: ATTEND Internal Medicine Sleep Medicine | DX: G47.33 Obstructive sleep apnea (adult) (pediatric) (principal); G47.61 Periodic limb movement disorder ==

== ENCOUNTER 2018-03-05 14:37 | Observation (INO) | payer OTHER ==
[2018-03-05] MEDS ORDERED: NS 500 ML IV ONE (14:59)
--- NOTE | 2018-03-05 14:59 | EDPHY ---
H & P Stated Complaint: cp Time Seen by Provider: 03/05/18 14:59 HPI/ROS: HPI CHIEF COMPLAINT: Chest pressure HISTORY OF PRESENT ILLNESS: Very pleasant 82-year-old male, presents emergency room with chest pressure. He states this been going on since yesterday. Got worse and rehab while exercising. He recently had a coronary artery bypass graft. He presents emergency room with pressure across the chest. Denies shortness of breath. Past Medical History: Coronary artery disease, hypertension, TIA Past Surgical History: CABG, carotid endarterectomy Social History: Denies drugs alcohol tobacco. Family History: Noncontributory ROS REVIEW OF SYSTEMS: 10 Systems were reviewed and negative with the exception of the elements mentioned in the history of present illness. Exam Constitutional triage nursing summary reviewed, vital signs reviewed, awake/ alert. Eyes normal conjunctivae and sclera, EOMI, PERRLA. HENT normal inspection, atraumatic, moist mucus membranes, no epistaxis, neck supple/ no meningismus, no raccoon eyes. Respiratory clear to auscultation bilaterally, normal breath sounds, no respiratory distress, no wheezing. Cardiovascular rate normal, regular rhythm, no murmur, no edema, distal pulses normal. Gastrointestinal soft, non-tender, no rebound, no guarding, normal bowel sounds, no distension, no pulsatile mass. Genitourinary no CVA tenderness. Musculoskeletal no midline vertebral tenderness, full range of motion, no calf swelling, no tenderness of extremities, no meningismus, good pulses, neurovascularly intact. Skin pink, warm, & dry, no rash, skin atraumatic. Neurologic awake, alert and oriented x 3, AAOx3, moves all 4 extremities equally, motor intact, sensory intact, CN II-XII intact, normal cerebellar, normal vision, normal speech. Psychiatric normal mood/affect. Heme/Lymph/Immune no lymphadenopathy. Differential diagnosis includes but is not limited to: ACS, atypical chest pain , pneumothorax, pneumonia, pulmonary embolism, aortic dissection, congestive heart failure, tumor, musculoskeletal pain, esophageal pain, GERD, peptic ulcer disease, pancreatitis Medical Decision Making: Plan for this patient IV establishment blood draw, EKG , surveillance system monitor, troponin, basic blood work, rule out acute coronary syndrome Re-evaluation: EKG interpretation by me on record in [facility] system. Impression time of EKG 1448, sinus rhythm rate of 76 T-wave abnormality 2 and 3, flattening V4 V5 V6. No ST elevation. I have asked the hospitalist service Dr. Saweyr to admit the patient for further evaluation of his chest pressure. EKG is stable from previous EKG. Patient's troponin noted be negative. Chest x-ray reviewed. Plan for hospital admission for chest pressure. Will consult Dr. Kapoor. Source: Patient - Personal History Current Tetanus/Diphtheria Vaccine: Unsure Current Tetanus Diphtheria and Acellular Pertussis (TDAP): Unsure Tetanus Vaccine Date: guessing 10 years ago - Medical/Surgical History Hx Asthma: No Hx Chronic Respiratory Disease: No Hx Diabetes: Yes Hx Cardiac Disease: Yes Hx Renal Disease: No Hx Cirrhosis: No Hx Alcoholism: No Hx HIV/AIDS: No Hx Splenectomy or Spleen Trauma: No Other PMH: 2 Stents, CAD, prostate surgery, hernia repair surgery, HTN, knee sx , chronic back pain, NIDDM, hyperlipidemia,CABG - Social History Smoking Status: Former smoker Constitutional: Initial Vital Signs Temperature (C) 36.6 C 03/05/18 14:46 Heart Rate 77 03/05/18 14:46 Respiratory Rate 16 03/05/18 14:46 Blood Pressure 161/94 H 03/05/18 14:46 O2 Sat (%) 94 03/05/18 14:46 O2 Delivery Mode Room Air Allergies/Adverse Reactions: No Known Allergies Allergy (Verified 11/15/17 06:45) Home Medications: Medication Instructions Recorded Pantoprazole Sodium [Protonix 40mg 40 mg PO DAILY 04/25/15 (*)] metFORMIN HCL [Glucophage 500 mg 500 mg PO DAILY@08 08/17/17 (*)] Atorvastatin Calcium 80 mg PO DAILY18 09/22/17 Multivitamins [Multivitamin (*)] 1 each PO DAILY 11/07/17 metFORMIN HCL [Glucophage 500 mg 1,000 mg PO DAILY18 11/07/17 (*)] Acetaminophen [Tylenol 325mg (*)] 325 - 650 mg PO Q4HRS PRN tab 11/22/17 Aspirin [Aspirin 81mg (*)] 81 mg PO DAILY tab.chew 11/22/17 Cholecalciferol Vit D3 [Vitamin D3 1,000 units PO DAILY 03/05/18 (*)] Insulin Regular, Human [Afrezza] 0 - 8 units IH TIDMEAL 03/05/18 Metoprolol Tartrate [Lopressor 50 50 mg PO HS 03/05/18 mg (*)] Medical Decision Making - Diagnostics Imaging Results: Imaging Impressions Chest X-Ray 03/05/18 14:59 Impression: Nothing acute detected. - Data Points Laboratory Results: Laboratory Results 03/05/18 15:04 03/05/18 15:04 03/05/18 03/05/18 03/05/18 15:07 15:04 15:04 WBC RBC Hgb Hct MCV MCH MCHC RDW Plt Count MPV Neut % (Auto) Lymph % (Auto) Foster % (Auto) Eos % (Auto) Baso % (Auto) Nucleat RBC Rel Count Absolute Neuts (auto) Absolute Lymphs (auto) Absolute Monos (auto) Absolute Eos (auto) Absolute Basos (auto) Absolute Nucleated RBC Immature Gran % Immature Gran # PT 13.4 SEC SEC (12.0-15.0) INR 1.00 (0.83-1.16) APTT 28.6 SEC SEC (23.0-38.0) Sodium 142 mEq/L mEq/L (135-145) Potassium 4.4 mEq/L mEq/L (3.5-5.2) Chloride 104 mEq/L mEq/L (97-110) Carbon Dioxide 26 mEq/l mEq/l (22-31) Anion Gap 12 mEq/L mEq/L (6-14) BUN 24 mg/dL H mg/dL (7-23) Creatinine 1.1 mg/dL mg/dL (0.7-1.3) Estimated GFR > 60 Glucose 124 mg/dL H mg/dL (70-100) Calcium 9.8 mg/dL mg/dL (8.5-10.4) Magnesium 1.7 mg/dL mg/dL (1.6-2.3) Total Bilirubin 0.4 mg/dL mg/dL (0.1-1.4) Conjugated Bilirubin 0.1 mg/dL mg/dL (0.0-0.5) Unconjugated Bilirubin 0.3 mg/dL mg/dL (0.0-1.1) AST 26 IU/L IU/L (17-59) ALT 28 IU/L IU/L (21-72) Alkaline Phosphatase 51 IU/L IU/L (38-126) POC Troponin I 0.03 ng/mL ng/mL (0.00-0.08) NT-Pro-B Natriuret Pep 728 pg/mL H pg/mL (0-450) Total Protein 6.7 g/dL g/dL (6.3-8.2) Albumin 4.1 g/dL g/dL (3.5-5.0) Lipase 149 IU/L IU/L (23-300) 03/05/18 15:04 WBC 5.53 10^3/uL 10^3/uL (3.80-9.50) RBC 3.82 10^6/uL L 10^6/uL (4.40-6.38) Hgb 12.0 g/dL L g/dL (13.7-17.5) Hct 35.3 % L % (40.0-51.0) MCV 92.4 fL fL (81.5-99.8) MCH 31.4 pg pg (27.9-34.1) MCHC 34.0 g/dL g/dL (32.4-36.7) RDW 13.6 % % (11.5-15.2) Plt Count 158 10^3/uL 10^3/uL (150-400) MPV 9.5 fL fL (8.7-11.7) Neut % (Auto) 68.2 % % (39.3-74.2) Lymph % (Auto) 23.9 % % (15.0-45.0) Foster % (Auto) 5.4 % % (4.5-13.0) Eos % (Auto) 1.8 % % (0.6-7.6) Baso % (Auto) 0.5 % % (0.3-1.7) Nucleat RBC Rel Count 0.0 % % (0.0-0.2) Absolute Neuts (auto) 3.77 10^3/uL 10^3/uL (1.70-6.50) Absolute Lymphs (auto) 1.32 10^3/uL 10^3/uL (1.00-3.00) Absolute Monos (auto) 0.30 10^3/uL 10^3/uL (0.30-0.80) Absolute Eos (auto) 0.10 10^3/uL 10^3/uL (0.03-0.40) Absolute Basos (auto) 0.03 10^3/uL 10^3/uL (0.02-0.10) Absolute Nucleated RBC 0.00 10^3/uL 10^3/uL (0-0.01) Immature Gran % 0.2 % % (0.0-1.1) Immature Gran # 0.01 10^3/uL 10^3/uL (0.00-0.10) PT INR APTT Sodium Potassium Chloride Carbon Dioxide Anion Gap BUN Creatinine Estimated GFR Glucose Calcium Magnesium Total Bilirubin Conjugated Bilirubin Unconjugated Bilirubin AST ALT Alkaline Phosphatase POC Troponin I NT-Pro-B Natriuret Pep Total Protein Albumin Lipase Medications Given: Aspirin Buffered (Aspirin Ec) 81 mg PO DAILY [facility] Stop: 09/01/18 16:59 Last Admin: 03/05/18 18:24 Dose: 81 mg Insulin Human Lispro (Humalog Lispro) 0 unit SC TIDMEAL STEFAN PRN Reason: Protocol Stop: 09/01/18 17:59 Last Admin: 03/05/18 18:22 Dose: Not Given Metoprolol Tartrate (Lopressor) 50 mg PO HS [facility] Stop: 09/01/18 20:59 Last Admin: 03/05/18 20:40 Dose: 50 mg Discontinued Medications Sodium Chloride (Ns) 500 mls @ 1,000 mls/hr IV EDNOW ONE PRN Reason: Protocol Stop: 03/05/18 15:28 Last Admin: 03/05/18 15:05 Dose: 500 mls Point of Care Test Results: Chemistry 03/05/18 15:07 POC Troponin I 0.03 ng/mL ng/mL (0.00-0.08) Departure - Departure Disposition: [facility] Inpatient Acute Clinical Impression: Chest pain Qualifiers: Chest pain type: unspecified Qualified Code(s): R07.9 - Chest pain, unspecified Condition: Fair
[2018-03-05 15:25] LABS: PLATELET COUNT 158 10^3/uL (150-400)
[2018-03-05 15:32] LABS: PROTIME(PATIENT) 13.4 SEC (12.0-15.0)
[2018-03-05] MEDS ORDERED: ACETAMINOPHEN 325 MG TAB PO PRN (16:45)
[2018-03-05] MEDS ORDERED: ONDANSETRON DISINTEGRATING 4 MG TAB PO PRN (16:45)
[2018-03-05] MEDS ORDERED: ONDANSETRON 4 MG/2 ML VIAL IVP PRN (16:45)
[2018-03-05] MEDS ORDERED: NITROGLYCERIN 0.4 MG BTL SL PRN (16:49)
--- NOTE | 2018-03-05 16:58 | PDGENHP ---
History and Physical - Chief Complaint Chest Pain - History of Present Illness Arron Hankins is a 82 yo M with a PMHx of CAD s/p CABG 11/16/2017, HTN, HLD, NIDDM, carotid stenosis s/p carotid endarterectomy 09/2017 who presents to [facility] for chest pain. Patient reports that chest pain started yesterday morning. Pain is located across the chest, described as tight in quality, non-radiating, associated with mild SOB, he reports "hard to take a deep breath". He states that pain was mild but persisted throughout the day. He denies other associated symptoms such as nausea, diaphoresis, edema, palpitations, n/v, f/c, d/c. He does report recent increase in anxiety due to 's condition. Pain persisted to today. He notes that he was on the treadmill and asked by his therapist how he was doing. He reported he continued to have this chest pain so he was referred to ED. He denies any acute worsening or change in quality with exertion. He denies any changes in pain in relation to eating/food. History Information - Allergies/Home Medication List Allergies/Adverse Reactions: No Known Allergies Allergy (Verified 11/15/17 06:45) Home Medications: Pantoprazole Sodium [Protonix 40mg (*)] 40 mg PO DAILY 04/25/15 [Last Taken ] metFORMIN HCL [Glucophage 500 mg (*)] 500 mg PO DAILY@08 08/17/17 [Last Taken ] Atorvastatin Calcium 80 mg PO DAILY18 09/22/17 [Last Taken 11/14/17] Multivitamins [Multivitamin (*)] 1 each PO DAILY 11/07/17 [Last Taken 11/14/17] metFORMIN HCL [Glucophage 500 mg (*)] 1,000 mg PO DAILY18 11/07/17 [Last Taken 11/13/17] Cholecalciferol Vit D3 [Vitamin D3 (*)] 1,000 units PO DAILY 03/05/18 [Last Taken Unknown] Metoprolol Tartrate [Lopressor 50 mg (*)] 50 mg PO HS 03/05/18 [Last Taken Unknown] I have personally reviewed and updated: family history, medical history, social history, surgical history - Past Medical History coronary artery disease, hypertension, hyperlipidemia, myocardial infarction Additional medical history: Carotid stenosis. Coronary artery disease. Chronic kidney disease stage 3. Diabetes mellitus. Hypertension. Benign pancreatic mass. Prostate cancer - Surgical History Reports: coronary bypass surgery Additional surgical history: Recent CEA. Prostatectomy 25 years - Family History Positive for: non-pertinent Additional family history: Father with CVA - Social History Smoking Status: Former smoker Additional social history: Independent in his ADLs, lives with Review of Systems Review of Systems: ROS: 10pt was reviewed & negative except for what was stated in HPI & below Physical Exam Physical Exam: Temp Pulse Resp BP Pulse Ox 36.6 C 78 16 152/71 H 98 03/05/18 14:46 03/05/18 16:31 03/05/18 16:31 03/05/18 16:31 03/05/18 16:31 Constitutional: no apparent distress Eyes: PERRL Ears, Nose, Mouth, Throat: moist mucous membranes Cardiovascular: regular rate and rhythym Respiratory: no respiratory distress Gastrointestinal: normoactive bowel sounds Genitourinary: no bladder fullness Skin: warm Musculoskeletal: full muscle strength Neurologic: AAOx3 Psychiatric: interacting appropriately Lab Data & Imaging Review 03/05/18 15:04 03/05/18 15:04 WBC 5.53 10^3/uL (3.80-9.50) 03/05/18 15:04 RBC 3.82 10^6/uL (4.40-6.38) L 03/05/18 15:04 Hgb 12.0 g/dL (13.7-17.5) L 03/05/18 15:04 Hct 35.3 % (40.0-51.0) L 03/05/18 15:04 MCV 92.4 fL (81.5-99.8) 03/05/18 15:04 MCH 31.4 pg (27.9-34.1) 03/05/18 15:04 MCHC 34.0 g/dL (32.4-36.7) 03/05/18 15:04 RDW 13.6 % (11.5-15.2) 03/05/18 15:04 Plt Count 158 10^3/uL (150-400) 03/05/18 15:04 MPV 9.5 fL (8.7-11.7) 03/05/18 15:04 Neut % (Auto) 68.2 % (39.3-74.2) 03/05/18 15:04 Lymph % (Auto) 23.9 % (15.0-45.0) 03/05/18 15:04 Gregory % (Auto) 5.4 % (4.5-13.0) 03/05/18 15:04 Eos % (Auto) 1.8 % (0.6-7.6) 03/05/18 15:04 Baso % (Auto) 0.5 % (0.3-1.7) 03/05/18 15:04 Nucleat RBC Rel Count 0.0 % (0.0-0.2) 03/05/18 15:04 Absolute Neuts (auto) 3.77 10^3/uL (1.70-6.50) 03/05/18 15:04 Absolute Lymphs (auto) 1.32 10^3/uL (1.00-3.00) 03/05/18 15:04 Absolute Monos (auto) 0.30 10^3/uL (0.30-0.80) 03/05/18 15:04 Absolute Eos (auto) 0.10 10^3/uL (0.03-0.40) 03/05/18 15:04 Absolute Basos (auto) 0.03 10^3/uL (0.02-0.10) 03/05/18 15:04 Absolute Nucleated RBC 0.00 10^3/uL (0-0.01) 03/05/18 15:04 Immature Gran % 0.2 % (0.0-1.1) 03/05/18 15:04 Immature Gran # 0.01 10^3/uL (0.00-0.10) 03/05/18 15:04 PT 13.4 SEC (12.0-15.0) 03/05/18 15:04 INR 1.00 (0.83-1.16) 03/05/18 15:04 APTT 28.6 SEC (23.0-38.0) 03/05/18 15:04 Sodium 142 mEq/L (135-145) 03/05/18 15:04 Potassium 4.4 mEq/L (3.5-5.2) 03/05/18 15:04 Chloride 104 mEq/L (97-110) 03/05/18 15:04 Carbon Dioxide 26 mEq/l (22-31) 03/05/18 15:04 Anion Gap 12 mEq/L (6-14) 03/05/18 15:04 BUN 24 mg/dL (7-23) H 03/05/18 15:04 Creatinine 1.1 mg/dL (0.7-1.3) 03/05/18 15:04 Estimated GFR > 60 03/05/18 15:04 Glucose 124 mg/dL (70-100) H 03/05/18 15:04 Calcium 9.8 mg/dL (8.5-10.4) 03/05/18 15:04 Magnesium 1.7 mg/dL (1.6-2.3) 03/05/18 15:04 Total Bilirubin 0.4 mg/dL (0.1-1.4) 03/05/18 15:04 Conjugated Bilirubin 0.1 mg/dL (0.0-0.5) 03/05/18 15:04 Unconjugated Bilirubin 0.3 mg/dL (0.0-1.1) 03/05/18 15:04 AST 26 IU/L (17-59) 03/05/18 15:04 ALT 28 IU/L (21-72) 03/05/18 15:04 Alkaline Phosphatase 51 IU/L (38-126) 03/05/18 15:04 POC Troponin I 0.03 ng/mL (0.00-0.08) 03/05/18 15:07 NT-Pro-B Natriuret Pep 728 pg/mL (0-450) H 03/05/18 15:04 Total Protein 6.7 g/dL (6.3-8.2) 03/05/18 15:04 Albumin 4.1 g/dL (3.5-5.0) 03/05/18 15:04 Lipase 149 IU/L (23-300) 03/05/18 15:04 EKG Interpretation: Positive for: normal sinsus rhythm, NS ST wave abnormalities Assessment & Plan Assessment: Chest pain (Acute) - Hx of CAD s/p PCI then CABG 11/2017 - Reports 1 day hx, across top of chest, tight in quality, non-radiating, associated with SOB - Trop negative on admission, EKG without significant ST-T wave changes - Initiated chest pain protocol with serial Troponin, EKG, MPS for the AM - Continue home ASA, Metoprolol - Will make NPO after midnight for MPS, if any abnormalities will consult cardiology - Discussed with CT Surgery PA, Dr. Kapoor to see patient tomorrow CAD s/p CABG - Management of chest pain as above - Continue home ASA, Statin - Dr. Kapoor to see patient in the AM HTN - SBP elevated to 150's on admission - Reports being on anti-hypertensives prior to CABG - Continue to monitor, if SBP remains >150 will initiate anti-hypertensive IDDM - Hold home Metformin - Patient on Inhaled Insulin at home, will place on SSI while IP HLD - Continue Atorvastatin GERD - Continue home PPI FEN: Cardiac, NPO overnight DVT PPx: Lovenox Code: FULL Dispo: Admit to Observation, pending clinical course
[2018-03-05] MEDS ORDERED: D50W 25 GM/50 ML SYR IVP PRN (17:10)
[2018-03-05] MEDS: INSULIN LISPRO 100 UNIT/ML SC SCH (18:22)
[2018-03-05] MEDS: ASPIRIN EC 81 MG TAB PO SCH (18:24)
--- NOTE | 2018-03-05 20:51 | CPEKG ---
Test Reason : OPEN Blood Pressure : / mmHG Vent. Rate : 076 BPM Atrial Rate : 076 BPM P-R Int : 161 ms QRS Dur : 084 ms QT Int : 393 ms P-R-T Axes : 068 029 057 degrees QTc Int : 442 ms Sinus rhythm Borderline T abnormalities, lateral leads Confirmed by Belia Gayle ([id number]) on 03/05/2018 8:51:24 PM Referred By: Confirmed By:Belia Gayle
[2018-03-05] MEDS ORDERED: METOPROLOL TARTRATE 50 MG TAB PO SCH (21:00)
[2018-03-06 07:43] VITALS: BP 130/61
[2018-03-06] MEDS: INSULIN LISPRO 100 UNIT/ML SC SCH (08:32)
[2018-03-06] MEDS: ASPIRIN EC 81 MG TAB PO SCH (08:33)
--- NOTE | 2018-03-06 08:49 | ASMTLACE ---
LACE Comorbidities - select Answers: Cerebrovascular disease all that apply (CVA, TIA, aneurysms, vasc ular dementia) Coronary Artery Disease Diabetes (uncontrolled or controlled) Moderate or severe liver or renal disease Opioid dependence / Chronic pain Previous myocardial infarction Other Notes: HTN; HLD # of Emergency department Answers: 3-4 visits in the last 6 months Score: 17 Date Signed: 03/06/2018 08:49 AM Electronically Signed By:Anat Moncada
[2018-03-06] MEDS ORDERED: ENOXAPARIN 40 MG/0.4 ML SYR SC SCH (09:00)
[2018-03-06] MEDS ORDERED: ATORVASTATIN CALCIUM 40 MG TAB PO SCH (09:00)
--- NOTE | 2018-03-06 12:56 | PDCARST ---
CAR Stress Test Results Type of Stress Test: Stress echo Indication: cp/CAD Description of Procedure: After informed consent was obtained, pt was exercised according to Hugo Protocol. Monitoring was performed with standard stress test cell technician electrode placement. Vital signs were monitored according to protocol throughout the procedure. STRESS EKG AND HEMODYNAMIC DATA. Exercise time: 6: 08 min. This is equivalent to: 7.1 METS. Resting heart rate: 79 bpm. Resting blood pressure: 118/64 mmHg. Resting O2 saturation: 96 %. Peak heart rate: 121 bpm. This is 88 % of age predicted maximum heart rate response. Peak blood pressure: 152/78 mmHg. Reason for termination: The test was stopped due to maximal effort . Symptoms: The patient experienced no typical symptoms of angina during stress or recovery. He noted a sharp chest pain that felt musculoskeletal in pectoral region. STRESS TEST ANALYSIS. Baseline ECG: SR. Stress ECG: sinus tach. No exercise induced ischemic ECG changes. Rhythm: Occasional PVC singless at baseline; frequent PVC singles in recovery, 3 beat VT, occasional PVC couplets. Blood pressure: blood pressure response to exercise. Exercise tolerance: The patient has normal exercise tolerance adjusted for age and gender. Symptoms: Atypical exercise induced symptoms. Impression: IMPRESSIONS: Stress ECG is equivocal for ischemia due to atypical cp. Conclusion: Stress echo imaging wnl. Follow up with Dr. Miles in outpatient setting.
--- NOTE | 2018-03-06 13:21 | GCON ---
CARDIOLOGY CONSULTATION REFERRING PHYSICIAN: Dr. Simpson REASON FOR CONSULTATION: We were asked by Dr. Simpson to evaluate the patient for his chest pain. PRIMARY CARE PHYSICIAN: Dr. Contreras. PRIMARY LEGAL EXAMINER: Dr. Miles. HISTORY OF PRESENT ILLNESS: The patient is an 82-year-old male with a past medical history significant for CAD, status post CABG in November 2017, dyslipidemia, hypertension, asj-tudbdbo-cqlnzxfjm diabetes mellitus, carotid disease, status post carotid endarterectomy in September of 2017, who presented to the emergency department from cardiac rehab yesterday. Yesterday morning, he awoke with what he describes as a tightness and tense sensation across his anterior chest just below his clavicles. This was omnipresent and did not worsen with exertion. He describes it as mild in intensity. He has shortness of breath on exertion that has been present for several years. This did not worsen. He denies any recent palpitations, presyncope, syncope, PND, orthopnea , or edema. He admits to high stress recently due to his 's health issues. He described his discomfort to cardiac rehab as similar symptoms did precede his need for bypass. Currently, he reports he is pain-free. He went to sleep last night and pain resolved upon awakening. PAST MEDICAL HISTORY: 1. CAD with previous PCI and recent CABG in 2018. 2. Carotid endarterectomy due to TIA and carotid stenosis. 3. Diabetes. 4. Nocturnal hypoxemia. 5. History of prostate cancer. 6. History of gout. PAST SURGICAL HISTORY: CABG, carotid endarterectomy, left atrial appendage ligation, prostatectomy. SOCIAL HISTORY: Patient is . His is present in the room. He is a former smoker. He reports daily alcohol intake. FAMILY HISTORY: Father had CVA. REVIEW OF SYSTEMS: As per HPI. A complete 10-point review of systems was obtained and is negative, except for what is dictated. PHYSICAL EXAMINATION: VITAL SIGNS: BP of 130/61, heart rate 79, respirations 20, O2 saturation 96% on room air, temp of 97.5 degrees Fahrenheit. GENERAL: He is a very pleasant male in no apparent distress. HEENT: Head is normocephalic, atraumatic. Eyes are without scleral icterus. HEART: Regular rate and rhythm. LUNGS: Clear to auscultation bilaterally. ABDOMEN: Soft, nontender, nondistended. : With no Preston present. SKIN: Warm and dry. PSYCH: Normal mood and affect, though somewhat agitated due to being admitted in the hospital. NEURO: No focal deficits detected. LABORATORY DATA: CBC with WBC 5.53, hemoglobin 12, hematocrit 35.3, platelet count 158. BMP with sodium 142, potassium 4.4, chloride 104, CO2 26, BUN 24, creatinine 1.1, glucose 124. Troponin of 0.03, followed by 0.037, followed by 0.043. NT-proBNP of 728. A 12-lead ECG personally interpreted demonstrates sinus rhythm with mild nonspecific ST-T wave abnormalities in the lateral leads. Chest x-ray, 03/05/2018, shows nothing acute. I reviewed the patient's care with Dr. Simpson. IMPRESSION AND PLAN: The patient is an 82-year-old male who presents with chest discomfort. 1. Chest discomfort. Somewhat worrisome in that it is similar to what preceded his bypass; however, it is atypical in its pattern. He has minimally elevated troponin. Options were reviewed with patient, and we will proceed to stress echo for further evaluation. Risks, benefits, and alternatives reviewed. 2. History of coronary artery disease. He is appropriately medically managed with aspirin, statin, and beta rosalio. 3. Hypertension. Blood pressure currently appears well controlled. 4. More recommendations will follow results of his stress test. /[id number]/MODL MTDD
--- NOTE | 2018-03-06 13:50 | ECHO ---
[email or web address] [place] [id number] Main: [phone] Fax: Transthoracic Echocardiogram Name: MATTHEW HEARD MR#: [id number] Study Date: 03/06/2018 Study Time: 12:05 PM Date of : 1935 Age: 82 year(s) Height: ( ) Weight: ( ) BSA: Gender: Male Examination: Stress Echo Indication: Chest pain/recent CABG Image Quality: Contrast: Requested by: Shawnee Story BP: / Heart Rate: Rhythm: Indication: Chest pain/recent CABG Procedure Staff Truck Safety Inspector: Shraddha Herrera RDCS Reading Physician: Osvaldo Varela MD Requesting Provider: Conclusions: This is a stress echocardiogram. There is a full and separately dictated report for the exercise treadmill portion. This was reportedly normal with good exercise capacity. The resting echocardiographic images demonstrated a normal ejection fraction without significant wall motion abnormalities. Immediate post-stress images demonstrated normal augmentation of contractility in all cardiac segments. This is a normal stress echocardiogram. Measurements: Chambers Valvular Assessment AV/MV Valvular Assessment TV/PV Normal Normal Normal Name Value Range Name Value Range Name Value Range Continued Measurements: Findings: Left Ventricle: Normal size left ventricle. No regional wall motion abnormality. LV wall motion was normal before and after exercise.. Exam Comments: This was a stress echo.. (No Signature Object) Patient: MATTHEW HEARD Study Date: 03/06/2018 Page 1 of 1 12:05 PM [id number]
--- NOTE | 2018-03-06 13:58 | PDDCSUM ---
Discharge Summary Discharge Summary: Date of Admission: 03/05/2018 Date of Discharge: 03/06/2018 Consults: Cardiology Procedures: Stress Echo Followup: PCP, Cardiology Hospital Course Problem List: Chest pain (Acute) - Hx of CAD s/p PCI then CABG 11/2017 - Reports 1 day hx, across top of chest, tight in quality, non-radiating, associated with SOB - Trop negative on admission, EKG without significant ST-T wave changes - Overnight Troponins trended slightly up to 0.037--> 0.043, consulted Cardiology who recommended stress ECHO which was normal - Continue home ASA, Metoprolol CAD s/p CABG - Management of chest pain as above - Continue home ASA, Statin HTN - SBP elevated to 150's on admission - Reports being on anti-hypertensives prior to CABG - Continue to monitor IDDM - Held home Metformin - Patient on Inhaled Insulin at home, placed on SSI while IP HLD - Continue Atorvastatin GERD - Continue home PPI Time spent on discharge was >35 minutes with >50% of time spent on patient education and counseling.
--- NOTE | 2018-03-06 14:23 | ECHO ---
[email or web address] [address] [address] Main: [phone] Fax: Transthoracic Echocardiogram Name: MATTHEW HEARD MR#: [id number] Study Date: 03/06/2018 Study Time: 11:32 AM Date of : 1935 Age: 82 year(s) Height: 177.8 cm (70 in.) Weight: 69.4 kg (153 lb.) BSA: 1.86 m2 Gender: Male Examination: Limited Echo Indication: Post recent CABG/left endarectomy Image Quality: Contrast: Requested by: Shawnee Story BP: 130 mmHg/61 mmHg Heart Rate: Rhythm: Indication: Post recent CABG/left endarectomy Procedure Staff It Help Desk Technician: Shraddha Herrera [facility] Reading Physician: Osvaldo Varela MD Requesting Provider: Conclusions: Normal size left ventricle. Global hypercontractility of the left ventricle. The ejection fraction is visually estimated to be 60 %. Normal size right ventricle. Normal RV function. The left atrium is normal in size. The right atrium is normal in size. Mild mitral annular calcification. Minimal aortic cusp calcification is noted. Trivial to mild aortic valve regurgitation. Measurements: Chambers Valvular Assessment AV/MV Valvular Assessment TV/PV Normal Normal Normal Name Value Range Name Value Range Name Value Range Visual EF: 60 % Continued Measurements: Findings: Left Ventricle: Normal size left ventricle. No LV hypertrophy. Global hypercontractility of the left ventricle. The ejection fraction is visually estimated to be 60 %. No regional wall motion abnormality. Right Ventricle: Normal size right ventricle. Normal RV function. Left Atrium: The left atrium is normal in size. Right Atrium: Patient: MATTHEW HEARD Study Date: 03/06/2018 Page 1 of 2 11:32 AM The right atrium is normal in size. Mitral Valve: Mild mitral annular calcification. Aortic Valve: Minimal aortic cusp calcification is noted. Trivial to mild aortic valve regurgitation. (No Signature Object) Patient: MATTHEW HEARD Study Date: 03/06/2018 Page 2 of 2 11:32 AM [id number]
== END 2018-03-06 13:25 | disposition home or self-care (01) ==
LOC: F2W 17:03
PROVIDERS: ADMIT Internal Medicine; ATTEND Internal Medicine
DX: R07.89 Other chest pain (principal); I25.10 Atherosclerotic heart disease of native coronary artery without angina pectoris; I12.9 Hypertensive chronic kidney disease with stage 1 through stage 4 chronic kidney disease, or unspecified chronic kidney disease; N18.3 Chronic kidney disease, stage 3 (moderate); E11.22 Type 2 diabetes mellitus with diabetic chronic kidney disease; E78.5 Hyperlipidemia, unspecified; K21.9 Gastro-esophageal reflux disease without esophagitis; M54.5 Low back pain; Z79.4 Long term (current) use of insulin; Z87.891 Personal history of nicotine dependence; Z95.1 Presence of aortocoronary bypass graft; Z85.46 Personal history of malignant neoplasm of prostate
CPT/HCPCS: 71045; 93005; 93308; 93351; 96372; 97161; 99285; G0378; G8978; G8979; G8980; J1650; 84484-ER